=== PATIENT | female | born 1970 | race Hispanic/Latino ===

== ENCOUNTER 2020-01-08 11:31 | Emergency (ER) | payer BC ==
[2020-01-08 12:51] LABS: #Basophils 0.1 thou/uL (0.0-0.2); #Eosinphils 0.3 thou/uL (0.0-0.7); #Lymphocytes 1.5 thou/uL (1.20-3.40); #Monocytes 0.4 thou/uL (0.11-0.59); %Basophils 2.1 % (0.0-1.0); %Eosinophils 7.2 % (0.0-10.0); %Lymphocytes 35.2 % (21.0-51.0); %Monocytes 8.7 % (0.0-10.0); %Neutrophils 46.9 % (42.0-75.0); Hemoglobin 10.7 g/dL (12.0-16.0); White Blood Cell (WBC) Count 4.3 thou/uL (4.8-10.8)
--- NOTE | 2020-01-08 13:02 | CT ---
EXAM: Brain CTWithout contrast: HISTORY: Double vision COMPARISON: None FINDINGS: No focal mass or midline shift. No intra or extra-axial hemorrhage. Sinuses and mastoids are clear of acute process. IMPRESSION: No mass or bleed or other significant acute intracranial process.
[2020-01-08 13:06] LABS: Mean Corpuscular HGB CONC 31.4 g/dL (32.0-36.0); Mean Corpuscular Hemoglobin 22.9 pg (27.0-31.0); Mean Corpuscular Volume 72.9 fL (78.0-98.0); Platelet Count 318 thou/uL (130-400); RBC Distribution Width 15.4 % (11.5-14.5)
[2020-01-08 13:07] LABS: ALT (SGPT) 26 U/L (8-55); AST (SGOT) 30 U/L (5-34); Albumin 4.4 g/dL (3.5-5.0); Alkaline Phosphatase 52 U/L (40-110); Anion Gap 14 mmol/L (10-20); BUN (Urea Nitrogen) 12 mg/dL (7.0-18.7); Bilirubin, Total 0.4 mg/dL (0.2-1.2); Calc. Creatinine Clearance 0 mL/min (70-130); Calcium 9.4 mg/dL (7.8-10.44); Carbon Dioxide 21 mmol/L (22-29); Chloride 105 mmol/L (98-107); Estimated GFR-MDRD Greater than 90; Globulin 3.1 g/dL (2.4-3.5); Glucose 192 mg/dL (70-105); Potassium 3.9 mmol/L (3.5-5.1); Protein, Total 7.5 g/dL (6.0-8.3); Sodium 136 mmol/L (136-145)
[2020-01-08 13:15] LABS: MDiff Complete? YES; Microcytosis SLIGHT = 6-15 cells (100X) (0-5/hpf); Platelet Morphology Comment Appears Adequate; Polychromasia SLIGHT = 2-3 cells (100X) (0-2/hpf); Target Cells SLIGHT = 2-5 cells (100X) (0-1/hpf); Tear Drops SLIGHT = 2-5 cells (100X) (0-1/hpf)
== END 2020-01-08 14:25 | disposition home or self-care (01) ==
LOC: ERS 11:31
DX: G70.9 Myoneural disorder, unspecified (principal); E11.9 Type 2 diabetes mellitus without complications; I10 Essential (primary) hypertension; E03.9 Hypothyroidism, unspecified; Z79.84 Long term (current) use of oral hypoglycemic drugs; Z79.899 Other long term (current) drug therapy
CPT/HCPCS: 36415; 70450; 80053; 83519; 84439; 85025; 85652

== ENCOUNTER 2020-01-15 18:24 | Inpatient (IN) | payer BC ==
[~2020-01-15 18:24] MED LIST: Iopamidol-370 76% 500 ML 1 ML ONE
[2020-01-15] MEDS ORDERED: cefTRIAXone\\ROCEPHIN 2 GM VIAL ONE (19:08)
[2020-01-15] MEDS ORDERED: methylPREDNISolone Sod Succ/PF 125 MG/2 ML VIAL ONE (19:10)
[2020-01-15 19:18] LABS: Actual Bicarbonate (HCO3a) 19.4 mEq/L (22-28); Analyzer IN Cardio ER; Base Excess (BEa) -3.9 mEq/L (-2.0 to +3.0); Calcium, Ionized (arterial) 1.18 mmol/L (1.12-1.30); Carboxyhemoglobin (COHb) 0.5 gm% (0.0-3.0); Hemoglobin (Hb) 11.7 g/dL (12.0-16.0); O2 Tension (PaO2), arterial 77.9 mmHg (80.0-100.0); Potassium - ABG Lab 3.99 mmol/L (3.70-5.30); pH, Arterial 7.43 (7.35-7.45)
[2020-01-15 19:19] LABS: Puncture Site LRA
[2020-01-15 19:21] LABS: #Eosinphils 0.3 thou/uL (0.0-0.7); #Lymphocytes 2.1 thou/uL (1.20-3.40); #Monocytes 0.6 thou/uL (0.11-0.59); #Neutrophils 2.6 thou/uL (1.40-6.50); %Eosinophils 5.3 % (0.0-10.0); %Lymphocytes 37.5 % (21.0-51.0); %Monocytes 10.9 % (0.0-10.0); %Neutrophils 46.4 % (42.0-75.0); Hemoglobin 11.4 g/dL (12.0-16.0); Mean Corpuscular HGB CONC 31.4 g/dL (32.0-36.0); Mean Corpuscular Hemoglobin 23.1 pg (27.0-31.0); Mean Corpuscular Volume 73.7 fL (78.0-98.0); Mean Platelet Volume 7.7 fL (7.4-10.4); Platelet Count 366 thou/uL (130-400); RBC Distribution Width 15.7 % (11.5-14.5); Red Blood Cell (RBC) Count 4.91 mill/uL (4.20-5.40); White Blood Cell (WBC) Count 5.7 thou/uL (4.8-10.8)
[2020-01-15 19:42] LABS: ALT (SGPT) 24 U/L (8-55); AST (SGOT) 24 U/L (5-34); Albumin 4.6 g/dL (3.5-5.0); Alkaline Phosphatase 51 U/L (40-110); Anion Gap 16 mmol/L (10-20); BUN (Urea Nitrogen) 9 mg/dL (7.0-18.7); Bilirubin, Total 0.3 mg/dL (0.2-1.2); Calc. Creatinine Clearance 0 mL/min (70-130); Calcium 9.6 mg/dL (7.8-10.44); Carbon Dioxide 21 mmol/L (22-29); Chloride 102 mmol/L (98-107); Estimated GFR-MDRD Greater than 90; Glucose 133 mg/dL (70-105); Magnesium 1.9 mg/dL (1.6-2.6); Potassium 4.1 mmol/L (3.5-5.1); Protein, Total 7.6 g/dL (6.0-8.3); Sodium 135 mmol/L (136-145)
[2020-01-15] MEDS ORDERED: Calcium Carbonate 500 MG ChewTAB PO PRN (20:21)
[2020-01-15] MEDS ORDERED: Ondansetron ODT 4 MG TAB PO PRN (20:21)
[2020-01-15] MEDS ORDERED: Acetaminophen 650 MG Suppository PR PRN (20:21)
[2020-01-15] MEDS ORDERED: Ondansetron PF 4 MG/2 ML Vial IVP PRN (20:21)
[2020-01-15] MEDS ORDERED: HYDROcodone/Acetaminophen 5/325 mg Tablet PO PRN (20:21)
[2020-01-15 20:23] LABS: Bilirubin Negative (Negative); Blood, Urine Negative (Negative); Clarity Clear (Clear); Glucose, Urine (Dipstick) Greater than 1000 mg/dL (Negative); Ketone, Urine Negative (Negative); Leukocyte Negative Leu/uL (Negative); Nitrite Negative (Negative); Protein, Urine (Dipstick) Negative (Neg-Trace); Specific Gravity, Urine 1.041 (1.002-1.036); Urobilinogen Normal mg/dL (Less than 2); pH, Urine 5.5 (5.0-9.0)
--- NOTE | 2020-01-15 20:28 | PDOC.HHP ---
Hospitalist HPI - History of Present Illness weakness dizzyness sob History of Present Illness: case of an 49y/o female with pmhx HTN, DM hypothyroidism and ocular myasthenia dx 1 week ago who comes to hospital due to progressive weakness and dyspnea. patient states her initial symptoms started with several weeks of double vision, last week she came to the hospital for the same symptoms and was diagnosed with ocular myasthenia gravis by Dr. Winters. she was discharge with mestinon which she refers has been taking. She reports began feeling much weaker and began to have difficulty breathing since wens which was progressive and more pronounce today for which she came to hospital for evaluation. She denies any recent fevers chills nausea vomiting diarrhea dysuria or cough Hospitalist ROS - Review of Systems All other systems reviewed; all pertinent +/- noted in HPI/Subj Hospitalist History - Past Surgical History Past Surgical History: reports: - Family History Family History: reports: no pertinent history - Social History Smoking Status: Never smoker Alcohol: reports: Heavy Drugs: reports: none Living Situation: With Family - Exam General Appearance: NAD, awake alert Eye: PERRL, anicteric sclera Eye - other findings: L ptosis ENT: normocephalic atraumatic, no oropharyngeal lesions, moist mucosa ENT - other findings: neck weakness Neck: supple, symmetric, no JVD, no thyromegaly, no lymphadenopathy Heart: RRR, no murmur, no gallops, no rubs Respiratory: CTAB, no wheezes, no rales, no ronchi Gastrointestinal: soft, non-tender, non-distended, normal bowel sounds Extremities: no cyanosis, no clubbing, no edema Skin: normal turgor, no lesions, no rashes Neurological: normal sensation to touch Neurological - other findings: ptosis Musculoskeletal: normal tone, no muscle wasting Musculoskeletal - other findings: 4/5 in all extremities Psychiatric: normal affect, normal behavior, A&O x 3 Hospitalist Results - Labs Result Diagrams: 01/15/20 18:59 01/15/20 18:59 Lab results: WBC 5.7 thou/uL (4.8-10.8) 01/15/20 18:59 Hgb 11.4 g/dL (12.0-16.0) L 01/15/20 18:59 Hct 36.2 % (36.0-47.0) 01/15/20 18:59 MCV 73.7 fL (78.0-98.0) L 01/15/20 18:59 Plt Count 366 thou/uL (130-400) 01/15/20 18:59 Neutrophils % 46.4 % (42.0-75.0) 01/15/20 18:59 ABG pH 7.43 (7.35-7.45) 01/15/20 18:59 ABG pCO2 30.0 mmHg (35.0-45.0) L 01/15/20 18:59 ABG pO2 77.9 mmHg (80.0-100.0) L 01/15/20 18:59 Sodium 135 mmol/L (136-145) L 01/15/20 18:59 Potassium 4.1 mmol/L (3.5-5.1) 01/15/20 18:59 Chloride 102 mmol/L (98-107) 01/15/20 18:59 Carbon Dioxide 21 mmol/L (22-29) L 01/15/20 18:59 BUN 9 mg/dL (7.0-18.7) 01/15/20 18:59 Creatinine 0.62 mg/dL (0.6-1.1) 01/15/20 18:59 Glucose 133 mg/dL (70-105) H 01/15/20 18:59 Calcium 9.6 mg/dL (7.8-10.44) 01/15/20 18:59 Total Bilirubin 0.3 mg/dL (0.2-1.2) 01/15/20 18:59 AST 24 U/L (5-34) 01/15/20 18:59 ALT 24 U/L (8-55) 01/15/20 18:59 Alkaline Phosphatase 51 U/L (40-110) 01/15/20 18:59 Troponin I Less than 0.010 ng/mL (< 0.028) 01/15/20 18:59 Serum Total Protein 7.6 g/dL (6.0-8.3) 01/15/20 18:59 Albumin 4.6 g/dL (3.5-5.0) 01/15/20 18:59 Urine Ketones Negative mg/dL (Negative) 01/15/20 19:35 Urine Blood Negative (Negative) 01/15/20 19:35 Urine Nitrite Negative (Negative) 01/15/20 19:35 Ur Leukocyte Esterase Negative Eliazar/uL (Negative) 01/15/20 19:35 Hospitalist H&P A/P - Problem (1) Myasthenia exacerbation Code(s): G70.01 - MYASTHENIA GRAVIS WITH (ACUTE) EXACERBATION Status: Acute (2) Acute respiratory failure Code(s): J96.00 - ACUTE RESPIRATORY FAILURE, UNSP W HYPOXIA OR HYPERCAPNIA Status: Acute (3) Diabetes Code(s): E11.9 - TYPE 2 DIABETES MELLITUS WITHOUT COMPLICATIONS Status: Acute (4) HTN (hypertension) Code(s): I10 - ESSENTIAL (PRIMARY) HYPERTENSION Status: Acute (5) Hypothyroidism Code(s): E03.9 - HYPOTHYROIDISM, UNSPECIFIED Status: Acute - Plan Plan: Case of an 49y/o female recently diagnosed with ocular myasthenia based on presenting symptoms, who comes to myasthenia crisis myasthenia crisis - will start IVIG 1gxkg for 1-2 days - given 125 solumedrol at ED, will hold more steroids for now until ivig is given - neurology consult - chest ct for thymoma r/o - acethylcholine receptor antibodies respiratory failure - currently on bipap, tolerating well - pulmonology consult - low threshold for MV DM -acc+ss htn - prn hydralazine hypothyroidism - check tsh - resume home meds
[2020-01-15] MEDS ORDERED: Dextrose 5% in Water 1,000 ML IV PRN (20:49)
[2020-01-15] MEDS ORDERED: HumaLOG 300 UNITS/3 ML VIAL SC PRN (20:49)
[2020-01-15] MEDS ORDERED: Dextrose 50% Abboject 50 ML SYRINGE SLOW IVP PRN (20:49)
[2020-01-15] MEDS ORDERED: hydrALAZINE 20 MG/ML VIAL SLOW IVP PRN (20:50)
--- NOTE | 2020-01-15 22:20 | CT ---
CT CHEST WITH IV CONTRAST: Date: 01/15/2020 PROVIDED CLINICAL HISTORY: Myasthenia gravis, difficulty breathing. FINDINGS: Minimal coronary calcium is seen. The heart, pericardium, and great vessels demonstrate an unremarka ble CT appearance. There is no evidence for mediastinal mass. The lungs are free of significant opacity. The airway appears patent and of normal caliber. There is no pleural fluid or pneumothorax apparent. There is no evidence for thoracic lymph node enlargement. The visualized portions of the upper abdomen demonstrate an unremarkable CT appearance as visualized. The osseous structures demonstrate no concerning lytic or blastic lesions. IMPRESSION: No evidence for an acute process. POS: KAREEM
[2020-01-15 22:29] VITALS: BMI 32.6
[2020-01-15] MEDS: OCTAGAM 10% 60 GM in Admixture Fee 1 EACH IVPB SCH (23:24)
[2020-01-16] MEDS ORDERED: Pyridostigmine Bromide IR 60 MG TAB PO SCH (01:15)
[2020-01-16 04:20] LABS: Band 15 % (5-11); Hemoglobin 10.9 g/dL (12.0-16.0); Lymphocytes 5 % (21-51); MDiff Complete? YES; Mean Corpuscular HGB CONC 30.9 g/dL (32.0-36.0); Mean Corpuscular Hemoglobin 22.9 pg (27.0-31.0); Neutrophil 80 % (42-75); Platelet Count 360 thou/uL (130-400); Platelet Morphology Comment Appears Adequate; RBC Distribution Width 15.8 % (11.5-14.5); Red Blood Cell (RBC) Count 4.75 mill/uL (4.20-5.40); White Blood Cell (WBC) Count 7.1 thou/uL (4.8-10.8)
[2020-01-16 04:54] LABS: ALT (SGPT) 23 U/L (8-55); AST (SGOT) 20 U/L (5-34); Albumin 4.4 g/dL (3.5-5.0); Alkaline Phosphatase 49 U/L (40-110); Anion Gap 16 mmol/L (10-20); BUN (Urea Nitrogen) 8 mg/dL (7.0-18.7); Bilirubin, Total 0.6 mg/dL (0.2-1.2); Calc. Creatinine Clearance 128 mL/min (70-130); Calcium 9.6 mg/dL (7.8-10.44); Carbon Dioxide 19 mmol/L (22-29); Chloride 100 mmol/L (98-107); Estimated GFR-MDRD 89; Globulin 5.1 g/dL (2.4-3.5); Glucose 160 mg/dL (70-105); Potassium 4.3 mmol/L (3.5-5.1); Protein, Total 9.5 g/dL (6.0-8.3); Sodium 131 mmol/L (136-145)
[2020-01-16 08:53] LABS: SARS-CoV-2 MS2 Positive; SARS-CoV-2 N Gene Negative; SARS-CoV-2 S Gene Negative; SARS-CoV-2 by NAA Not Detected (NotDetected); SARS-CoV-2 orf1ab Negative
--- NOTE | 2020-01-16 08:59 | PDOC.HOSPP ---
- Subjective Encounter Date: 01/16/20 Encounter Time: 08:35 Subjective: is on bipap and comfortable breathing no weakness in any extremities, is able to take good deep breaths at present - Objective Vital Signs & Weight: Vital Signs (12 hours) Temp Pulse Ox 01/16/20 08:01 97.8 F 01/16/20 08:00 99 01/16/20 04:15 97.8 F 01/15/20 23:25 97.2 F L 01/15/20 22:45 95 01/15/20 22:14 98.4 F Weight Weight 184 lb 6.4 oz Most Recent Monitor Data Heart Rate from ECG 92 NIBP 108/63 NIBP BP-Mean 78 Respiration from ECG 14 SpO2 96 I&O: 01/15/20 01/16/20 01/17/20 06:59 06:59 06:59 Intake Total 650 Output Total 1850 Balance -1200 Result Diagrams: 01/16/20 03:29 01/16/20 03:29 Additional Labs: Accuchecks 01/16/20 01/15/20 05:54 23:34 POC Glucose 134 H 177 H Hospitalist ROS - Medication Medications: Active Medications Generic Name Dose Route Start Last Admin Trade Name Freq PRN Reason Stop Dose Admin Immune Globulin 60 gm/ 600 mls @ 0 mls/hr 01/15/20 23:59 01/15/20 23:24 Miscellaneous Medication IVPB 01/17/20 00:00 600 mls Q24HR LELO Administration As Directed - Exam General Appearance: awake alert Eye: PERRL, anicteric sclera ENT: no oropharyngeal lesions, moist mucosa Neck: supple, no JVD Heart: RRR, no murmur Respiratory: no wheezes, no rales Gastrointestinal: soft, non-tender, non-distended, normal bowel sounds Extremities: no cyanosis, no edema Neurological: cranial nerve grossly intact, no focal deficits Psychiatric: normal affect, A&O x 3 Hosp A/P (1) Myasthenia exacerbation Code(s): G70.01 - MYASTHENIA GRAVIS WITH (ACUTE) EXACERBATION Status: Suspected (2) Acute respiratory failure Code(s): J96.00 - ACUTE RESPIRATORY FAILURE, UNSP W HYPOXIA OR HYPERCAPNIA Status: Acute (3) Diabetes Code(s): E11.9 - TYPE 2 DIABETES MELLITUS WITHOUT COMPLICATIONS Status: Ch ronic Qualifiers: Diabetes mellitus type: type 2 Diabetes mellitus buttermaker helper insulin use: without mcfp use (4) HTN (hypertension) Code(s): I10 - ESSENTIAL (PRIMARY) HYPERTENSION Status: Chronic Qualifiers: Hypertension type: essential hypertension Qualified Code(s): I10 - Essential (primary) hypertension (5) Hypothyroidism Code(s): E03.9 - HYPOTHYROIDISM, UNSPECIFIED Status: Chronic Qualifiers: Hypothyroidism type: acquired Qualified Code(s): E03.9 - Hypothyroidism, unspecified - Plan is on mestinon and IV Ig, await neuro opinion was recently diagnosed with ocular left eye lid lag a week back june dc bipap if cleared by pulmonary and transfer to med floor continue home meds crestor, synthroid and ferrous sulfate will add dm meds from this evening PT areli
[2020-01-16] MEDS ORDERED: OCTAGAM 10% (10 GM/100 ML VIAL) IVPB SCH (09:00)
[2020-01-16] MEDS: Pyridostigmine Bromide IR 60 MG TAB PO SCH ×2 (09:54→21:18)
[2020-01-16] MEDS: Enoxaparin Sodium 40 MG/0.4 ML SYRINGE SC SCH (09:54)
[2020-01-16] MEDS: Acetaminophen 325 MG TAB PO PRN ×2 (09:57→21:23)
--- NOTE | 2020-01-16 11:21 | CON ---
DATE OF CONSULTATION: 01/16/2020 CONSULTING PHYSICIAN: Hospitalist Group. REASON FOR CONSULTATION: Myasthenic crisis. HISTORY OF PRESENT ILLNESS: The patient is a 49-year-old, who came to the hospital yesterday with a one-week history of ocular myasthenic symptoms. Over the course of a week, she developed progressive shortness of breath. An ABG did not show hypercapnia, but she was placed on BiPAP. She was given IVIG and she now feels better. She was off mechanical ventilation when I saw her this morning. She has no pre-existing pulmonary issues. PAST MEDICAL HISTORY: 1. Myasthenia gravis, recently diagnosed. 2. Diabetes mellitus type 2. 3. Hypothyroidism. 4. Hypertension. PAST SURGICAL HISTORY: . FAMILY MEDICAL HISTORY: Unremarkable. SOCIAL HISTORY: Never smoker. Does not consume much alcohol. Does not use illicit drugs. 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 MEDICATIONS: Prior to admission, 1. Mestinon 60 mg b.i.d. 2. Vitamin D2 of 50,000 units daily. 3. Lisinopril 20 mg daily. 4. Levothyroxine 125 mcg daily. 5. Ferrous sulfate 324 mg daily. 6. Trulicity 0.75 mg subcu every seven days. 7. Glucophage 1000 mg daily. 8. Crestor 10 mg daily. 9. Fluoxetine 20 mg daily. 10. Invokana 300 mg daily. REVIEW OF SYSTEMS: Twelve-point review of systems is otherwise negative. PHYSICAL EXAMINATION: VITAL SIGNS: Temperature 97.8, pulse 92, blood pressure 108/63, and O2 saturation 96%. O2 saturation 100% on room air at this time. HEENT: Unremarkable except for slightly dysconjugate gaze. Extraocular movements are intact. Tongue protrudes midline. NECK: No adenopathy, JVD, or bruits. LUNGS: Clear to auscultation. No wheezing or rhonchi. CARDIAC: S1, S2. Regular without murmur. ABDOMEN: Soft and nontender. EXTREMITIES: No clubbing, cyanosis, or edema. LABORATORY DATA: CT of the chest was negative. ABG; pH 7.43, pCO2 of 30, pO2 of 77 on room air. White blood cell count 7.1, hematocrit 35.1, and platelet count 360. Sodium 131, potassium 4.3, chloride 100, CO2 of 19, BUN 8, creatinine 0.7, and glucose 160. TSH 0.0145. ASSESSMENT: 1. Myasthenia gravis with exacerbation-improved after IVIG. 2. Transient respiratory failure, which has now resolved. RECOMMENDATIONS: I will continue to monitor in the intermediate care for 24 more hours with serial vital capacity checks. She needs urgent neurologic consultation in terms of how much IVIG to give and whether or not she needs to be on steroids in addition to the Mestinon. If she is doing well tomorrow, she can transfer to the floor. Job ID: [id number]
--- NOTE | 2020-01-16 12:31 | CON ---
NEUROLOGY CONSULTATION DATE OF CONSULTATION: 01/16/2020 REASON FOR CONSULTATION: Myasthenia gravis crisis. HISTORY OF PRESENT ILLNESS: Ms. Gamez is a 49-year-old female with history significant for hypertension, diabetes mellitus, hypothyroidism, and ocular myasthenia diagnosed 1 week ago, presented to the hospital with progressive weakness, dyspnea, and episodes of double vision. Per patient, her initial symptoms started several weeks ago with double vision, but last week she came to the hospital with the same symptoms and was diagnosed with ocular myasthenia gravis by Dr. Slade and was discharged with Mestinon. Per the patient, she has been taking Mestinon, but felt more weaker and difficulty breathing with blurred vision, so she decided to come to the hospital for further evaluation. The patient denies any focal numbness, focal paresthesias, nausea, vomiting, headache, diarrhea, chest pain, cough, fever, chills, recent illness, or recent sick contacts or exposure to COVID. REVIEW OF SYSTEMS: All systems reviewed and were negative except the pertinent positives and negatives mentioned in the HPI. PAST SURGICAL HISTORY: section. FAMILY HISTORY: No significant family history. SOCIAL HISTORY: The patient denies smoking. She does have history of alcohol abuse. Lives with the family. ALLERGIES: No known drug allergies Vital Signs & Weight: Vital Signs (12 hours) Temp Pulse Ox 01/16/20 08:01 97.8 F 01/16/20 08:00 99 01/16/20 04:15 97.8 F 01/15/20 23:25 97.2 F L 01/15/20 22:45 95 01/15/20 22:14 98.4 F Weight Weight 184 lb 6.4 oz Most Recent Monitor Data Heart Rate from ECG 92 NIBP 108/63 NIBP BP-Mean 78 Respiration from ECG 14 SpO2 96 I&O: 01/15/20 01/16/20 01/17/20 06:59 06:59 06:59 Intake Total 650 Output Total 1850 Balance -1200 Additional Labs: Accuchecks 01/16/20 01/15/20 05:54 23:34 POC Glucose 134 H 177 H Active Medications Generic Name Dose Route Start Last Admin Trade Name Freq PRN Reason Stop Dose Admin Immune Globulin 60 gm/ 600 mls @ 0 mls/hr 01/15/20 23:59 01/15/20 23:24 Miscellaneous Medication IVPB 01/17/20 00:00 600 mls Q24HR LELO Administration As Directed PHYSICAL EXAMINATION: General Appearance: awake alert Eye: PERRL, anicteric sclera ENT: no oropharyngeal lesions, moist mucosa Neck: supple, no JVD Heart: RRR, no murmur Respiratory: no wheezes, no rales Gastrointestinal: soft, non-tender, non-distended, normal bowel sounds Extremities: no cyanosis, no edema Neurological: Mental status, the patient is alert and oriented to person, place, and time. Speech is clear. Recent and remote memory intact. Cranial nerves 2 through 12 intact except ptosis and weakness of the orbicularis oculi left eye. Motor, muscle tone and bulk are normal. Generalized weakness 4/5 bilaterally. Cerebellar intact. Sensory intact. Gait deferred due to the patient's safety reasons. DIAGNOSTIC STUDIES: Data reviewed. I reviewed the labs which were significant for hyperglycemia 133 and hyponatremia 135. Lab results: WBC 5.7 thou/uL (4.8-10.8) 01/15/20 18:59 Hgb 11.4 g/dL (12.0-16.0) L 01/15/20 18:59 Hct 36.2 % (36.0-47.0) 01/15/20 18:59 MCV 73.7 fL (78.0-98.0) L 01/15/20 18:59 Plt Count 366 thou/uL (130-400) 01/15/20 18:59 Neutrophils % 46.4 % (42.0-75.0) 01/15/20 18:59 ABG pH 7.43 (7.35-7.45) 01/15/20 18:59 ABG pCO2 30.0 mmHg (35.0-45.0) L 01/15/20 18:59 ABG pO2 77.9 mmHg (80.0-100.0) L 01/15/20 18:59 Sodium 135 mmol/L (136-145) L 01/15/20 18:59 Potassium 4.1 mmol/L (3.5-5.1) 01/15/20 18:59 Chloride 102 mmol/L (98-107) 01/15/20 18:59 Carbon Dioxide 21 mmol/L (22-29) L 01/15/20 18:59 BUN 9 mg/dL (7.0-18.7) 01/15/20 18:59 Creatinine 0.62 mg/dL (0.6-1.1) 01/15/20 18:59 Glucose 133 mg/dL (70-105) H 01/15/20 18:59 Calcium 9.6 mg/dL (7.8-10.44) 01/15/20 18:59 Total Bilirubin 0.3 mg/dL (0.2-1.2) 01/15/20 18:59 AST 24 U/L (5-34) 01/15/20 18:59 ALT 24 U/L (8-55) 01/15/20 18:59 Alkaline Phosphatase 51 U/L (40-110) 01/15/20 18:59 Troponin I Less than 0.010 ng/mL (< 0.028) 01/15/20 18:59 Serum Total Protein 7.6 g/dL (6.0-8.3) 01/15/20 18:59 Albumin 4.6 g/dL (3.5-5.0) 01/15/20 18:59 Urine Ketones Negative mg/dL (Negative) 01/15/20 19:35 Urine Blood Negative (Negative) 01/15/20 19:35 Urine Nitrite Negative (Negative) 01/15/20 19:35 Ur Leukocyte Esterase Negative Eliazar/uL (Negative) 01/15/20 19:35 ASSESSMENT AND PLAN: (1) Myasthenia exacerbation Code(s): G70.01 - MYASTHENIA GRAVIS WITH (ACUTE) EXACERBATION Status: Suspected (2) Acute respiratory failure Code(s): J96.00 - ACUTE RESPIRATORY FAILURE, UNSP W HYPOXIA OR HYPERCAPNIA Status: Acute (3) Diabetes Code(s): E11.9 - TYPE 2 DIABETES MELLITUS WITHOUT COMPLICATIONS Status: Chronic Qualifiers: Diabetes mellitus type: type 2 Diabetes mellitus fpc insulin use: without firer marine use (4) HTN (hypertension) Code(s): I10 - ESSENTIAL (PRIMARY) HYPERTENSION Status: Chronic Qualifiers: Hypertension type: essential hypertension Qualified Code(s): I10 - Essential (primary) hypertension (5) Hypothyroidism Code(s): E03.9 - HYPOTHYROIDISM, UNSPECIFIED Status: Chronic Qualifiers: Hypothyroidism type: acquired Qualified Code(s): E03.9 - Hypothyroidism, unspecified Ms. Gamez is a 49-year-old female, presented with myasthenia gravis exacerbation. Continue IVIG 1 g/kg for 3 days. Close monitoring of the respiratory function. Continue home dose of Mestinon. Neuro checks every 2 hours. Continue home medications. Continue medical management per primary team. Chest CT to rule out thymoma. Strict control of blood glucose and blood pressure. PT/OT. DVT prophylaxis with SCD. We will continue to follow. Thank you for the consult. Job ID: [id number] MTDD
[2020-01-16] MEDS: Rosuvastatin 10 MG TAB PO SCH (21:18)
[2020-01-16] MEDS: OCTAGAM 10% 60 GM in Admixture Fee 1 EACH IVPB SCH (23:11)
[2020-01-17] MEDS: Levothyroxine Sodium 125 MCG TAB PO SCH (07:23)
[2020-01-17] MEDS: Ergocalciferol 1.25 MG(50,000 UNITS) CAP PO SCH (08:33)
[2020-01-17] MEDS: FLUoxetine HCl 20 MG CAP PO SCH (08:33)
[2020-01-17] MEDS: Pyridostigmine Bromide IR 60 MG TAB PO SCH ×2 (08:33→21:10)
[2020-01-17] MEDS: Ferrous Gluconate 324 MG TAB PO SCH (08:34)
[2020-01-17] MEDS: Enoxaparin Sodium 40 MG/0.4 ML SYRINGE SC SCH (08:41)
--- NOTE | 2020-01-17 08:51 | PDOC.HOSPP ---
- Subjective Encounter Date: 01/17/20 Encounter Time: 08:35 Subjective: no sob or weakness did not use bipap overnight, is sitting on bed and watching tv - Objective Vital Signs & Weight: Vital Signs (12 hours) Temp 01/17/20 08:00 97.2 F L 01/17/20 04:00 98.4 F 01/16/20 23:21 98.5 F Weight Weight 184 lb 6.4 oz Most Recent Monitor Data Heart Rate from ECG 78 NIBP 114/81 NIBP BP-Mean 92 Respiration from ECG 14 SpO2 97 I&O: 01/16/20 01/17/20 01/18/20 06:59 06:59 06:59 Intake Total 650 890 Output Total 1850 1100 Balance -1200 -210 Result Diagrams: 01/16/20 03:29 01/16/20 03:29 Additional Labs: Accuchecks 01/17/20 01/16/20 01/16/20 06:33 23:16 18:11 POC Glucose 101 H 125 H 146 H Hospitalist ROS - Medication Medications: Active Medications Generic Name Dose Route Start Last Admin Trade Name Freq PRN Reason Stop Dose Admin Acetaminophen 650 mg 01/15/20 20:21 01/16/20 21:23 Acetaminophen 325 Mg Tab PO 650 mg Q4H PRN Administration Headache/Fever/Mild Pain (1-3) Enoxaparin Sodium 40 mg 01/16/20 09:00 01/17/20 08:41 Enoxaparin Sodium 40 Mg/0.4 Ml Syringe SC Not Given 0900 LELO Ergocalciferol 1.25 mg 01/17/20 09:00 01/17/20 08:33 Ergocalciferol 1.25 Mg(50,000 Units) Cap PO 1.25 mg DAILY LELO Administration Ferrous Gluconate 324 mg 01/17/20 09:00 01/17/20 08:34 Ferrous Gluconate 324 Mg Tab PO 324 mg DAILY LELO Administration Fluoxetine HCl 20 mg 01/17/20 09:00 01/17/20 08:33 Fluoxetine Hcl 20 Mg Cap PO 20 mg DAILY LELO Administration Levothyroxine Sodium 125 mcg 01/17/20 06:00 01/17/20 07:23 Levothyroxine Sodium 125 Mcg Tab PO 125 mcg 0600 LELO Administration Pyridostigmine Marcus 60 mg 01/16/20 09:00 01/17/20 08:33 Pyridostigmine Marcus Ir 60 Mg Tab PO 60 mg BID LELO Administration Rosuvastatin Calcium 10 mg 01/16/20 21:00 01/16/20 21:18 Rosuvastatin 10 Mg Tab PO 10 mg 2100 LELO Administration - Exam General Appearance: awake alert Eye: PERRL, anicteric sclera ENT: no oropharyngeal lesions, moist mucosa Neck: supple, no JVD Heart: RRR, no murmur Respiratory: no wheezes, no rales Gastrointestinal: soft, non-tender, non-distended, normal bowel sounds Extremities: no cyanosis, no edema Neurological: cranial nerve grossly intact, no focal deficits Psychiatric: normal affect, A&O x 3 Hosp A/P (1) Myasthenia exacerbation Code(s): G70.01 - MYASTHENIA GRAVIS WITH (ACUTE) EXACERBATION Status: Acute (2) Acute respiratory failure Code(s): J96.00 - ACUTE RESPIRATORY FAILURE, UNSP W HYPOXIA OR HYPERCAPNIA Status: Resolved (3) Diabetes Code(s): E11.9 - TYPE 2 DIABETES MELLITUS WITHOUT COMPLICATIONS Status: Chronic Qualifiers: Diabetes mellitus type: type 2 Diabetes mellitus group home insulin use: without applications sales representative use (4) HTN (hypertension) Code(s): I10 - ESSENTIAL (PRIMARY) HYPERTENSION Status: Chronic Qualifiers: Hypertension type: essential hypertension Qualified Code(s): I10 - Essential (primary) hypertension (5) Hypothyroidism Code(s): E03.9 - HYPOTHYROIDISM, UNSPECIFIED Status: Chronic Qualifiers: Hypothyroidism type: acquired Qualified Code(s): E03.9 - Hypothyroidism, unspecified - Plan is on mestinon and IV Ig day 2 of 3 was recently diagnosed with ocular left eye lid lag a week back may transfer to med floor if cleared by Pulmonology continue home meds crestor, synthroid and ferrous sulfate encourage po intake and ambulation as tolerated PT eval
--- NOTE | 2020-01-17 10:41 | PRG ---
DATE OF SERVICE: 01/17/2020 SUBJECTIVE: She briefly is BiPAP'd yesterday, but overall feels like she does not need it anymore. OBJECTIVE: VITAL SIGNS: Her temperature is 97.2, pulse 92, blood pressure 114/81, and O2 saturation 99%. HEENT: Unremarkable. NECK: No adenopathy or JVD. CHEST: Clear. CARDIAC: S1 and S2. Regular. ABDOMEN: Soft. EXTREMITIES: No edema. LABORATORY DATA: No new labs were done today. ASSESSMENT: Myasthenia gravis. PLAN: The patient could be transferred out to the medical floor from my standpoint. She does not need the BiPAP anymore. Please feel free to call for further concerns. Job ID: [id number]
[2020-01-17] MEDS: Acetaminophen 325 MG TAB PO PRN ×2 (14:12→21:10)
--- NOTE | 2020-01-17 15:04 | PDOC.NEUPN ---
- Subjective Encounter Date: 01/17/20 Subjective: Patient denies SOB or chest tightness. Vision improved. - Objective Vital Signs & Weight: Vital Signs (12 hours) Temp 01/17/20 12:00 97.9 F 01/17/20 08:00 97.2 F L 01/17/20 04:00 98.4 F Weight Weight 184 lb 6.4 oz Most Recent Monitor Data Heart Rate from ECG 87 NIBP 122/82 NIBP BP-Mean 95 Respiration from ECG 20 SpO2 98 I&O: 01/16/20 01/17/20 01/18/20 06:59 06:59 06:59 Intake Total 650 890 Output Total 1850 1100 Balance -1200 -210 Result Diagrams: 01/16/20 03:29 01/16/20 03:29 Additional Labs: Accuchecks 01/17/20 01/17/20 01/16/20 12:42 06:33 23:16 POC Glucose 91 101 H 125 H 01/16/20 18:11 POC Glucose 146 H Radiology Reviewed by me: Yes EKG Reviewed by me: Yes ROS - Medication Medications: Active Medications Generic Name Dose Route Start Last Admin Trade Name Freq PRN Reason Stop Dose Admin Acetaminophen 650 mg 01/15/20 20:21 01/17/20 14:12 Acetaminophen 325 Mg Tab PO 650 mg Q4H PRN Administration Headache/Fever/Mild Pain (1-3) Enoxaparin Sodium 40 mg 01/16/20 09:00 01/17/20 08:41 Enoxaparin Sodium 40 Mg/0.4 Ml Syringe SC Not Given 0900 LELO Ergocalciferol 1.25 mg 01/17/20 09:00 01/17/20 08:33 Ergocalciferol 1.25 Mg(50,000 Units) Cap PO 1.25 mg DAILY LELO Administration Ferrous Gluconate 324 mg 01/17/20 09:00 01/17/20 08:34 Ferrous Gluconate 324 Mg Tab PO 324 mg DAILY LELO Administration Fluoxetine HCl 20 mg 01/17/20 09:00 01/17/20 08:33 Fluoxetine Hcl 20 Mg Cap PO 20 mg DAILY LELO Administration Levothyroxine Sodium 125 mcg 01/17/20 06:00 01/17/20 07:23 Levothyroxine Sodium 125 Mcg Tab PO 125 mcg 0600 LELO Administration Pyridostigmine Clever 60 mg 01/16/20 09:00 01/17/20 08:33 Pyridostigmine Clever Ir 60 Mg Tab PO 60 mg BID LELO Administration Rosuvastatin Calcium 10 mg 01/16/20 21:00 01/16/20 21:18 Rosuvastatin 10 Mg Tab PO 10 mg 2100 LELO Administration - Exam General Appearance: awake alert Eye: PERRL ENT: normocephalic atraumatic Neck: supple Respiratory: CTAB Cardiovascular: RRR Gastrointestinal: soft Extremities: no cyanosis Skin: normal turgor Neurological: no new deficit Musculoskeletal: normal tone, normal strength, no muscle wasting PSYCH: normal affect, normal behavior, A&O x 3, oriented to person, oriented to place, oriented to time Results - Labs Result Diagrams: 01/16/20 03:29 01/16/20 03:29 Lab results: WBC 7.1 thou/uL (4.8-10.8) 01/16/20 03:29 Hgb 10.9 g/dL (12.0-16.0) L 01/16/20 03:29 Hct 35.1 % (36.0-47.0) L 01/16/20 03:29 MCV 74.0 fL (78.0-98.0) L 01/16/20 03:29 Plt Count 360 thou/uL (130-400) 01/16/20 03:29 Neutrophils % 46.4 % (42.0-75.0) 01/15/20 18:59 Band Neuts % (Manual) 15 % (5-11) H 01/16/20 03:29 ABG pH 7.43 (7.35-7.45) 01/15/20 18:59 ABG pCO2 30.0 mmHg (35.0-45.0) L 01/15/20 18:59 ABG pO2 77.9 mmHg (80.0-100.0) L 01/15/20 18:59 Sodium 131 mmol/L (136-145) L 01/16/20 03:29 Potassium 4.3 mmol/L (3.5-5.1) 01/16/20 03:29 Chloride 100 mmol/L (98-107) 01/16/20 03:29 Carbon Dioxide 19 mmol/L (22-29) L 01/16/20 03:29 BUN 8 mg/dL (7.0-18.7) 01/16/20 03:29 Creatinine 0.70 mg/dL (0.6-1.1) 01/16/20 03:29 Glucose 160 mg/dL (70-105) H 01/16/20 03:29 Calcium 9.6 mg/dL (7.8-10.44) 01/16/20 03:29 Total Bilirubin 0.6 mg/dL (0.2-1.2) 01/16/20 03:29 AST 20 U/L (5-34) 01/16/20 03:29 ALT 23 U/L (8-55) 01/16/20 03:29 Alkaline Phosphatase 49 U/L (40-110) 01/16/20 03:29 Troponin I Less than 0.010 ng/mL (< 0.028) 01/15/20 18:59 Serum Total Protein 9.5 g/dL (6.0-8.3) H 01/16/20 03:29 Albumin 4.4 g/dL (3.5-5.0) 01/16/20 03:29 Urine Ketones Negative mg/dL (Negative) 01/15/20 19:35 Urine Blood Negative (Negative) 01/15/20 19:35 Urine Nitrite Negative (Negative) 01/15/20 19:35 Ur Leukocyte Esterase Negative Eliazar/uL (Negative) 01/15/20 19:35 - Radiology Interpretation CT scan - chest Additional Comment: Ms. Gamez is a 49 year old female presented with MG exacerbation. She was diagnosed with ocular MG couple of weeks ago and is being followed by Dr. Nance as outpatient. Vision improved since the administration of IVIG. Day 2 of 3. Neuochecks every 4 hours. SOB PN A/P (1) Myasthenia exacerbation Code(s): G70.01 - MYASTHENIA GRAVIS WITH (ACUTE) EXACERBATION Status: Acute (2) Diabetes Code(s): E11.9 - TYPE 2 DIABETES MELLITUS WITHOUT COMPLICATIONS Status: Chronic Qualifiers: Diabetes mellitus type: type 2 Diabetes mellitus usp insulin use: without usp use (3) HTN (hypertension) Code(s): I10 - ESSENTIAL (PRIMARY) HYPERTENSION Status: Chronic Qualifiers: Hypertension type: essential hypertension Qualified Code(s): I10 - Essential (primary) hypertension (4) Hypothyroidism Code(s): E03.9 - HYPOTHYROIDISM, UNSPECIFIED Status: Chronic Qualifiers: Hypothyroidism type: acquired Qualified Code(s): E03.9 - Hypothyroidism, unspecified - Plan Daily Plan: PT/OT, respiratory therapy, DVT proph w/SCDs 49 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 Nacne. Ocular myasthenia. Vision improved. She is is on mestinon and IV Ig day 2 of 3 [place] neurochecks every 4 hours. Monitor respiratory status. Continue home medications. Continue medical management per primary team. PT/OT Plan discussed with the nursing staff.
[2020-01-17] MEDS: Rosuvastatin 10 MG TAB PO SCH (21:10)
[2020-01-17] MEDS ORDERED: OCTAGAM 10% 60 GM in Admixture Fee 1 EACH IVPB SCH (23:59)
[2020-01-18] MEDS: Levothyroxine Sodium 125 MCG TAB PO SCH (06:49)
[2020-01-18] MEDS: Acetaminophen 325 MG TAB PO PRN (06:50)
[2020-01-18] MEDS: Enoxaparin Sodium 40 MG/0.4 ML SYRINGE SC SCH (08:58)
[2020-01-18] MEDS: FLUoxetine HCl 20 MG CAP PO SCH (09:00)
[2020-01-18] MEDS: Ferrous Gluconate 324 MG TAB PO SCH (09:00)
[2020-01-18] MEDS: Pyridostigmine Bromide IR 60 MG TAB PO SCH (09:01)
[2020-01-18] MEDS: Ergocalciferol 1.25 MG(50,000 UNITS) CAP PO SCH (09:02)
--- NOTE | 2020-01-18 10:53 | DIS ---
DATE OF ADMISSION: 01/15/2020 DATE OF DISCHARGE: 01/17/2020 DISCHARGE DISPOSITION: Home. PRIMARY DISCHARGE DIAGNOSES: 1. Myasthenia gravis exacerbation. 2. Acute respiratory failure with hypoxia on arrival due to myasthenia, resolved. SECONDARY DISCHARGE DIAGNOSES: 1. Diabetes mellitus type 2. 2. Hypertension. 3. Hypothyroidism. PROCEDURES DONE DURING HOSPITALIZATION: The patient has had CT chest done on 01/15/2020, which showed no evidence of mediastinal mass, there is no acute process seen. Blood cultures x2, no growth. Urine culture, no growth. H and H 11 and 35, platelet count 360, MCV 74 with 80% neutrophils. BUN 8, creatinine 0.7, and albumin 4.4. COVID-19 PCR was not detected on 01/16/2020. DISCHARGE MEDICATIONS: 1. Crestor 10 mg p.o. daily. 2. Ferrous sulfate 324 mg p.o. daily. 3. Metformin 1000 mg p.o. daily. 4. Levothyroxine 125 mcg p.o. daily. 5. Fluoxetine 20 mg p.o. daily. 6. Trulicity 0.75 mg subcu once weekly. 7. Vitamin D2 of 50,000 units p.o. daily. 8. Mestinon 90 mg p.o. 3 times daily. 9. Prednisone 20 mg p.o. daily. ALLERGIES: NO KNOWN DRUG ALLERGIES. INPATIENT CONSULT: Dr. Gomez for Neurology. DISCHARGE PLAN: The patient to follow up with Dr. Slade on the ; primary care physician, Dr. Osmel Robles, in 1 week. The patient is advised to check her fingerstick glucose twice daily and record to follow up with primary care physician. BRIEF COURSE DURING HOSPITALIZATION: The patient initially came in with complaints of weakness, dizziness, and shortness of breath. The patient had difficulty breathing. She was recently diagnosed with ocular myasthenia gravis and was on Mestinon 60 mg twice daily. The patient has had significantly positive anticholinesterase antibodies detected. Ms. Gamez was initially placed in [facility] on BiPAP. She received IVIG for a total of 3 doses and was evaluated by Dr. Gomez. The patient has come off BiPAP after 24 hours and has been breathing comfortably. The patient has ptosis on the left eye. She also has mild dizziness. Ms. Gamez did mention that she has not had any significant improvement on 60 mg of Mestinon twice daily. I did discuss her findings with Dr. Slade, who was not seen her so far and the first appointment is on the . He has recommended her Mestinon to be increased to 90 mg 3 times daily and add prednisone 20 mg daily until he sees her. The patient has history of diabetes and has been counseled that her fingerstick glucose will go up and her diabetes will be uncontrolled due to steroids. She is advised to check twice daily and call primary care physician if her fingerstick glucose goes beyond 400. She is also advised to drink adequate fluids with no soda. She is otherwise hemodynamically stable, ambulating and eating well prior to discharge. Please note, I have seen and examined the patient on the day of discharge. Job ID: [id number]
[2020-01-18 11:32] VITALS: BP 125/76; TEMP 97.9
--- NOTE | 2020-01-18 13:49 | PDOC.NEUPN ---
- Subjective Encounter Date: 01/18/20 Subjective: Ms. Melendez did complain of some headache but there is somewhat improvement in the blurred vision. She has received 3 doses of IVIG. - Objective Vital Signs & Weight: Vital Signs (12 hours) Temp Pulse Resp BP BP BP Pulse Ox 01/18/20 11:31 97.9 F 90 20 125/76 01/18/20 08:52 136/80 131/91 H 122/86 01/18/20 08:07 98.2 F 76 20 124/72 97 01/18/20 04:56 98.5 F 75 18 112/76 96 01/18/20 02:30 76 18 118/74 93 L 01/18/20 02:00 76 16 120/74 97 Weight Weight 184 lb 6.4 oz Most Recent Monitor Data Heart Rate from ECG 87 NIBP 122/82 NIBP BP-Mean 95 Respiration from ECG 20 SpO2 98 I&O: 01/17/20 01/18/20 01/19/20 06:59 06:59 06:59 Intake Total 890 1090 Output Total 1100 Balance -210 1090 Result Diagrams: 01/16/20 03:29 01/16/20 03:29 Additional Labs: Accuchecks 01/18/20 01/18/20 01/17/20 06:47 00:22 19:18 POC Glucose 98 93 151 H Radiology Reviewed by me: Yes EKG Reviewed by me: Yes ROS - Review of Systems Constitutional: denies: fever, chills, sweats, weakness, malaise, other Eyes: reports: vision change. denies: pain, conjunctivae inflammation, eyelid inflammation, redness, other ENT: denies: ear pain, ear discharge, nose pain, nose discharge, nose congestion, mouth pain, mouth swelling, throat pain, throat swelling, other Respiratory: denies: cough, dry, shortness of breath, hemoptysis, SOB with exc ertion, pleuritic pain, sputum, wheezing, other Cardiovascular: denies: no pertinent history, AFIB, CAD, CHF, HTN, CT, Syncope, Hyperlipidemia, Mitral valve stenosis, Aortic stenosis, Valve insufficiency, Pulmonary hypertension, Other Genitourinary: denies: dysuria, frequency, incontinence, hematuria, retention, other Skin: denies: rash, lesions, yahaira, bruising, other Neurological: denies: weakness, numbness, incoordination, change in speech, confusion, seizures, other All Systems: All other systems reviewed; all pertinent +/- noted in HPI/Subj - Exam General Appearance: awake alert Eye: PERRL ENT: normocephalic atraumatic Neck: supple Respiratory: CTAB Cardiovascular: RRR Gastrointestinal: soft Extremities: no cyanosis Skin: normal turgor Neurological: no new deficit Musculoskeletal: normal tone, normal strength, no muscle wasting PSYCH: normal affect, normal behavior, A&O x 3, oriented to person, oriented to place, oriented to time Results - Labs Result Diagrams: 01/16/20 03:29 01/16/20 03:29 Lab results: WBC 7.1 thou/uL (4.8-10.8) 01/16/20 03:29 Hgb 10.9 g/dL (12.0-16.0) L 01/16/20 03:29 Hct 35.1 % (36.0-47.0) L 01/16/20 03:29 MCV 74.0 fL (78.0-98.0) L 01/16/20 03:29 Plt Count 360 thou/uL (130-400) 01/16/20 03:29 Neutrophils % 46.4 % (42.0-75.0) 01/15/20 18:59 Band Neuts % (Manual) 15 % (5-11) H 01/16/20 03:29 ABG pH 7.43 (7.35-7.45) 01/15/20 18:59 ABG pCO2 30.0 mmHg (35.0-45.0) L 01/15/20 18:59 ABG pO2 77.9 mmHg (80.0-100.0) L 01/15/20 18:59 Sodium 131 mmol/L (136-145) L 01/16/20 03:29 Potassium 4.3 mmol/L (3.5-5.1) 01/16/20 03:29 Chloride 100 mmol/L (98-107) 01/16/20 03:29 Carbon Dioxide 19 mmol/L (22-29) L 01/16/20 03:29 BUN 8 mg/dL (7.0-18.7) 01/16/20 03:29 Creatinine 0.70 mg/dL (0.6-1.1) 01/16/20 03:29 Glucose 160 mg/dL (70-105) H 01/16/20 03:29 Calcium 9.6 mg/dL (7.8-10.44) 01/16/20 03:29 Total Bilirubin 0.6 mg/dL (0.2-1.2) 01/16/20 03:29 AST 20 U/L (5-34) 01/16/20 03:29 ALT 23 U/L (8-55) 01/16/20 03:29 Alkaline Phosphatase 49 U/L (40-110) 01/16/20 03:29 Troponin I Less than 0.010 ng/mL (< 0.028) 01/15/20 18:59 Serum Total Protein 9.5 g/dL (6.0-8.3) H 01/16/20 03:29 Albumin 4.4 g/dL (3.5-5.0) 01/16/20 03:29 Urine Ketones Negative mg/dL (Negative) 01/15/20 19:35 Urine Blood Negative (Negative) 01/15/20 19:35 Urine Nitrite Negative (Negative) 01/15/20 19:35 Ur Leukocyte Esterase Negative Eliazar/uL (Negative) 01/15/20 19:35 - EKG Interpretation EKG: Normal sinus rhythm - Radiology Interpretation CT scan - chest Additional Comment: No acute process PN A/P (1) Myasthenia exacerbation Code(s): G70.01 - MYASTHENIA GRAVIS WITH (ACUTE) EXACERBATION Status: Acute (2) Diabetes Code(s): E11.9 - TYPE 2 DIABETES MELLITUS WITHOUT COMPLICATIONS Status: Chronic Qualifiers: Diabetes mellitus type: type 2 Diabetes mellitus penitentiary insulin use: without long term acute care registered nurse use (3) HTN (hypertension) Code(s): I10 - ESSENTIAL (PRIMARY) HYPERTENSION Status: Chronic Qualifiers: Hypertension type: essential hypertension Qualified Code(s): I10 - Essential (primary) hypertension (4) Hypothyroidism Code(s): E03.9 - HYPOTHYROIDISM, UNSPECIFIED Status: Chronic Qualifiers: Hypothyroidism type: acquired Qualified Code(s): E03.9 - Hypothyroidism, unspecified - Plan Daily Plan: plan discussed w/ family 49 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 She is a patient of Dr. Nance. Ocular myasthenia. Vision improved. She is is on mestinon and completed 3-day course of IVIG Continue home medications. Neurochecks every 4 hours Continue medical management per primary team. PT/OT Stable for discharge from neurology perspective. Patient should follow-up with outpatient neurology for management of myasthenia gravis. She has an appointment scheduled with Dr. Nance on January 31, 2020. Plan discussed with the nursing staff.
== END 2020-01-18 13:00 | disposition home or self-care (01) | DRG 56 ==
LOC: ERS 18:24 → IMCU/EMU 20:19 → 3SE 01-17 14:33
PROVIDERS: ADMIT Internal Medicine; ATTEND Internal Medicine
PROC: 5A09357 Assistance with Respiratory Ventilation, Less than 24 Consecutive Hours, Continuous Positive Airway Pressure (ICD-10-PCS; principal; 2020-01-15)
PROC: 30233S1 Transfusion of Nonautologous Globulin into Peripheral Vein, Percutaneous Approach (ICD-10-PCS; 2020-01-15)
DX: G70.01 Myasthenia gravis with (acute) exacerbation (principal); J96.01 Acute respiratory failure with hypoxia; Z20.828 Contact with and (suspected) exposure to other viral communicable diseases; E11.9 Type 2 diabetes mellitus without complications; I10 Essential (primary) hypertension; E03.9 Hypothyroidism, unspecified; Z79.899 Other long term (current) drug therapy; Z79.890 Hormone replacement therapy; Z79.84 Long term (current) use of oral hypoglycemic drugs
CPT/HCPCS: 36415; 36416; 36600; 51701; 71260; 80053; 81003; 82805; 83519; 83735; 84443; 84484; 85007; 85025; 85027; 87040; 87086; 87635; 93005; 94150; 94660; 96365; 96375; J0696; J1568; J1650; J2930; Q9967; U0003

== ENCOUNTER 2020-02-07 09:59 | Observation (INO) | payer BC ==
[2020-02-07] MEDS ORDERED: methylPREDNISolone Sod Succ/PF 125 MG/2 ML VIAL ONE (10:30)
--- NOTE | 2020-02-07 10:43 | RAD ---
CHEST 1 VIEW: Date: 02/07/2020 HISTORY: Dyspnea. COMPARISON: Chest CT 01/15/2020. FINDINGS: Heart size is within normal limits. Mild increased linear and interstitial markings bilaterally, nons pecific, possibly mild subsegmental atelectasis. No confluent pneumonia or pleural effusion. No cardi omegaly. IMPRESSION: Very mild increased linear and interstitial markings in the mid and lower lung zones, nonspecific, po ssibly mild subsegmental atelectasis. No evidence for other acute process. POS: RRE
[2020-02-07 11:01] LABS: #Basophils 0.1 thou/uL (0.0-0.2); #Eosinphils 0.2 thou/uL (0.0-0.7); #Lymphocytes 2.1 thou/uL (1.20-3.40); #Monocytes 0.5 thou/uL (0.11-0.59); %Basophils 1.7 % (0.0-1.0); %Eosinophils 2.7 % (0.0-10.0); %Lymphocytes 36.2 % (21.0-51.0); %Neutrophils 51.4 % (42.0-75.0); Hemoglobin 10.8 g/dL (12.0-16.0); Mean Corpuscular HGB CONC 31.2 g/dL (32.0-36.0); Mean Corpuscular Hemoglobin 25.5 pg (27.0-31.0); Mean Corpuscular Volume 81.8 fL (78.0-98.0); Mean Platelet Volume 7.5 fL (7.4-10.4); Platelet Count 358 thou/uL (130-400); RBC Distribution Width 20.1 % (11.5-14.5); Red Blood Cell (RBC) Count 4.24 mill/uL (4.20-5.40); White Blood Cell (WBC) Count 5.8 thou/uL (4.8-10.8)
[2020-02-07 11:32] LABS: ALT (SGPT) 56 U/L (8-55); AST (SGOT) 52 U/L (5-34); Albumin 4.1 g/dL (3.5-5.0); Alkaline Phosphatase 37 U/L (40-110); Anion Gap 14 mmol/L (10-20); BUN (Urea Nitrogen) 11 mg/dL (7.0-18.7); Bilirubin, Total 0.5 mg/dL (0.2-1.2); Calc. Creatinine Clearance 0 mL/min (70-130); Calcium 9.1 mg/dL (7.8-10.44); Carbon Dioxide 24 mmol/L (22-29); Chloride 103 mmol/L (98-107); Globulin 3.2 g/dL (2.4-3.5); Glucose 139 mg/dL (70-105); Potassium 3.8 mmol/L (3.5-5.1); Protein, Total 7.3 g/dL (6.0-8.3); Sodium 137 mmol/L (136-145)
--- NOTE | 2020-02-07 14:50 | HP ---
PRIMARY CARE PHYSICIAN: Osmel Robles MD PRIMARY NEUROLOGIST: Cristopher Slade MD CHIEF COMPLAINT: Shortness of breath. HISTORY OF PRESENT ILLNESS: This is a 49-year-old female who a little over a month ago started developing some intermittent double vision. The patient was eventually seen in the emergency room, diagnosed with ocular myasthenia gravis, started on medication, and scheduled to follow up with Dr. Slade. She presented back to the emergency room about a week later with respiratory difficulty. She was determined to be in myasthenia gravis flare. She was given 3 doses of IVIG and put on steroids. Her medications were adjusted. She was feeling better and so she was discharged home. She did follow up with Dr. Slade in the clinic. Due to persistence of recurrent symptoms, Dr. Slade did add Imuran. The patient started having some weakness and trouble moving the fingers of her right hand. She did call into the clinic. Dr. Slade was going to increase her dose of pyridostigmine. However, this was not done due to his office is going to ask him about the symptoms first before increasing the dose. The patient started to have a little bit of shortness of breath over the weekend and then today felt like it was starting to get worse again like when she first came in the hospital, though not nearly as bad as that this time. The patient did present to the emergency room. She had normal vital signs and normal oxygen saturation. She was given a dose of Solu-Medrol 125 mg and started to feel better after that. The patient thinks that she may be having some anxiety symptoms on top of her myasthenia gravis symptoms. She is being put in observation in the hospital to watch her until tomorrow. REVIEW OF SYSTEMS: CONSTITUTIONAL: No fevers. No chills. EYES: Intermittent blurred and double vision. ENT: She does have some runny nose and congestion, sometimes it seems worse when she has her shortness of breath. No sore throat. CARDIOVASCULAR: She occasionally has some chest pressure along with shortness of breath, but no chest pain. No palpitations or racing heart. PULMONARY: See HPI. No coughing or wheezing. GASTROINTESTINAL: No abdominal pain. No nausea or vomiting. No diarrhea or constipation. GENITOURINARY: No dysuria or hematuria. MUSCULOSKELETAL: No muscle aches or joint pain. SKIN: No rashes or other lesions she has noted. NEUROLOGIC: No numbness or tingling. She did have some focal weakness in the ulnar distribution of her fingers of her hand. This has improved now. No other focal symptoms. PAST MEDICAL HISTORY: 1. Myasthenia gravis ocular and respiratory. 2. Hypertension. 3. Hypothyroidism. 4. Diabetes mellitus type 2. PAST SURGICAL HISTORY: . FAMILY MEDICAL HISTORY: No pertinent family medical history. SOCIAL HISTORY: No tobacco or illicit drug use. She does drink alcohol daily. The patient is and accompanied by her in the emergency room. She is a full code. Should she be incapacitated, her would be her medical decision maker. His name is Julio Gamez. ALLERGIES: NO KNOWN DRUG ALLERGIES. CURRENT MEDICATIONS: 1. Levothyroxine 125 mcg daily. 2. Lisinopril 20 mg daily. 3. Metformin 1000 mg daily. 4. Invokana unknown dose daily. 5. Ergocalciferol 1250 mcg daily. 6. Trulicity 0.75 mg subcutaneous weekly. 7. Ferrous sulfate 325 mg daily. 8. Fluoxetine 20 mg daily. 9. Prednisone 20 mg daily. 10. Pyridostigmine 90 mg 3 times a day. I did discuss with Dr. Slade and he wanted to increase it to 120 mg. 11. Azathioprine 50 mg twice a day. PHYSICAL EXAMINATION: VITAL SIGNS: Blood pressure 106/64, pulse 78, respirations 24, temperature 97.8, O2 saturation 98% on room air. GENERAL: This is a well-developed, well-nourished female, in no acute distress. HEENT: Pupils are equal, round, and reactive to light. She does have a little bit of nystagmus. Oropharynx clear without lesions, erythema, or exudate. NECK: Supple. No lymphadenopathy. No thyroid nodules or enlargement. No JVD. HEART: Regular rate and rhythm. No murmurs, rubs, or gallops. LUNGS: Clear to auscultation bilaterally. No wheezes, crackles, or rhonchi. ABDOMEN: Soft, nontender to palpation. Normoactive bowel sounds. No hepatosplenomegaly or other masses. EXTREMITIES: No clubbing, cyanosis, or edema. SKIN: No rashes or other lesions noted. NEUROLOGIC: The patient moves all extremities equally. No facial droop. Deep tendon reflexes are 2+ in all extremities. She does have some mild disconjugate gaze occasionally. PSYCHIATRIC: Alert and oriented x3. Mildly anxious affect. LABORATORY DATA: CBC with a hemoglobin of 10.8, hematocrit 34.7, normal MCV. The rest of the CBC was normal. Complete metabolic panel is notable for glucose of 139, AST of 52, ALT of 56, and alkaline phosphatase of 37. The rest is normal. Troponin is negative x1. Brain natriuretic peptide was negative x1. I did try and get an ABG in the emergency room, but we were unable to obtain. Given the patient's stable clinical status, we will hold off on checking further. Chest x-ray, I did review the chest x-ray done in the emergency room along with the radiologist's report. It does show some very mild increased linear interstitial markings in the mid and lower lung aguilar, possibly atelectasis. No other significant findings. EKG shows normal sinus rhythm at 77 beats per minute. There were some flattened T-waves, but no other significant abnormalities. ASSESSMENT: 1. Shortness of breath, likely secondary to myasthenia gravis with some anxiety symptoms on top of that. The patient felt better immediately after steroids in the emergency room, which makes me suspect that a lot of this was anxiety in origin. We will observe for overnight. 2. Myasthenia gravis with possible exacerbation. I did discuss the case with Dr. Slade who will consult. He stated the patient did not seem to benefit much from the IVIG at the last hospitalization, so he did not need it to do that now. He did recommend increasing the pyridostigmine to 120 mg and continuing the steroids and her other medications. He did say that she might eventually need a thymectomy in [place] if she continues to be resistant to medical treatment. 3. Diabetes mellitus type 2. We will continue the patient's medications and do fingerstick blood sugars q.a.c. and at bedtime with sliding scale. 4. Hypertension. Resume the patient's home medications. 5. Hypothyroidism. Resume the patient's levothyroxine. 6. Gastrointestinal prophylaxis. The patient is on Pepcid twice a day. 7. Deep venous thrombosis prophylaxis. We will have the patient ambulating per her and SCDs while in bed. 8. Code status: The patient is a full code. Should she be incapacitated, her would be her medical decision maker. Job ID: [id number]
[2020-02-07] MEDS ORDERED: Guaifenesin DM 100-10/5 ML UDCUP PO PRN (20:35)
[2020-02-07] MEDS ORDERED: DULAGLUTIDE 0.75 MG/0.5 ML SC SCH (20:35)
[2020-02-07] MEDS ORDERED: Senokot S 8.6-50 MG TAB PO PRN (20:35)
[2020-02-07] MEDS ORDERED: Acetaminophen 650 MG Suppository PR PRN (20:35)
[2020-02-07] MEDS ORDERED: HumaLOG 300 UNITS/3 ML VIAL SC PRN ×2 (20:35)
[2020-02-07] MEDS ORDERED: Ondansetron PF 4 MG/2 ML Vial IVP PRN (20:35)
[2020-02-07] MEDS ORDERED: Dextrose 50% Abboject 50 ML SYRINGE SLOW IVP PRN (20:35)
[2020-02-07] MEDS ORDERED: Dextrose 5% in Water 1,000 ML IV PRN (20:35)
[2020-02-07] MEDS ORDERED: Ondansetron ODT 4 MG TAB PO PRN (20:35)
[2020-02-07] MEDS: azaTHIOprine 50 MG TAB PO SCH (22:26)
[2020-02-07] MEDS: Pyridostigmine Bromide IR 60 MG TAB PO SCH (22:26)
[2020-02-07] MEDS: Famotidine 20 MG TAB PO SCH (22:26)
[2020-02-07] MEDS: Acetaminophen 325 MG TAB PO PRN (22:31)
[2020-02-08 01:02] VITALS: BMI 31.8
[2020-02-08] MEDS ORDERED: Ibuprofen 200 MG TAB PO SCH (04:00)
[2020-02-08] MEDS: Levothyroxine Sodium 125 MCG TAB PO SCH (05:37)
[2020-02-08 06:34] LABS: #Basophils 0.1 thou/uL (0.0-0.2); #Lymphocytes 1.5 thou/uL (1.20-3.40); #Monocytes 0.6 thou/uL (0.11-0.59); #Neutrophils 6.7 thou/uL (1.40-6.50); %Basophils 0.6 % (0.0-1.0); %Eosinophils 0.3 % (0.0-10.0); %Lymphocytes 16.9 % (21.0-51.0); %Monocytes 7.3 % (0.0-10.0); %Neutrophils 74.9 % (42.0-75.0); Hemoglobin 10.6 g/dL (12.0-16.0); Mean Corpuscular HGB CONC 31.2 g/dL (32.0-36.0); Mean Corpuscular Hemoglobin 25.2 pg (27.0-31.0); Mean Corpuscular Volume 80.7 fL (78.0-98.0); Mean Platelet Volume 7.3 fL (7.4-10.4); Platelet Count 408 thou/uL (130-400); RBC Distribution Width 19.9 % (11.5-14.5); Red Blood Cell (RBC) Count 4.22 mill/uL (4.20-5.40); White Blood Cell (WBC) Count 8.9 thou/uL (4.8-10.8)
--- NOTE | 2020-02-08 06:44 | PDOC.HOSPP ---
- Objective Vital Signs & Weight: Vital Signs (12 hours) Temp Pulse Resp BP Pulse Ox 02/08/20 05:07 98.0 F 76 16 118/76 98 02/08/20 00:35 97.9 F 86 16 107/66 97 02/07/20 21:00 20 L 02/07/20 20:24 97.9 F 113 H 20 114/77 97 Weight Weight 180 lb 1 oz Result Diagrams: 02/08/20 06:16 02/07/20 10:42 Additional Labs: Accuchecks 02/08/20 02/07/20 05:11 20:27 POC Glucose 92 100 Hospitalist ROS - Medication Medications: Active Medications Generic Name Dose Route Start Last Admin Trade Name Freq PRN Reason Stop Dose Admin Acetaminophen 650 mg 02/07/20 20:35 02/07/20 22:31 Acetaminophen 325 Mg Tab PO 650 mg Q4H PRN Administration Headache/Fever/Mild Pain (1-3) Azathioprine 50 mg 02/07/20 21:00 02/07/20 22:26 Azathioprine 50 Mg Tab PO 50 mg BID LELO Administration Famotidine 20 mg 02/07/20 21:00 02/07/20 22:26 Famotidine 20 Mg Tab PO 20 mg BID LELO Administration Levothyroxine Sodium 125 mcg 02/08/20 06:00 02/08/20 05:37 Levothyroxine Sodium 125 Mcg Tab PO 125 mcg 0600 LELO Administration Pyridostigmine [place] 120 mg 02/07/20 21:00 02/07/20 22:26 Pyridostigmine [place] Ir 60 Mg Tab PO 120 mg TID LELO Administration
[2020-02-08 07:03] LABS: Anion Gap 17 mmol/L (10-20); BUN (Urea Nitrogen) 14 mg/dL (7.0-18.7); Calc. Creatinine Clearance 135 mL/min (70-130); Calcium 9.7 mg/dL (7.8-10.44); Carbon Dioxide 21 mmol/L (22-29); Chloride 101 mmol/L (98-107); Glucose 87 mg/dL (70-105); Potassium 4.1 mmol/L (3.5-5.1); Sodium 135 mmol/L (136-145)
--- NOTE | 2020-02-08 08:18 | PDOC.HOSPP ---
- Subjective Encounter Date: 02/08/20 Encounter Time: 08:16 Subjective: still seeing double at times - Objective Vital Signs & Weight: Vital Signs (12 hours) Temp Pulse Resp BP BP Pulse Ox 02/08/20 07:46 97.9 F 82 16 101/67 98 02/08/20 05:07 98.0 F 76 16 118/76 98 02/08/20 00:35 97.9 F 86 16 107/66 97 02/07/20 21:00 20 L 02/07/20 20:24 97.9 F 113 H 20 114/77 97 Weight Weight 180 lb 1 oz Result Diagrams: 02/08/20 06:16 02/08/20 06:16 Additional Labs: Accuchecks 02/08/20 02/07/20 05:11 20:27 POC Glucose 92 100 Hospitalist ROS - Medication Medications: Active Medications Generic Name Dose Route Start Last Admin Trade Name Freq PRN Reason Stop Dose Admin Acetaminophen 650 mg 02/07/20 20:35 02/07/20 22:31 Acetaminophen 325 Mg Tab PO 650 mg Q4H PRN Administration Headache/Fever/Mild Pain (1-3) Azathioprine 50 mg 02/07/20 21:00 02/07/20 22:26 Azathioprine 50 Mg Tab PO 50 mg BID LELO Administration Famotidine 20 mg 02/07/20 21:00 02/07/20 22:26 Famotidine 20 Mg Tab PO 20 mg BID LELO Administration Levothyroxine Sodium 125 mcg 02/08/20 06:00 02/08/20 05:37 Levothyroxine Sodium 125 Mcg Tab PO 125 mcg 0600 LELO Administration Pyridostigmine [place] 120 mg 02/07/20 21:00 02/07/20 22:26 Pyridostigmine [place] Ir 60 Mg Tab PO 120 mg TID LELO Administration - Exam General Appearance: awake alert Neck: no JVD Heart: RRR, no murmur Respiratory: CTAB Gastrointestinal: soft, non-distended, normal bowel sounds Extremities: no edema Neurological: cranial nerve grossly intact, no focal deficits Neurological - other findings: no diplopia on CN testing Hosp A/P (1) Myasthenia exacerbation Code(s): G70.01 - MYASTHENIA GRAVIS WITH (ACUTE) EXACERBATION Status: Acute (2) Diabetes Code(s): E11.9 - TYPE 2 DIABETES MELLITUS WITHOUT COMPLICATIONS Status: Chronic Qualifiers: Diabetes mellitus type: type 2 Diabetes mellitus assistant terminal manager insulin use: without fdc use Diabetes mellitus complication status: without complication Qualified Code(s): E11.9 - Type 2 diabetes mellitus without complications (3) HTN (hypertension) Code(s): I10 - ESSENTIAL (PRIMARY) HYPERTENSION Status: Chronic Qualifiers: Hypertension type: essential hypertension Qualified Code(s): I10 - Essential (primary) hypertension (4) Hypothyroidism Code(s): E03.9 - HYPOTHYROIDISM, UNSPECIFIED Status: Chronic Qualifiers: Hypothyroidism type: acquired Qualified Code(s): E03.9 - Hypothyroidism, unspecified - Plan cont increased dose physostigmine, prednisone discuss with Neurolgy
[2020-02-08] MEDS ORDERED: Ergocalciferol 1.25 MG(50,000 UNITS) CAP PO SCH (09:00)
[2020-02-08] MEDS ORDERED: Lisinopril 20 MG TAB PO SCH (09:00)
[2020-02-08] MEDS: FLUoxetine HCl 20 MG CAP PO SCH (10:32)
[2020-02-08] MEDS: Ferrous Gluconate 324 MG TAB PO SCH (10:32)
[2020-02-08] MEDS: Famotidine 20 MG TAB PO SCH ×2 (10:32→20:24)
[2020-02-08] MEDS: azaTHIOprine 50 MG TAB PO SCH ×2 (10:32→20:24)
[2020-02-08] MEDS: predniSONE 20 MG TAB PO SCH (10:32)
[2020-02-08] MEDS: Rosuvastatin 10 MG TAB PO SCH (10:32)
[2020-02-08] MEDS: metFORMIN 500 MG TAB PO SCH (10:32)
[2020-02-08] MEDS: Pyridostigmine Bromide IR 60 MG TAB PO SCH ×3 (10:33→20:22)
[2020-02-08 12:51] LABS: SARS-CoV-2 MS2 Positive; SARS-CoV-2 N Gene Negative; SARS-CoV-2 S Gene Negative; SARS-CoV-2 by NAA Not Detected (NotDetected); SARS-CoV-2 orf1ab Negative
[2020-02-08 15:54] LABS: Actual Bicarbonate (HCO3a) 18.3 mEq/L (22-28); Base Excess (BEa) -3.9 mEq/L (-2.0 to +3.0); Calcium, Ionized (arterial) 1.19 mmol/L (1.12-1.30); Carboxyhemoglobin (COHb) 0.7 gm% (0.0-3.0); Hemoglobin (Hb) 11.1 g/dL (12.0-16.0); O2 Tension (PaO2), arterial 88.9 mmHg (80.0-100.0); Potassium - ABG Lab 4.33 mmol/L (3.70-5.30); pH, Arterial 7.48 (7.35-7.45)
[2020-02-08 16:04] LABS: CO2 Tension 25.2 mmHg (35.0-45.0); Puncture Site RRA
--- NOTE | 2020-02-08 16:33 | PDOC.BPN ---
- Brief Progress Note Encounter Date: 02/08/20 Encounter Time: 16:31 called for sob. sats 99 RA. ABG CO2 decreased, pH increased, suspuct hyperventilation from anxiety. neurology to see today
[2020-02-08] MEDS: Lorazepam 0.5 MG TAB PO PRN (17:56)
--- NOTE | 2020-02-08 18:14 | CON ---
DATE OF CONSULTATION: 02/08/2020 IMPRESSION: Myasthenia gravis. PLAN: 1. Continue current medicines. 2. Have pulmonary do negative inspiratory flow measurements at the bedside. HISTORY OF PRESENT ILLNESS: Ms. Gamez was admitted due to complaints of increasing shortness of breath. She was given some Solu-Medrol in the emergency room. Her Mestinon has been increased to 120 mg three times a day. She had an increase in her prednisone just prior to admission to 20 mg per day. She has been on Imuran only for a short while. She reports some intermittent double vision. She also reports intermittent feelings that her hands are weak. She has been able to get up and go to the bathroom independently. She is able to chew and swallow without difficulty. She feels like she has to take a double breath to get enough air. PHYSICAL EXAMINATION: She was alert and cooperative. Her speech is fluent and clear. Cranial nerves appear to be intact without any facial weakness. She had good neck flexion. Strength, proximal strength was 4/5 in her deltoids, biceps and triceps. Agriculture Inspector strength seemed to be normal as well as finger abduction. SUMMARY: Overall, she seems to be doing relatively well. I would get some measurements on her pulmonary function to determine whether she may be actually hyperventilating as opposed to having diaphragmatic weakness. Continue her current regimen for now. Follow up with her. Job ID: [id number]
[2020-02-08] MEDS: Acetaminophen 325 MG TAB PO PRN (20:26)
[2020-02-09] MEDS: Lorazepam 0.5 MG TAB PO PRN (04:47)
[2020-02-09] MEDS: Levothyroxine Sodium 125 MCG TAB PO SCH (04:47)
[2020-02-09] MEDS ORDERED: Empagliflozin 25 MG TAB PO SCH (09:00)
[2020-02-09] MEDS ORDERED: Lisinopril 20 MG TAB PO SCH (09:00)
[2020-02-09] MEDS: Pyridostigmine Bromide IR 60 MG TAB PO SCH ×2 (09:36→15:12)
[2020-02-09] MEDS: Rosuvastatin 10 MG TAB PO SCH (09:36)
[2020-02-09] MEDS: Famotidine 20 MG TAB PO SCH (09:37)
[2020-02-09] MEDS: metFORMIN 500 MG TAB PO SCH (09:37)
[2020-02-09] MEDS: azaTHIOprine 50 MG TAB PO SCH (09:37)
[2020-02-09] MEDS: FLUoxetine HCl 20 MG CAP PO SCH (09:37)
[2020-02-09] MEDS: predniSONE 20 MG TAB PO SCH (09:37)
[2020-02-09] MEDS: Ferrous Gluconate 324 MG TAB PO SCH (09:37)
[2020-02-09 16:05] VITALS: BP 105/69; TEMP 98.6
--- NOTE | 2020-02-10 08:04 | PDOC.DS.DS ---
Provider - Provider Date of Admission: 02/07/20 12:28 Date of Discharge: 02/09/20 Admitting Provider: Owen Blankenship MD Consultations: Neurology Primary Care Physician: KINGSLEY PAULSON MD Course - Hospital Course Hospital Course: patient has a history of myasthenia gravis. She had a history of having an episode in the past in which she had significant shortness of breath associated with an exacerbation. On this occasion the patient started to feel like she was short of breath again and therefore came to the hospital. She was given an increased dose of physostigmine and steroids. She was subsequently seen by neurology in consultation. I was concerned that this may not truly be diaphragmatic dysfunction but more anxiety related. She had an ABG which revealed evidence of hyperventilation with normal oxygenation and low CO2. Res piratory therapy measured her NIF at 55-60. With that it was felt the patient likely was having some hyperventilation from anxiety rather than significant hypoxia related to exacerbation of myasthenia. Patient felt comfortable after this. She felt comfortable going home. her vital signs were stable and her exam was unremarkable. Resuscitation Status: 02/07/20 13:06 Resuscitation Status Routine Resuscitation Status: FULL: Full Resuscitation Discussed with: Patient - Labs Lab Results: 02/08/20 06:16 02/08/20 06:16 Abnormal Lab Results - Last 48 hrs 02/08/20 15:36: Bicarbonate Actual 18.3 L, ABG pH 7.48 H, ABG pCO2 25.2 L*, ABG O2 Content 15.2 L, ABG Base Excess -3.9 L, ABG Hematocrit 33.0 L, ABG Hemoglobin 11.1 L, A-a O2 Gradient 29.330 H - Physical Exam Vitals: Weight Weight 180 lb 1 oz Physical Exam: The patient was seen and examined on the day of discharge. Plan - Discharge Medications Home Medications: Medication Instructions Recorded Confirmed Type Dulaglutide [Trulicity] 0.75 mg SC Q7D 01/15/20 02/07/20 History Ergocalciferol (Vitamin D2) 50,000 unit PO DAILY 01/15/20 02/07/20 History [Vitamin D2] FLUoxetine HCl [Prozac] 20 mg PO DAILY 01/15/20 02/07/20 History Ferrous Gluconate [Fergon] 324 mg PO DAILY 01/15/20 02/07/20 History Levothyroxine Sodium 125 mcg PO DAILY 01/15/20 02/07/20 History Rosuvastatin [Crestor] 10 mg PO DAILY 01/15/20 02/07/20 History metFORMIN [Glucophage] 1,000 mg PO DAILY 01/15/20 02/07/20 History Pyridostigmine [place] [Mestinon] 90 mg PO TID #90 tab 01/18/20 02/07/20 Rx predniSONE 20 mg PO QAM-WM #15 tab 01/18/20 02/07/20 Rx Canagliflozin [Invokana] 300 mg PO DAILY 02/07/20 02/07/20 History Lisinopril 20 mg PO DAILY 02/07/20 02/07/20 History azaTHIOprine [Azathioprine] 50 mg PO BID 02/07/20 02/07/20 History Allergies: No Known Drug Allergies Allergy (Verified 02/07/20 20:55) per patient report - Discharge Instructions Activity:: Activity as Tolerated Nourishment:: No Restrictions - Follow up Plan Referrals: KINGSLEY PAULSON MD [Primary Care Provider] - Cristopher Slade MD [Active] - Disposition: HOME Quality - Care Measures CORE MEASURES:: N/A
--- NOTE | 2020-02-10 15:42 | PDOC.EVN ---
Event Note - Event Note Event Note: Patient had requested ativan rx until she could get to her PCP. BRIDGE OPENER Aware revealed no history on this patient and score was 0. Ativan 0.5 mg po tid prn anxiety, number 10 prescribed.
== END 2020-02-09 17:10 | disposition home or self-care (01) ==
LOC: ERS 09:59 → T4-A 12:28
PROVIDERS: ADMIT Emergency Medicine; ATTEND Internal Medicine
DX: R06.02 Shortness of breath (principal); F41.9 Anxiety disorder, unspecified; G70.01 Myasthenia gravis with (acute) exacerbation; I10 Essential (primary) hypertension; E03.9 Hypothyroidism, unspecified; E11.9 Type 2 diabetes mellitus without complications; Z79.52 Long term (current) use of systemic steroids; Z79.84 Long term (current) use of oral hypoglycemic drugs; Z79.899 Other long term (current) drug therapy; Z20.828 Contact with and (suspected) exposure to other viral communicable diseases
CPT/HCPCS: 36415; 36416; 36600; 71045; 80048; 80053; 82805; 83880; 84484; 85025; 87635; 93005; 96374; G0378; J2930; J7500; J7512; U0003

== ENCOUNTER 2020-02-18 12:17 | Inpatient (IN) | payer BC ==
[2020-02-18] MEDS ORDERED: methylPREDNISolone Sod Succ/PF 125 MG/2 ML VIAL ONE (12:44)
--- NOTE | 2020-02-18 13:36 | RAD ---
Chest one view HISTORY: Weakness. COMPARISON: 02/07/2020. FINDINGS: Cardiac silhouette is magnified by projection. Pulmonary vasculature is unremarkable. Mediastinum is midline. No confluent airspace consolidation or evidence of pneumothorax. IMPRESSION : No abnormalities are demonstrated.
[2020-02-18 13:57] LABS: #Basophils 0.1 thou/uL (0.0-0.2); #Eosinphils 0.1 thou/uL (0.0-0.7); #Lymphocytes 2.2 thou/uL (1.20-3.40); #Monocytes 0.5 thou/uL (0.11-0.59); #Neutrophils 3.2 thou/uL (1.40-6.50); %Basophils 1.5 % (0.0-1.0); %Eosinophils 1.7 % (0.0-10.0); %Lymphocytes 36.2 % (21.0-51.0); %Monocytes 8.1 % (0.0-10.0); %Neutrophils 52.5 % (42.0-75.0); Mean Corpuscular HGB CONC 30.9 g/dL (32.0-36.0); Mean Corpuscular Hemoglobin 25.8 pg (27.0-31.0); Mean Corpuscular Volume 83.6 fL (78.0-98.0); Mean Platelet Volume 7.1 fL (7.4-10.4); Platelet Count 354 thou/uL (130-400); RBC Distribution Width 19.5 % (11.5-14.5); Red Blood Cell (RBC) Count 4.27 mill/uL (4.20-5.40)
[2020-02-18 14:19] LABS: ALT (SGPT) 111 U/L (8-55); AST (SGOT) 64 U/L (5-34); Albumin 4.3 g/dL (3.5-5.0); Alkaline Phosphatase 34 U/L (40-110); Anion Gap 14 mmol/L (10-20); BUN (Urea Nitrogen) 8 mg/dL (7.0-18.7); Bilirubin, Total 0.5 mg/dL (0.2-1.2); CK (CPK) 33 U/L (29-168); Calc. Creatinine Clearance 0 mL/min (70-130); Carbon Dioxide 23 mmol/L (22-29); Chloride 104 mmol/L (98-107); Globulin 2.6 g/dL (2.4-3.5); Glucose 89 mg/dL (70-105); Potassium 4.2 mmol/L (3.5-5.1); Protein, Total 6.9 g/dL (6.0-8.3); Sodium 137 mmol/L (136-145)
[2020-02-18 14:29] LABS: Anisocytosis SLIGHT = 6-15 cells (100X) (0-5/hpf); Hypochromia SLIGHT = 6-15 cells (100X) (0-5/hpf); MDiff Complete? YES; Platelet Morphology Comment Appears Adequate; Polychromasia SLIGHT = 2-3 cells (100X) (0-2/hpf); Target Cells SLIGHT = 2-5 cells (100X) (0-1/hpf)
--- NOTE | 2020-02-18 15:48 | PDOC.HHP ---
Hospitalist HPI - History of Present Illness Generalized weakness History of Present Illness: Patient has history of myasthenia gravis diagnosed in December 2019, since then patient has so far two admission for generalized weakness, patient is experiencing shortness of breath and fatigue and weakness, in the emergency room patient was requiring a lot of assistance, she was however having diffuse motor weakness, chest x-ray was unremarkable, patient was also given Ativan half milligram and Solu-Medrol 125 mg, considering myasthenia gravis flareup patient is being admitted to hospital, patient does not have any fever or chills, no nausea vomiting diarrhea, no abdominal pain or constipation, no UTI symptoms, no headache or body ache, no focal deficit, patient denies any double vision, denies any salivation, she denies any cough, patient and her frustrated as patient is not able to do any activity at home, she is requiring a lot of assistance at home as well, patient was evaluated by neurologist on January 30 in their clinic and dose of pyridostigmine was increased to 60 mg 2 tablet 3 times daily, patient is taking all her medication as prescribed but she does not feel any significant improvement, ED Course: VITAL SIGNS Sat Feb 18, 2020 12:21 FELIBERTO Aldana Katelyn BP: 142/87, Pulse: 85, Resp: 16, Temp: 98.3 (Oral), O2 sat: 95, Time: 02/18/2020 12:21 Hospitalist ROS - Review of Systems Constitutional: reports: weakness. denies: fever, chills, sweats, malaise, other Eyes: denies: pain, vision change, conjunctivae inflammation, eyelid inflammation, redness, other ENT: denies: ear pain, ear discharge, nose pain, nose discharge, nose co ngestion, mouth pain, mouth swelling, throat pain, throat swelling, other Respiratory: denies: cough, dry, shortness of breath, hemoptysis, SOB with excertion, pleuritic pain, sputum, wheezing, other Cardiovascular: denies: chest pain, palpitations, orthopnea, paroxysmal noc. dyspnea, edema, light headedness, other Gastrointestinal: denies: nausea, vomiting, abdominal pain, diarrhea, constipation, melena, hematochezia, other Genitourinary: denies: dysuria, frequency, incontinence, hematuria, retention, other Musculoskeletal: denies: neck pain, shoulder pain, arm pain, back pain, hand pain, leg pain, foot pain, other Skin: denies: rash, lesions, yahaira, bruising, other Neurological: reports: weakness. denies: numbness, incoordination, change in speech, confusion, seizures, other - Medication Medications: Allergies No Known Drug Allergies Allergy (Verified 02/07/20 20:55) per patient report CODE STATUS full code Home medication Medication Instructions Recorded Confirmed Type Dulaglutide [Trulicity] 0.75 mg SC Q7D 01/15/20 02/07/20 History Ergocalciferol (Vitamin D2) 50,000 unit PO DAILY 01/15/20 02/07/20 History [Vitamin D2] FLUoxetine HCl [Prozac] 20 mg PO DAILY 01/15/20 02/07/20 History Ferrous Gluconate [Fergon] 324 mg PO DAILY 01/15/20 02/07/20 History Levothyroxine Sodium 125 mcg PO DAILY 01/15/20 02/07/20 History Rosuvastatin [Crestor] 10 mg PO DAILY 01/15/20 02/07/20 History metFORMIN [Glucophage] 1,000 mg PO DAILY 01/15/20 02/07/20 History Pyridostigmine [place] [Mestinon] 90 mg PO TID #90 tab 01/18/20 02/07/20 Rx predniSONE 20 mg PO QAM-WM #15 tab 01/18/20 02/07/20 Rx Canagliflozin [Invokana] 300 mg PO DAILY 02/07/20 02/07/20 History Lisinopril 20 mg PO DAILY 02/07/20 02/07/20 History azaTHIOprine [Azathioprine] 50 mg PO BID 02/07/20 02/07/20 History Lorazepam [Ativan] 0.5 mg PO TID PRN #10 tab 02/10/20 Rx Hospitalist History - Past Medical History Other Medical History: Myasthenia gravis Hypertension Hypothyroidism Diabetes type 2 - Past Surgical History Past Surgical History: reports: Other Surgical History: - Family History Other Family History: No strong family history of premature coronary artery disease stroke or cancer - Social History Alcohol: reports: Heavy Drugs: reports: none Other Social History: Patient is , no history of tobacco or other illicit drug abuse, she drinks alcohol daily - Exam General Appearance: NAD, awake alert Eye: PERRL, anicteric sclera ENT: normocephalic atraumatic, no oropharyngeal lesions Neck: supple, symmetric, no JVD, no thyromegaly Heart: RRR, no murmur, no gallops, no rubs, normal peripheral pulses Respiratory: CTAB, no wheezes, no rales, no ronchi, tachypneic Gastrointestinal: soft, non-tender, non-distended, normal bowel sounds Gastrointestinal - other findings: Obesity noted Extremities: no cyanosis, no clubbing, no edema Skin: normal turgor, no lesions Neurological: no focal deficits Musculoskeletal: normal tone, normal strength Psychiatric: normal affect, normal behavior Hospitalist Results - Labs Result Diagrams: 02/18/20 13:19 02/18/20 13:19 Lab results: WBC 6.0 thou/uL (4.8-10.8) 02/18/20 13:19 Hgb 11.0 g/dL (12.0-16.0) L 02/18/20 13:19 Hct 35.7 % (36.0-47.0) L 02/18/20 13:19 MCV 83.6 fL (78.0-98.0) 02/18/20 13:19 Plt Count 354 thou/uL (130-400) 02/18/20 13:19 Neutrophils % 52.5 % (42.0-75.0) 02/18/20 13:19 Sodium 137 mmol/L (136-145) 02/18/20 13:19 Potassium 4.2 mmol/L (3.5-5.1) 02/18/20 13:19 Chloride 104 mmol/L (98-107) 02/18/20 13:19 Carbon Dioxide 23 mmol/L (22-29) 02/18/20 13:19 BUN 8 mg/dL (7.0-18.7) 02/18/20 13:19 Creatinine 0.54 mg/dL (0.6-1.1) L 02/18/20 13:19 Glucose 89 mg/dL (70-105) 02/18/20 13:19 Calcium 9.0 mg/dL (7.8-10.44) 02/18/20 13:19 Total Bilirubin 0.5 mg/dL (0.2-1.2) 02/18/20 13:19 AST 64 U/L (5-34) H 02/18/20 13:19 ALT 111 U/L (8-55) H 02/18/20 13:19 Alkaline Phosphatase 34 U/L (40-110) L 02/18/20 13:19 Creatine Kinase 33 U/L (29-168) 02/18/20 13:19 Troponin I Less than 0.010 ng/mL (< 0.028) 02/18/20 13:19 Serum Total Protein 6.9 g/dL (6.0-8.3) 02/18/20 13:19 Albumin 4.3 g/dL (3.5-5.0) 02/18/20 13:19 - EKG Interpretation EKG: Normal sinus rhythm, rate 74. Normal axis and intervals. No ST or T wave changes. Normal tracing. - Radiology Interpretation Chest x-ray Status: image reviewed by me Additional Comment: FINDINGS: Cardiac silhouette is magnified by projection. Pulmonary vasculature is unremarkable. Mediastinum is midline. No confluent airspace consolidation or evidence of pneumothorax. Hospitalist H&P A/P - Problem (1) Myasthenia exacerbation Code(s): G70.01 - MYASTHENIA GRAVIS WITH (ACUTE) EXACERBATION Status: Acute (2) Diabetes Code(s): E11.9 - TYPE 2 DIABETES MELLITUS WITHOUT COMPLICATIONS Status: Chronic Qualifiers: Diabetes mellitus type: type 2 Diabetes mellitus shelter insulin use: without terminal operations supervisor use Diabetes mellitus complication status: without complication Qualified Code(s): E11.9 - Type 2 diabetes mellitus without complications (3) HTN (hypertension) Code(s): I10 - ESSENTIAL (PRIMARY) HYPERTENSION Status: Chronic Qualifiers: Hypertension type: essential hypertension Qualified Code(s): I10 - Essential (primary) hypertension (4) Hypothyroidism Code(s): E03.9 - HYPOTHYROIDISM, UNSPECIFIED Status: Chronic Qualifiers: Hypothyroidism type: acquired Qualified Code(s): E03.9 - Hypothyroidism, unspecified - Plan Plan: Admission to medical We will ask respiratory to monitor vital capacity and negative inspiratory pressure Solu-Medrol 40 mg IV every 6 hourly Neurology consultation Will continue pyridostigmine 120 mg mg 3 times daily and azathioprine 50 mg twice daily IVIG will defer to neurology, other immunosuppressive therapy will defer to ne urology Her home medication will be reconciled Diabetic diet and insulin as per sliding scale PT OT evaluation Myasthenia gravis myasthenia gravis DVT prophylaxis Lovenox 40 mg subcu daily GI prophylaxis Protonix 40 mg p.o. daily CODE STATUS patient is full code
[2020-02-18] MEDS ORDERED: Lorazepam 2 MG/ML VIAL ONE (16:01)
[2020-02-18] MEDS ORDERED: Dextrose 5% in Water 1,000 ML IV PRN (16:30)
[2020-02-18] MEDS ORDERED: Cepastat Lozenges 1 LOZ PO PRN (16:30)
[2020-02-18] MEDS ORDERED: Benzonatate 100 MG CAP PO PRN (16:30)
[2020-02-18] MEDS ORDERED: hydrALAZINE 20 MG/ML VIAL SLOW IVP PRN (16:30)
[2020-02-18] MEDS ORDERED: Loratadine 10 MG TAB PO PRN (16:30)
[2020-02-18] MEDS ORDERED: Ondansetron ODT 4 MG TAB PO PRN (16:30)
[2020-02-18] MEDS ORDERED: Diabetic Tussin 200 MG/10 ML UDCUP PO PRN (16:30)
[2020-02-18] MEDS ORDERED: Loperamide HCl 2 MG CAP PO PRN (16:30)
[2020-02-18] MEDS ORDERED: Sodium Chloride 0.65% Nasal 44 ML BOT EA NARE PRN (16:30)
[2020-02-18] MEDS ORDERED: Guaifenesin DM 100-10/5 ML UDCUP PO PRN (16:30)
[2020-02-18] MEDS ORDERED: Bisacodyl 10 MG SUPP PR PRN (16:30)
[2020-02-18] MEDS ORDERED: Zolpidem Tartrate 5 MG TAB PO PRN (16:30)
[2020-02-18] MEDS ORDERED: Dextrose 50% Abboject 50 ML SYRINGE SLOW IVP PRN (16:30)
[2020-02-18] MEDS ORDERED: HYDROcodone/Acetaminophen 5/325 mg Tablet PO PRN (16:30)
[2020-02-18] MEDS ORDERED: Calcium Carbonate 500 MG ChewTAB PO PRN (16:30)
[2020-02-18] MEDS ORDERED: Ondansetron PF 4 MG/2 ML Vial IVP PRN (16:30)
[2020-02-18] MEDS ORDERED: Senokot S 8.6-50 MG TAB PO PRN (16:30)
[2020-02-18] MEDS ORDERED: HumaLOG 300 UNITS/3 ML VIAL SC PRN ×2 (16:30)
[2020-02-18] MEDS: azaTHIOprine 50 MG TAB PO SCH (23:17)
[2020-02-18] MEDS: Rosuvastatin 10 MG TAB PO SCH (23:17)
[2020-02-18] MEDS: Pyridostigmine Bromide IR 60 MG TAB PO SCH (23:17)
[2020-02-19 02:00] LABS: SARS-CoV-2 MS2 Positive; SARS-CoV-2 N Gene Negative; SARS-CoV-2 S Gene Negative; SARS-CoV-2 by NAA Not Detected (NotDetected); SARS-CoV-2 orf1ab Negative
[2020-02-19] MEDS: Levothyroxine Sodium 125 MCG TAB PO SCH (06:20)
[2020-02-19 07:20] LABS: ALT (SGPT) 126 U/L (8-55); AST (SGOT) 64 U/L (5-34); Albumin 4.6 g/dL (3.5-5.0); Alkaline Phosphatase 38 U/L (40-110); Anion Gap 17 mmol/L (10-20); BUN (Urea Nitrogen) 13 mg/dL (7.0-18.7); Bilirubin, Total 0.6 mg/dL (0.2-1.2); CK (CPK) 31 U/L (29-168); CRP (Inflammatory) 0.75 mg/dL (= or < 0.5); Calc. Creatinine Clearance 0 mL/min (70-130); Carbon Dioxide 20 mmol/L (22-29); Chloride 101 mmol/L (98-107); Globulin 3.3 g/dL (2.4-3.5); Glucose 85 mg/dL (70-105); Magnesium 2.2 mg/dL (1.6-2.6); Phosphorus 4.8 mg/dL (2.3-4.7); Potassium 4.2 mmol/L (3.5-5.1); Protein, Total 7.9 g/dL (6.0-8.3); Sodium 134 mmol/L (136-145)
[2020-02-19 09:18] LABS: #Basophils 0.1 thou/uL (0.0-0.2); #Lymphocytes 1.7 thou/uL (1.20-3.40); #Monocytes 0.6 thou/uL (0.11-0.59); #Neutrophils 6.6 thou/uL (1.40-6.50); %Basophils 1.1 % (0.0-1.0); %Eosinophils 0.2 % (0.0-10.0); %Lymphocytes 18.3 % (21.0-51.0); %Monocytes 6.9 % (0.0-10.0); %Neutrophils 73.6 % (42.0-75.0); Anisocytosis SLIGHT = 6-15 cells (100X) (0-5/hpf); Hemoglobin 11.5 g/dL (12.0-16.0); Hypochromia SLIGHT = 6-15 cells (100X) (0-5/hpf); MDiff Complete? YES; Mean Corpuscular HGB CONC 30.3 g/dL (32.0-36.0); Mean Corpuscular Hemoglobin 24.9 pg (27.0-31.0); Mean Corpuscular Volume 82.1 fL (78.0-98.0); Mean Platelet Volume 7.3 fL (7.4-10.4); Platelet Count 420 thou/uL (130-400); Platelet Morphology Comment Appears Increased; Polychromasia SLIGHT = 2-3 cells (100X) (0-2/hpf); RBC Distribution Width 19.5 % (11.5-14.5); Red Blood Cell (RBC) Count 4.63 mill/uL (4.20-5.40)
[2020-02-19 09:22] VITALS: BMI 31.5
--- NOTE | 2020-02-19 10:58 | PDOC.HOSPP ---
- Subjective Encounter Date: 02/19/20 Encounter Time: 10:15 Subjective: Patient seen and examined bedside today, patient is feeling relatively better than yesterday, patient gets drooping of eyelid with prolonged staring, she also gets muscle weakness on exertion - Objective Vital Signs & Weight: Vital Signs (12 hours) Temp Pulse Resp BP BP Pulse Ox 02/19/20 10:05 98.5 F 100 16 110/69 96 02/19/20 09:30 98.4 F 99 18 103/73 96 Weight Weight 178 lb Result Diagrams: 02/19/20 06:38 02/19/20 06:38 Additional Labs: Accuchecks 02/18/20 22:20 POC Glucose 177 H EKG Reviewed by me: Yes (Sinus rhythm) Hospitalist ROS - Review of Systems Constitutional: reports: weakness. denies: fever, chills, sweats, malaise, other ENT: denies: ear pain, ear discharge, nose pain, nose discharge, nose congestion, mouth pain, mouth swelling, throat pain, throat swelling, other Respiratory: reports: SOB with excertion. denies: cough, dry, shortness of breath, hemoptysis, pleuritic pain, sputum, wheezing, other Cardiovascular: denies: chest pain, palpitations, orthopnea, paroxysmal noc. dyspnea, edema, light headedness, other Gastrointestinal: denies: nausea, vomiting, abdominal pain, diarrhea, constipation, melena, hematochezia, other Genitourinary: denies: dysuria, frequency, incontinence, hematuria, retention, other Musculoskeletal: denies: neck pain, shoulder pain, arm pain, back pain, hand pain, leg pain, foot pain, other Skin: denies: rash, lesions, yahaira, bruising, other Neurological: denies: weakness, numbness, incoordination, change in speech, confusion, seizures, other - Medication Medications: Active Medications Generic Name Dose Route Start Last Admin Trade Name Freq PRN Reason Stop Dose Admin Azathioprine 50 mg 02/18/20 21:00 02/18/20 23:17 Azathioprine 50 Mg Tab PO 50 mg BID LELO Administration Levothyroxine Sodium 125 mcg 02/19/20 06:00 02/19/20 06:20 Levothyroxine Sodium 125 Mcg Tab PO 125 mcg 0600 LELO Administration Pyridostigmine [place] 120 mg 02/18/20 21:00 02/18/20 23:17 Pyridostigmine [place] Ir 60 Mg Tab PO 120 mg TID LELO Administration Rosuvastatin Calcium 10 mg 02/18/20 21:00 02/18/20 23:17 Rosuvastatin 10 Mg Tab PO Not Given HS LELO - Exam General Appearance: NAD, awake alert Eye: PERRL, anicteric sclera ENT: normocephalic atraumatic, no oropharyngeal lesions Neck: supple, symmetric, no JVD, no thyromegaly Heart: RRR, no murmur, no gallops, no rubs Respiratory: no wheezes, no rales, no ronchi Gastrointestinal: soft, non-tender, non-distended, normal bowel sounds Extremities: no cyanosis, no clubbing, no edema Skin: normal turgor, no lesions Neurological: no focal deficits Musculoskeletal: normal tone, normal strength, no muscle wasting Psychiatric: normal affect, normal behavior, A&O x 3 Hosp A/P (1) Myasthenia exacerbation Code(s): G70.01 - MYASTHENIA GRAVIS WITH (ACUTE) EXACERBATION Status: Acute (2) Diabetes Code(s): E11.9 - TYPE 2 DIABETES MELLITUS WITHOUT COMPLICATIONS Status: Chronic Qualifiers: Diabetes mellitus type: type 2 Diabetes mellitus terminal manager insulin use: without shelter use Diabetes mellitus complication status: without complication Qualified Code(s): E11.9 - Type 2 diabetes mellitus without complications (3) HTN (hypertension) Code(s): I10 - ESSENTIAL (PRIMARY) HYPERTENSION Status: Chronic Qualifiers: Hypertension type: essential hypertension Qualified Code(s): I10 - Essential (primary) hypertension (4) Hypothyroidism Code(s): E03.9 - HYPOTHYROIDISM, UNSPECIFIED Status: Chronic Qualifiers: Hypothyroidism type: acquired Qualified Code(s): E03.9 - Hypothyroidism, unspecified - Plan old records reviewed/req, DVT proph w/lovenox Since her diagnosis of myasthenia gravis in December patient's has a third recurrent admission for a flareup, as per patient Immohit is not working, is off of Mestinon therapy at this point, we have started Solu-Medrol 40 mg IV every 6 hourly, neurology has been consulted, neurology to decide to change to alternative therapy for better control of myasthenia gravis, will continue to monitor while in hospital, Her home medication will be reconciled.
[2020-02-19] MEDS: metFORMIN 500 MG TAB PO SCH (11:13)
[2020-02-19] MEDS: Lisinopril 20 MG TAB PO SCH (11:14)
[2020-02-19] MEDS: Ferrous Gluconate 324 MG TAB PO SCH (11:14)
[2020-02-19] MEDS: FLUoxetine HCl 20 MG CAP PO SCH (11:15)
[2020-02-19] MEDS: Enoxaparin Sodium 40 MG/0.4 ML SYRINGE SC SCH (11:15)
[2020-02-19] MEDS: azaTHIOprine 50 MG TAB PO SCH ×2 (11:15→19:56)
--- NOTE | 2020-02-19 13:35 | CON ---
NEUROLOGY CONSULTATION DATE OF CONSULTATION: 02/19/2020 REASON FOR CONSULTATION: Generalized weakness. HISTORY OF PRESENT ILLNESS: Ms. Gamez is a 49-year-old female with a history significant for myasthenia gravis diagnosed in December 2019, presented with generalized weakness. Per the patient, she has been experienced shortness of breath, fatigue, and weakness, requiring a lot of assistance. She was admitted for further management. Chest x-ray was unremarkable. She was given Ativan for anxiety and Solu-Medrol, and admitted for further evaluation. The patient denies any focal deficits, double vision, loss of vision, problems with salivation, cough. This is her 3rd admission since she has been diagnosed with a neurologist and is currently taking Mestinon 60 mg 2 tablets 3 times a day and does not feel there is any significant improvement. In the emergency room, blood pressure was 142/87, pulse 85, respiratory rate 16. REVIEW OF SYSTEMS: All systems reviewed and were negative except the pertinent positives and negatives mentioned in the HPI. ALLERGIES: NO KNOWN DRUG ALLERGIES. HOME MEDICATIONS: 1. Trulicity. 2. Vitamin D2. 3. Prozac. 4. Fergon. 5. Crestor. 6. Glucophage. 7. Prednisone. 8. Invokana. 9. Azathioprine. 10. Ativan. PAST MEDICAL HISTORY: Myasthenia gravis, hypertension, hypothyroidism, diabetes mellitus type 2. PAST SURGICAL HISTORY: section. FAMILY HISTORY: No strong family history of cancer or myasthenia gravis. SOCIAL HISTORY: The patient is a heavy smoker and drinker. She is . Denies illegal drug abuse. She drinks alcohol daily. Vital Signs & Weight: Vital Signs (12 hours) Temp Pulse Resp BP BP Pulse Ox 02/19/20 10:05 98.5 F 100 16 110/69 96 02/19/20 09:30 98.4 F 99 18 103/73 96 Weight Weight 178 lb Additional Labs: Accuchecks 02/18/20 22:20 POC Glucose 177 H EKG Reviewed by me: Yes (Sinus rhythm) Active Medications Generic Name Dose Route Start Last Admin Trade Name Freq PRN Reason Stop Dose Admin Azathioprine 50 mg 02/18/20 21:00 02/18/20 23:17 Azathioprine 50 Mg Tab PO 50 mg BID LELO Administration Levothyroxine Sodium 125 mcg 02/19/20 06:00 02/19/20 06:20 Levothyroxine Sodium 125 Mcg Tab PO 125 mcg 0600 [facility] Administration Pyridostigmine [place] 120 mg 02/18/20 21:00 02/18/20 23:17 Pyridostigmine [place] Ir 60 Mg Tab PO 120 mg TID LELO Administration Rosuvastatin Calcium 10 mg 02/18/20 21:00 02/18/20 23:17 Rosuvastatin 10 Mg Tab PO Not Given HS [facility] PHYSICAL EXAMINATION: General Appearance: NAD, awake alert Eye: PERRL, anicteric sclera ENT: normocephalic atraumatic, no oropharyngeal lesions Neck: supple, symmetric, no JVD, no thyromegaly Heart: RRR, no murmur, no gallops, no rubs, normal peripheral pulses Respiratory: CTAB, no wheezes, no rales, no ronchi, tachypneic Gastrointestinal: soft, non-tender, non-distended, normal bowel sounds Gastrointestinal - other findings: Obesity noted Extremities: no cyanosis, no clubbing, no edema Skin: normal turgor, no lesions Neurological:Mental status; the patient is alert and oriented to person, place, and time. Recent and remote memory, intact. Speech is clear. Motor; muscle tone and bulk are normal. Moving all 4 extremities equally and symmetrically. Strength 4/5bilaterally. Cerebellar, finger-nose testing intact. Gait deferred due to the patient's safety reason. Cranial nerves 2 through 12 intact. DIAGNOSTIC STUDIES: Data reviewed. I reviewed the labs, which were significant for anemia with hemoglobin of 11 and hematocrit of 35.7. EKG showed normal sinus rhythm. Chest x-ray did not reveal any cardiopulmonary process. Lab results: WBC 6.0 thou/uL (4.8-10.8) 02/18/20 13:19 Hgb 11.0 g/dL (12.0-16.0) L 02/18/20 13:19 Hct 35.7 % (36.0-47.0) L 02/18/20 13:19 MCV 83.6 fL (78.0-98.0) 02/18/20 13:19 Plt Count 354 thou/uL (130-400) 02/18/20 13:19 Neutrophils % 52.5 % (42.0-75.0) 02/18/20 13:19 Sodium 137 mmol/L (136-145) 02/18/20 13:19 Potassium 4.2 mmol/L (3.5-5.1) 02/18/20 13:19 Chloride 104 mmol/L (98-107) 02/18/20 13:19 Carbon Dioxide 23 mmol/L (22-29) 02/18/20 13:19 BUN 8 mg/dL (7.0-18.7) 02/18/20 13:19 Creatinine 0.54 mg/dL (0.6-1.1) L 02/18/20 13:19 Glucose 89 mg/dL (70-105) 02/18/20 13:19 Calcium 9.0 mg/dL (7.8-10.44) 02/18/20 13:19 Total Bilirubin 0.5 mg/dL (0.2-1.2) 02/18/20 13:19 AST 64 U/L (5-34) H 02/18/20 13:19 ALT 111 U/L (8-55) H 02/18/20 13:19 Alkaline Phosphatase 34 U/L (40-110) L 02/18/20 13:19 Creatine Kinase 33 U/L (29-168) 02/18/20 13:19 Troponin I Less than 0.010 ng/mL (< 0.028) 02/18/20 13:19 Serum Total Protein 6.9 g/dL (6.0-8.3) 02/18/20 13:19 Albumin 4.3 g/dL (3.5-5.0) 02/18/20 13:19 EKG: Normal sinus rhythm, rate 74. Normal axis and intervals. No ST or T wave changes. Normal tracing. - Radiology Interpretation Chest x-ray Status: image reviewed by me Additional Comment: FINDINGS: Cardiac silhouette is magnified by projection. Pulmonary vasculature is unremarkable. Mediastinum is midline. No confluent airspace consolidation or evidence of pneumothorax. ASSESSMENT AND PLAN: (1) Myasthenia exacerbation Code(s): G70.01 - MYASTHENIA GRAVIS WITH (ACUTE) EXACERBATION Status: Acute (2) Diabetes Code(s): E11.9 - TYPE 2 DIABETES MELLITUS WITHOUT COMPLICATIONS Status: Chronic Qualifiers: Diabetes mellitus type: type 2 Diabetes mellitus exterminator termite insulin use: without exterminator termite use Diabetes mellitus complication status: without complication Qualified Code(s): E11.9 - Type 2 diabetes mellitus without complications (3) HTN (hypertension) Code(s): I10 - ESSENTIAL (PRIMARY) HYPERTENSION Status: Chronic Qualifiers: Hypertension type: essential hypertension Qualified Code(s): I10 - Essential (primary) hypertension (4) Hypothyroidism Code(s): E03.9 - HYPOTHYROIDISM, UNSPECIFIED Status: Chronic Qualifiers: Hypothyroidism type: acquired Qualified Code(s): E03.9 - Hypothyroidism, unspecified Ms. Arlene Gamez is a 49-year-old female with a newly-diagnosed myasthenia gravis, presented with myasthenia gravis exacerbation. Consider IVIG 0.4 g/kg x3 doses. Continue Solu-Medrol IV and also continue home dose of pyridostigmine and azathioprine at this time. The decision to change to a different immunosuppressive agent should be done by the primary neurologist once the patient is stable. Neuro checks every 4 hours. Close monitoring of respiratory function including vital capacity and negative inspiratory pressure. PT/OT/speech. Continue medical management per Primary Team. DVT prophylaxis . Plan discussed in detail with the patient, at bedside and also communicated with the primary attending Dr. Kaufman. We will continue to follow. Thank you for the consult. Job ID: [id number] [facility]
[2020-02-19] MEDS: Pyridostigmine Bromide IR 60 MG TAB PO SCH ×3 (14:31→19:56)
[2020-02-19] MEDS: Empagliflozin 25 MG TAB PO SCH (14:31)
[2020-02-19] MEDS: OCTAGAM 10% 60 GM, OCTAGAM 10% 5 GM in Admixture Fee 1 EACH IVPB SCH (16:11)
[2020-02-19] MEDS: Acetaminophen 325 MG TAB PO PRN (17:10)
[2020-02-19] MEDS: Lorazepam 0.5 MG TAB PO PRN (19:56)
[2020-02-19] MEDS: Rosuvastatin 10 MG TAB PO SCH (19:56)
[2020-02-20] MEDS: Levothyroxine Sodium 125 MCG TAB PO SCH (05:35)
[2020-02-20] MEDS: Enoxaparin Sodium 40 MG/0.4 ML SYRINGE SC SCH (09:48)
[2020-02-20] MEDS: metFORMIN 500 MG TAB PO SCH (09:49)
[2020-02-20] MEDS: Lisinopril 20 MG TAB PO SCH (09:49)
[2020-02-20] MEDS: FLUoxetine HCl 20 MG CAP PO SCH (09:49)
[2020-02-20] MEDS: Ferrous Gluconate 324 MG TAB PO SCH (09:49)
[2020-02-20] MEDS: azaTHIOprine 50 MG TAB PO SCH ×2 (09:49→20:03)
[2020-02-20] MEDS: Empagliflozin 25 MG TAB PO SCH (09:50)
[2020-02-20] MEDS: Pyridostigmine Bromide IR 60 MG TAB PO SCH ×3 (09:50→20:02)
[2020-02-20] MEDS: Acetaminophen 325 MG TAB PO PRN ×2 (09:52→19:20)
--- NOTE | 2020-02-20 12:21 | PDOC.HOSPP ---
- Subjective Encounter Date: 02/20/20 Subjective: she reports dizziness and headache, she is having difficulty with ambulation but improved since admission. had a lot of questions. - Objective Vital Signs & Weight: Vital Signs (12 hours) Temp Pulse Pulse Pulse Pulse Resp BP 02/20/20 11:12 97.7 F 114 H 18 02/20/20 09:16 94 159 H 106 H 110/74 02/20/20 07:35 98.1 F 80 16 02/20/20 03:38 98.2 F 81 18 BP BP Pulse Ox 02/20/20 11:12 105/70 96 02/20/20 09:16 119/73 02/20/20 07:35 103/70 96 02/20/20 03:38 117/57 L 97 Weight Weight 174 lb 6.4 oz I&O: 02/19/20 02/20/20 02/21/20 06:59 06:59 06:59 Intake Total 720 Balance 720 Result Diagrams: 02/19/20 06:38 02/19/20 06:38 Additional Labs: Accuchecks 02/20/20 02/20/20 02/20/20 10:26 05:18 04:36 POC Glucose 131 H 96 87 02/19/20 02/19/20 20:28 16:41 POC Glucose 163 H 137 H Hospitalist ROS - Medication Medications: Active Medications Generic Name Dose Route Start Last Admin Trade Name Freq PRN Reason Stop Dose Admin Acetaminophen 650 mg 02/18/20 16:30 02/20/20 09:52 Acetaminophen 325 Mg Tab PO 650 mg Q4H PRN Administration Headache/Fever/Mild Pain (1-3) Azathioprine 50 mg 02/18/20 21:00 02/20/20 09:49 Azathioprine 50 Mg Tab PO 50 mg BID LELO Administration Enoxaparin Sodium 40 mg 02/19/20 09:00 02/20/20 09:48 Enoxaparin Sodium 40 Mg/0.4 Ml Syringe SC 40 mg 0900 LELO Administration Ferrous Gluconate 324 mg 02/19/20 09:00 02/20/20 09:49 Ferrous Gluconate 324 Mg Tab PO 324 mg DAILY LELO Administration Fluoxetine HCl 20 mg 02/19/20 09:00 02/20/20 09:49 Fluoxetine Hcl 20 Mg Cap PO 20 mg DAILY LELO Administration Immune Globulin 60 gm/ Immune 650 mls @ 0 mls/hr 02/19/20 15:00 02/19/20 16 :11 Globulin 5 gm/ Miscellaneous IVPB 02/21/20 15:01 650 mls Medication 1500 LELO Administration As Directed Levothyroxine Sodium 125 mcg 02/19/20 06:00 02/20/20 05:35 Levothyroxine Sodium 125 Mcg Tab PO 125 mcg 0600 [facility] Administration Lisinopril 20 mg 02/19/20 09:00 02/20/20 09:49 Lisinopril 20 Mg Tab PO 20 mg DAILY LELO Administration Lorazepam 0.5 mg 02/18/20 16:30 02/19/20 19:56 Lorazepam 0.5 Mg Tab PO 0.5 mg TIDPRN PRN Administration Anxiety Metformin HCl 1,000 mg 02/19/20 09:00 02/20/20 09:49 Metformin 500 Mg Tab PO 1,000 mg DAILY LELO Administration Miscellaneous Medication 25 mg 02/19/20 09:00 02/20/20 09:50 Empagliflozin 25 Mg Tab PO 25 mg DAILY LELO Administration Pantoprazole Sodium 40 mg 02/19/20 09:00 02/20/20 09:50 Pantoprazole 40 Mg Tab PO 40 mg DAILY LELO Administration Pyridostigmine [place] 120 mg 02/18/20 21:00 02/20/20 09:50 Pyridostigmine [place] Ir 60 Mg Tab PO 120 mg TID LELO Administration Rosuvastatin Calcium 10 mg 02/18/20 21:00 02/19/20 19:56 Rosuvastatin 10 Mg Tab PO 10 mg HS LELO Administration - Exam General Appearance: awake alert Eye: PERRL ENT: normocephalic atraumatic Neck: supple, symmetric Heart: RRR, no murmur Respiratory: CTAB, no wheezes Gastrointestinal: soft, non-tender Extremities: no cyanosis, no clubbing Hosp A/P (1) Myasthenia exacerbation Code(s): G70.01 - MYASTHENIA GRAVIS WITH (ACUTE) EXACERBATION Status: Acute (2) Diabetes Code(s): E11.9 - TYPE 2 DIABETES MELLITUS WITHOUT COMPLICATIONS Status: Chronic Qualifiers: Diabetes mellitus type: type 2 Diabetes mellitus termite helper insulin use: without termite helper use Diabetes mellitus complication status: without complication Qualified Code(s): E11.9 - Type 2 diabetes mellitus without complications (3) HTN (hypertension) Code(s): I10 - ESSENTIAL (PRIMARY) HYPERTENSION Status: Chronic Qualifiers: Hypertension type: essential hypertension Qualified Code(s): I10 - Essential (primary) hypertension (4) Hypothyroidism Code(s): E03.9 - HYPOTHYROIDISM, UNSPECIFIED Status: Chronic Qualifiers: Hypothyroidism type: acquired Qualified Code(s): E03.9 - Hypothyroidism, unspecified (5) Tachycardia Code(s): R00.0 - TACHYCARDIA, UNSPECIFIED Status: Acute - Plan Patient improved since admission, but still is frustrated that her improvement is only short term and she is relapsing frequently. I spoke with Neuro, seems that they voiced dissatisfaction with the care that she is getting, from our stand point, She is on IVIG and the effect will show in a week or so , will continue with current management. I texted her outpatient Neuro Dr Slade awaiting his call back, the goal is to coordinate further for a correction paln. she is having episodes of tachycardia with activity, will consult Cardiology for further input.
--- NOTE | 2020-02-20 13:55 | PDOC.NEUPN ---
- Subjective Encounter Date: 02/20/20 Subjective: Patient denies any improvement in her symptoms. She complains of generalized weakness, dizziness and headache. She denies SOB , double vision, drooping of the eyelids or difficulty in swallowing. - Objective Vital Signs & Weight: Vital Signs (12 hours) Temp Pulse Pulse Pulse Pulse Resp BP 02/20/20 11:12 97.7 F 114 H 18 02/20/20 09:16 94 159 H 106 H 110/74 02/20/20 07:35 98.1 F 80 16 02/20/20 03:38 98.2 F 81 18 BP BP Pulse Ox 02/20/20 11:12 105/70 96 02/20/20 09:16 119/73 02/20/20 07:35 103/70 96 02/20/20 03:38 117/57 L 97 Weight Weight 174 lb 6.4 oz I&O: 02/19/20 02/20/20 02/21/20 06:59 06:59 06:59 Intake Total 720 Balance 720 Result Diagrams: 02/19/20 06:38 02/19/20 06:38 Additional Labs: Accuchecks 02/20/20 02/20/20 02/20/20 10:26 05:18 04:36 POC Glucose 131 H 96 87 02/19/20 02/19/20 20:28 16:41 POC Glucose 163 H 137 H Radiology Reviewed by me: Yes EKG Reviewed by me: Yes ROS - Review of Systems Constitutional: denies: fever, chills, sweats, weakness, malaise, other ENT: denies: ear pain, ear discharge, nose pain, nose discharge, nose congestion, mouth pain, mouth swelling, throat pain, throat swelling, other Respiratory: denies: cough, dry, shortness of breath, hemoptysis, SOB with excertion, pleuritic pain, sputum, wheezing, other Neurological: reports: weakness, incoordination. denies: numbness, change in speech, confusion, seizures, other Other: Difficulty ambulating. - Medication Medications: Active Medications Generic Name Dose Route Start Last Admin Trade Name Freq PRN Reason Stop Dose Admin Acetaminophen 650 mg 02/18/20 16:30 02/20/20 09:52 Acetaminophen 325 Mg Tab PO 650 mg Q4H PRN Administration Headache/Fever/Mild Pain (1-3) Azathioprine 50 mg 02/18/20 21:00 02/20/20 09:49 Azathioprine 50 Mg Tab PO 50 mg BID LELO Administration Enoxaparin Sodium 40 mg 02/19/20 09:00 02/20/20 09:48 Enoxaparin Sodium 40 Mg/0.4 Ml Syringe SC 40 mg 0900 [facility] Administration Ferrous Gluconate 324 mg 02/19/20 09:00 02/20/20 09:49 Ferrous Gluconate 324 Mg Tab PO 324 mg DAILY [facility]O Administration Fluoxetine HCl 20 mg 02/19/20 09:00 02/20/20 09:49 Fluoxetine Hcl 20 Mg Cap PO 20 mg DAILY LELO Administration Immune Globulin 60 gm/ Immune 650 mls @ 0 mls/hr 02/19/20 15:00 02/19/20 16:11 Globulin 5 gm/ Miscellaneous IVPB 02/21/20 15:01 650 mls Medication 1500 LELO Administration As Directed Levothyroxine Sodium 125 mcg 02/19/20 06:00 02/20/20 05:35 Levothyroxine Sodium 125 Mcg Tab PO 125 mcg 0600 [facility] Administration Lisinopril 20 mg 02/19/20 09:00 02/20/20 09:49 Lisinopril 20 Mg Tab PO 20 mg DAILY L[facility]O Administration Lorazepam 0.5 mg 02/18/20 16:30 02/19/20 19:56 Lorazepam 0.5 Mg Tab PO 0.5 mg TIDPRN PRN Administration Anxiety Metformin HCl 1,000 mg 02/19/20 09:00 02/20/20 09:49 Metformin 500 Mg Tab PO 1,000 mg DAILY LELO Administration Miscellaneous Medication 25 mg 02/19/20 09:00 02/20/20 09:50 Empagliflozin 25 Mg Tab PO 25 mg DAILY [facility]O Administration Pantoprazole Sodium 40 mg 02/19/20 09:00 02/20/20 09:50 Pantoprazole 40 Mg Tab PO 40 mg DAILY [facility] Administration Pyridostigmine [place] 120 mg 02/18/20 21:00 02/20/20 09:50 Pyridostigmine [place] Ir 60 Mg Tab PO 120 mg TID LELO Administration Rosuvastatin Calcium 10 mg 02/18/20 21:00 02/19/20 19:56 Rosuvastatin 10 Mg Tab PO 10 mg HS LELO Administration Results - Labs Result Diagrams: 02/19/20 06:38 02/19/20 06:38 Lab results: WBC 9.0 thou/uL (4.8-10.8) 02/19/20 06:38 Hgb 11.5 g/dL (12.0-16.0) L 02/19/20 06:38 Hct 38.0 % (36.0-47.0) 02/19/20 06:38 MCV 82.1 fL (78.0-98.0) 02/19/20 06:38 Plt Count 420 thou/uL (130-400) H 02/19/20 06:38 Neutrophils % 73.6 % (42.0-75.0) 02/19/20 06:38 Sodium 134 mmol/L (136-145) L 02/19/20 06:38 Potassium 4.2 mmol/L (3.5-5.1) 02/19/20 06:38 Chloride 101 mmol/L (98-107) 02/19/20 06:38 Carbon Dioxide 20 mmol/L (22-29) L 02/19/20 06:38 BUN 13 mg/dL (7.0-18.7) 02/19/20 06:38 Creatinine 0.59 mg/dL (0.6-1.1) L 02/19/20 06:38 Glucose 85 mg/dL (70-105) 02/19/20 06:38 Calcium 10.0 mg/dL (7.8-10.44) 02/19/20 06:38 Total Bilirubin 0.6 mg/dL (0.2-1.2) 02/19/20 06:38 AST 64 U/L (5-34) H 02/19/20 06:38 ALT 126 U/L (8-55) H 02/19/20 06:38 Alkaline Phosphatase 38 U/L (40-110) L 02/19/20 06:38 Creatine Kinase 31 U/L (29-168) 02/19/20 06:38 Troponin I Less than 0.010 ng/mL (< 0.028) 02/18/20 13:19 C-Reactive Protein 0.75 mg/dL (= or < 0.5) H 02/19/20 06:38 Serum Total Protein 7.9 g/dL (6.0-8.3) 02/19/20 06:38 Albumin 4.6 g/dL (3.5-5.0) 02/19/20 06:38 - Radiology Interpretation Chest x-ray Additional Comment: normal PN A/P (1) Myasthenia exacerbation Code(s): G70.01 - MYASTHENIA GRAVIS WITH (ACUTE) EXACERBATION Status: Acute (2) Tachycardia Code(s): R00.0 - TACHYCARDIA, UNSPECIFIED Status: Acute (3) Diabetes Code(s): E11.9 - TYPE 2 DIABETES MELLITUS WITHOUT COMPLICATIONS Status: Chronic Qualifiers: Diabetes mellitus type: type 2 Diabetes mellitus termite exterminator helper insulin use: without penitentiary use Diabetes mellitus complication status: without c omplication Qualified Code(s): E11.9 - Type 2 diabetes mellitus without c omplications (4) HTN (hypertension) Code(s): I10 - ESSENTIAL (PRIMARY) HYPERTENSION Status: Chronic Qualifiers: Hypertension type: essential hypertension Qualified Code(s): I10 - Essential (primary) hypertension (5) Hypothyroidism Code(s): E03.9 - HYPOTHYROIDISM, UNSPECIFIED Status: Chronic Qualifiers: Hypothyroidism type: acquired Qualified Code(s): E03.9 - Hypothyroidism, unspecified - Plan Daily Plan: plan discussed w/ family ( at bedside.) 49 year old female who was recently diagnosed with myasthenia gravis in december 2019 presented with generalized weakness and difficulty ambulating. Patient and upset since this is her third hospital admission and she feels that medications are not working. Patient's primary neurologist is Dr. Nance who has been actively managing her medications and adjusting her doses. I had a long discussion with the patient and the that she is on the right combination of medications and the mestinon dose is recently increased and aziothioprine is also recently started so it will be too soon to change to a new agent which made them upset. She has received IVIG for MG exacerbation and today is Day 2. They want to touch base with Dr. Nance regarding new termite exterminator helper options including thymectomy option.. Continue IVIG X 3 days. Today is Day 2. Neurochecks every 4 hours. Monitor closely Negative inspiratory pressure and vital capacity. Continue current doses of mestinon and aziothioprine. Will touch base with Dr. Nance regarding any changes in the regimen as inpatient . Strict control of BP and BG. Continue telemetry. Episodes of tachycardia during ambulation. Consider cardiology input. Continue home emdications. Continue medical management per primary team. PT/OT/Speech DVT prophylaxis. Plan discussed in detail with the patient, and the primary attending Dr. Mariano. Dr. Nance has been made aware of the patient inpatient status and he will follow up tomorrow with more recommendations.
[2020-02-20] MEDS: OCTAGAM 10% 60 GM, OCTAGAM 10% 5 GM in Admixture Fee 1 EACH IVPB SCH (15:56)
--- NOTE | 2020-02-20 18:00 | CON ---
DATE OF CONSULTATION: REASON FOR CONSULTATION: Tachycardia. HISTORY OF PRESENT ILLNESS: Ms. Gamez is a 49-year-old woman, who has not been seen or evaluated by Cardiology in the past. She recently presented with weakness. She was diagnosed with myasthenia gravis one month ago. She states her symptoms have been similar. No chest pain or pressure. She is asymptomatic during these episodes of increased heart rate. Heart rate increases into the 150s. This occurred with little exercise. The patient has had a low TSH in the past. She has not had a recent echo. PAST MEDICAL HISTORY: 1. Recent diagnosis of myasthenia gravis. 2. Hypertension. 3. Hypothyroidism. 4. Diabetes mellitus. MEDICATIONS: Include; 1. Trulicity. 2. Vitamin D. 3. Prozac. 4. Fergon. 5. Crestor. 6. Glucophage. 7. Prednisone. 8. Invokana. 9. Ativan. PAST SURGICAL HISTORY: . FAMILY HISTORY: Negative for CAD. SOCIAL HISTORY: Positive for tobacco. Positive for alcohol use. Currently . REVIEW OF SYSTEMS: A 10-point review of systems is reviewed and is as above, otherwise negative. PHYSICAL EXAMINATION: VITAL SIGNS: Blood pressure 104/78, pulse 111, temperature 97.8. GENERAL: Patient is a pleasant woman, who is in no acute distress. The patient appears their stated age. NEUROLOGIC: The patient is alert and oriented x3 with no focal neurologic deficits. HEENT: Sclerae without icterus. Mouth has moist mucous membranes with normal pallor. NECK: No JVD. Carotid upstroke brisk. No bruits bilaterally. LUNGS: Clear to auscultation with unlabored respirations. BACK: No scoliosis or kyphosis. CARDIAC: Regular rate and rhythm with normal S1 and S2. No S3 or S4 noted. No significant rubs, murmurs, thrills, or gallops noted throughout the precordium. PMI is not displaced. There is no parasternal heave. ABDOMEN: Soft, nontender, nondistended. No peritoneal signs present. No hepatosplenomegaly. No abnormal striae. EXTREMITIES: 2+ femoral and 2+ dorsalis pedis pulses. No cyanosis, clubbing, or edema. SKIN: No gross abnormalities. PERTINENT LABORATORY DATA: Hemoglobin 11.5, hematocrit 38, platelet count 420. EKG shows normal sinus rhythm, normal EKG. Telemetry monitoring shows intermittent episodes of sinus tachycardia. IMPRESSION: 1. Weakness, fatigue. 2. Myasthenia gravis. 3. Tachycardia. RECOMMENDATIONS: There is caution with use of beta dottie therapy. We will need to discuss with Neurology on use of a low-dose beta dottie therapy. If blood pressure has been marginal, then may also consider calcium channel dottie instead of a beta dottie. We will repeat her TSH in addition to checking an echo. Job ID: [id number] [id number]
[2020-02-20] MEDS: Rosuvastatin 10 MG TAB PO SCH (20:02)
[2020-02-20] MEDS: Lorazepam 0.5 MG TAB PO PRN (20:03)
[2020-02-20] MEDS ORDERED: Pyridostigmine Bromide IR 60 MG TAB PO SCH (21:00)
[2020-02-20] MEDS ORDERED: TRULICITY 0.75 MG SC SCH (23:00)
[2020-02-21 04:01] LABS: #Basophils 0.1 thou/uL (0.0-0.2); #Eosinphils 0.1 thou/uL (0.0-0.7); #Lymphocytes 1.4 thou/uL (1.20-3.40); #Monocytes 0.5 thou/uL (0.11-0.59); #Neutrophils 1.2 thou/uL (1.40-6.50); %Eosinophils 4.1 % (0.0-10.0); %Lymphocytes 41.8 % (21.0-51.0); %Monocytes 14.3 % (0.0-10.0); %Neutrophils 37.8 % (42.0-75.0); Hemoglobin 10.6 g/dL (12.0-16.0); Mean Corpuscular HGB CONC 30.6 g/dL (32.0-36.0); Mean Corpuscular Hemoglobin 25.2 pg (27.0-31.0); Mean Corpuscular Volume 82.4 fL (78.0-98.0); Mean Platelet Volume 7.1 fL (7.4-10.4); Platelet Count 313 thou/uL (130-400); RBC Distribution Width 19.7 % (11.5-14.5); Red Blood Cell (RBC) Count 4.21 mill/uL (4.20-5.40); White Blood Cell (WBC) Count 3.2 thou/uL (4.8-10.8)
[2020-02-21 04:16] LABS: Anion Gap 12 mmol/L (10-20); BUN (Urea Nitrogen) 13 mg/dL (7.0-18.7); Calc. Creatinine Clearance 123 mL/min (70-130); Calcium 8.6 mg/dL (7.8-10.44); Carbon Dioxide 23 mmol/L (22-29); Chloride 101 mmol/L (98-107); Glucose 106 mg/dL (70-105); Potassium 3.9 mmol/L (3.5-5.1); Sodium 132 mmol/L (136-145)
[2020-02-21] MEDS: Levothyroxine Sodium 125 MCG TAB PO SCH (05:41)
[2020-02-21] MEDS: Empagliflozin 25 MG TAB PO SCH (08:36)
[2020-02-21] MEDS: metFORMIN 500 MG TAB PO SCH (08:36)
[2020-02-21] MEDS: Pyridostigmine Bromide IR 60 MG TAB PO SCH ×2 (08:36→16:21)
[2020-02-21] MEDS: Lisinopril 20 MG TAB PO SCH (08:36)
[2020-02-21] MEDS: Ferrous Gluconate 324 MG TAB PO SCH (08:36)
[2020-02-21] MEDS: Enoxaparin Sodium 40 MG/0.4 ML SYRINGE SC SCH (08:36)
[2020-02-21] MEDS: predniSONE 20 MG TAB PO SCH (08:37)
[2020-02-21] MEDS: FLUoxetine HCl 20 MG CAP PO SCH (08:37)
[2020-02-21] MEDS: azaTHIOprine 50 MG TAB PO SCH ×2 (08:37→21:00)
[2020-02-21] MEDS ORDERED: TRULICITY 0.75 MG SC SCH (09:00)
--- NOTE | 2020-02-21 12:42 | PDOC.HOSPP ---
- Subjective Encounter Date: 02/21/20 Subjective: feels much better today. - Objective Vital Signs & Weight: Vital Signs (12 hours) Temp Pulse Resp BP BP Pulse Ox 02/21/20 11:58 98.4 F 83 16 103/59 L 98 02/21/20 08:32 97.7 F 81 16 128/84 97 02/21/20 05:38 81 112/73 02/21/20 03:46 98.5 F 92 18 94/57 L 92 L Weight Weight 175 lb 1.6 oz I&O: 02/20/20 02/21/20 02/22/20 06:59 06:59 06:59 Intake Total 720 720 Balance 720 720 Result Diagrams: 02/21/20 03:22 02/21/20 03:22 Additional Labs: Accuchecks 02/21/20 02/21/20 02/20/20 11:11 06:00 20:31 POC Glucose 164 H 118 H 175 H 02/20/20 02/19/20 16:58 06:11 POC Glucose 115 H 93 Hospitalist ROS - Medication Medications: Active Medications Generic Name Dose Route Start Last Admin Trade Name Freq PRN Reason Stop Dose Admin Acetaminophen 650 mg 02/18/20 16:30 02/20/20 19:20 Acetaminophen 325 Mg Tab PO 650 mg Q4H PRN Administration Headache/Fever/Mild Pain (1-3) Azathioprine 50 mg 02/18/20 21:00 02/21/20 08:37 Azathioprine 50 Mg Tab PO 50 mg BID LELO Administration Enoxaparin Sodium 40 mg 02/19/20 09:00 02/21/20 08:36 Enoxaparin Sodium 40 Mg/0.4 Ml Syringe SC 40 mg 0900 LELO Administration Ferrous Gluconate 324 mg 02/19/20 09:00 02/21/20 08:36 Ferrous Gluconate 324 Mg Tab PO 324 mg DAILY LELO Administration Fluoxetine HCl 20 mg 02/19/20 09:00 02/21/20 08:37 Fluoxetine Hcl 20 Mg Cap PO 20 mg DAILY LELO Administration Immune Globulin 60 gm/ Immune 650 mls @ 0 mls/hr 02/19/20 15:00 02/20/20 15:56 Globulin 5 gm/ Miscellaneous IVPB 02/21/20 15:01 650 mls Medication 1500 LEOL Administration As Directed Lisinopril 20 mg 02/19/20 09:00 02/21/20 08:36 Lisinopril 20 Mg Tab PO 20 mg DAILY LELO Administration Lorazepam 0.5 mg 02/18/20 16:30 02/20/20 20:03 Lorazepam 0.5 Mg Tab PO 0.5 mg TIDPRN PRN Administration Anxiety Metformin HCl 1,000 mg 02/19/20 09:00 02/21/20 08:36 Metformin 500 Mg Tab PO 1,000 mg DAILY LELO Administration Miscellaneous Medication 25 mg 02/19/20 09:00 02/21/20 08:36 Empagliflozin 25 Mg Tab PO 25 mg DAILY LELO Administration Pantoprazole Sodium 40 mg 02/19/20 09:00 02/21/20 08:36 Pantoprazole 40 Mg Tab PO 40 mg DAILY LELO Administration Trulicity ( 0.75 each 02/20/20 23:00 02/20/20 22:40 Dulaglutide) 0.75 Mg SC 0.75 each Pen Q7D LELO Administration Prednisone 20 mg 02/21/20 08:00 02/21/20 08:37 Prednisone 20 Mg Tab PO 20 mg QAM-WM LELO Administration Pyridostigmine [place] 120 mg 02/18/20 21:00 02/21/20 08:36 Pyridostigmine [place] Ir 60 Mg Tab PO 120 mg TID LELO Administration Rosuvastatin Calcium 10 mg 02/18/20 21:00 02/20/20 20:02 Rosuvastatin 10 Mg Tab PO 10 mg HS LELO Administration - Exam General Appearance: awake alert Eye: PERRL, anicteric sclera ENT: normocephalic atraumatic, no oropharyngeal lesions Neck: supple Heart: RRR, no murmur Respiratory: CTAB, no wheezes Gastrointestinal: soft, non-tender, non-distended, normal bowel sounds Extremities: no cyanosis, no clubbing Skin: normal turgor Neurological: cranial nerve grossly intact Hosp A/P (1) Myasthenia exacerbation Code(s): G70.01 - MYASTHENIA GRAVIS WITH (ACUTE) EXACERBATION Status: Acute (2) Diabetes Code(s): E11.9 - TYPE 2 DIABETES MELLITUS WITHOUT COMPLICATIONS Status: Chronic Qualifiers: Diabetes mellitus type: type 2 Diabetes mellitus fci insulin use: without 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 Diabetes mellitus complication status: without complication Qualified Code(s): E11.9 - Type 2 diabetes mellitus without complications (3) HTN (hypertension) Code(s): I10 - ESSENTIAL (PRIMARY) HYPERTENSION Status: Chronic Qualifiers: Hypertension type: essential hypertension Qualified Code(s): I10 - Essential (primary) hypertension (4) Hypothyroidism Code(s): E03.9 - HYPOTHYROIDISM, UNSPECIFIED Status: Chronic Qualifiers: Hypothyroidism type: acquired Qualified Code(s): E03.9 - Hypothyroidism, unspecified (5) Tachycardia Code(s): R00.0 - TACHYCARDIA, UNSPECIFIED Status: Acute - Plan Patient improved since admission, but still is frustrated that her improvement is only short term and she is relapsing frequently. I spoke with Neuro, seems that they voiced dissatisfaction with the care that she is getting, from our stand point, She is on IVIG and the effect will show in a week or so , will continue with current management. 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 she is having episodes of tachycardia with activity, will consult Cardiology for further input. plan for today 02/20 She appears to be better today. her TSH was noted to be low, I will decrease her dose of synthroid and TSH should be repeated in a month or so. appreciate Cardiology input, awaiting echocardiogram results. I spoke with Dr Slade and hopefully he will see her today. will recheck labs in am.
[2020-02-21] MEDS ORDERED: Levothyroxine Sodium 100 MCG TAB PO SCH (12:45)
[2020-02-21 13:29] LABS: Free T4 (Free Thyroxine) 1.59 ng/dL (0.70-1.48)
[2020-02-21] MEDS ORDERED: OCTAGAM 10% 60 GM in Admixture Fee 1 EACH IVPB SCH (15:00)
[2020-02-21] MEDS: Acetaminophen 325 MG TAB PO PRN (16:21)
--- NOTE | 2020-02-21 17:40 | PRG ---
DATE OF SERVICE: 02/21/2020 SUBJECTIVE: Ms. Gamez continues to complain that she is weaker than she feels like she should be. She has some intermittent subjective double vision. She walked independently, holding onto the side rail for more than 200 feet with the physical therapist. There are no pulmonary measures on the chart. Her Imuran has been restarted at 50 mg twice a day. She is currently on Mestinon 120 q.8., is receiving her 3rd dose of IVIG along with prednisone 20 mg per day. Blood sugars have been running in the mid 100s. OBJECTIVE: On exam, her speech is fluent and clear. She has no ptosis. She has good eye closure strength. There is possibly some mild neck extension weakness. She had 4/5 deltoid strength, but 5/5 biceps and 4/5 triceps. She had some symmetric hip flexion weakness. She was able to rise from a chair without using her hands. She could stand on tiptoes without any difficulty. ASSESSMENT AND PLAN: Overall, her strength seems reasonably good at this point. She remains concerned that she seems to wax and wane unexpectedly. I agree with her current regimen and have only made some minor adjustments in her Mestinon. I have arranged followup with Dr. Key in [facility] to get his input on her case. Hopefully, she can be discharged after the IVIG and I will see her in the office next week. Job ID: [id number]
--- NOTE | 2020-02-21 18:30 | PDOC.CPN ---
- Subjective Date: 02/21/20 Time: 12:45 Interval history: Patient remains in SR. Intermittent bursts up to 150bpm that are short. Asymptomatic. - Review of Systems General: denies: fever/chills, weight/appetite/sleep changes, night sweats, fatigue Respiratory: denies: cough, congestion, shortness of breath, exercise intolerance Cardiovascular: denies: chest pain, palpitation, edema, paroxysmal nocturnal dyspnea, orthopnea Gastrointestinal: denies: nausea, vomiting, diarrhea, constipation, abd pain, GI bleeding Musculoskeletal: denies: pain, tenderness, stiffness, swelling, arthritis/arthralgias Neurological: reports: weakness - Objective Allergies/Adverse Reactions: Allergies Allergy/AdvReac Type Severity Reaction Status Date / Time No Known Drug Allergies Allergy Verified 02/19/20 09:32 Visit Medications: Current Medications Acetaminophen (Acetaminophen 325 Mg Tab) 650 mg PO Q4H PRN PRN Reason: Headache/Fever/Mild Pain (1-3) Last Admin: 02/21/20 16:21 Dose: 650 mg Documented by: Hydrocodone Bitart/Acetaminophen (Hydrocodone/Acetaminophen 5/325 Mg Tablet) 1 tab PO Q4H PRN PRN Reason: Moderate Pain (4-6) Azathioprine (Azathioprine 50 Mg Tab) 50 mg PO BID [facility] Last Admin: 02/21/20 08:37 Dose: 50 mg Documented by: Benzonatate (Benzonatate 100 Mg Cap) 100 mg PO Q6H PRN PRN Reason: Cough Bisacodyl (Bisacodyl 10 Mg Supp) 10 mg [place] DAILYPRN PRN PRN Reason: Constipation Calcium Carbonate (Calcium Carbonate 500 Mg Chewtab) 1,000 mg PO Q4H PRN PRN Reason: Heartburn or Indigestion Dextrose/Water (Dextrose 50% Abboject 50 Ml Syringe) 25 gm SLOW IVP PRN PRN PRN Reason: Hypoglycemia Enoxaparin Sodium (Enoxaparin Sodium 40 Mg/0.4 Ml Syringe) 40 mg SC 0900 [facility] Last Admin: 02/21/20 08:36 Dose: 40 mg Documented by: Ferrous Gluconate (Ferrous Gluconate 324 Mg Tab) 324 mg PO DAILY [facility] Last Admin: 02/21/20 08:36 Dose: 324 mg Documented by: Fluoxetine HCl (Fluoxetine Hcl 20 Mg Cap) 20 mg PO DAILY [facility] Last Admin: 02/21/20 08:37 Dose: 20 mg Documented by: Glucagon (Glucagon 1 Mg/Ml Vial) 1 mg IM PRN PRN PRN Reason: Hypoglycemia Guaifenesin (Diabetic Tussin 200 Mg/10 Ml Udcup) 200 mg PO Q4H PRN PRN Reason: Cough Guaifenesin/Dextromethorphan (Guaifenesin Dm 100-10/5 Ml Udcup) 15 ml PO Q4H PRN PRN Reason: Cough Hydralazine HCl (Hydralazine 20 Mg/Ml Vial) 10 mg SLOW IVP Q4H PRN PRN Reason: SBP > 180 and HR < 70 Dextrose/Water (D5w) 1,000 mls @ 0 mls/hr IV .Q0M PRN PRN Reason: Hypoglycemia Immune Globulin 60 gm/ (Miscellaneous Medication) 600 mls @ 0 mls/hr IVPB 1500 [facility] Stop: 02/21/20 23:00 Last Admin: 02/21/20 16:59 Dose: 600 mls Documented by: Insulin Human Lispro (Humalog 300 Units/3 Ml Vial) 0 units SC .MODERATE SLIDING SC PRN PRN Reason: Moderate Correctional Scale Insulin Human Lispro (Humalog 300 Units/3 Ml Vial) 0 units SC .BEDTIME SLIDING SC PRN PRN Reason: Bedtime Correctional Scale Levothyroxine Sodium (Levothyroxine Sodium 100 Mcg Tab) 100 mcg PO 0600 [facility] Lisinopril (Lisinopril 20 Mg Tab) 20 mg PO DAILY [facility] Last Admin: 02/21/20 08:36 Dose: 20 mg Documented by: Loperamide HCl (Loperamide Hcl 2 Mg Cap) 2 mg PO PRN PRN PRN Reason: Diarrhea/Loose Stools Loratadine (Loratadine 10 Mg Tab) 10 mg PO DAILYPRN PRN PRN Reason: Sinus Symptoms Lorazepam (Lorazepam 0.5 Mg Tab) 0.5 mg PO TIDPRN PRN PRN Reason: Anxiety Last Admin: 02/20/20 20:03 Dose: 0.5 mg Documented by: Metformin HCl (Metformin 500 Mg Tab) 1,000 mg PO DAILY [facility] Last Admin: 02/21/20 08:36 Dose: 1,000 mg Documented by: Metoprolol Succinate (Metoprolol Succinate Xl 25 Mg Tab) 12.5 mg PO DAILY [facility] Miscellaneous Medication (Empagliflozin 25 Mg Tab) 25 mg PO DAILY [facility] Last Admin: 02/21/20 08:36 Dose: 25 mg Documented by: Ondansetron HCl (Ondansetron Pf 4 Mg/2 Ml Vial) 4 mg IVP Q6H PRN PRN Reason: Nausea/Vomiting Ondansetron HCl (Ondansetron Odt 4 Mg Tab) 4 mg PO Q6H PRN PRN Reason: Nausea/Vomiting Pantoprazole Sodium (Pantoprazole 40 Mg Tab) 40 mg PO DAILY [facility] Last Admin: 02/21/20 08:36 Dose: 40 mg Documented by: Last ( Dulaglutide) 0.75 Mg Pen 0.75 each SC Q7D [facility] Last Admin: 02/20/20 22:40 Dose: 0.75 each Documented by: Prednisone (Prednisone 20 Mg Tab) 20 mg PO QAM-WM [facility] Last Admin: 02/21/20 08:37 Dose: 20 mg Documented by: Pyridostigmine [place] (Pyridostigmine [place] Ir 60 Mg Tab) 120 mg PO TID [facility] Last Admin: 02/21/20 16:21 Dose: 120 mg Documented by: Rosuvastatin Calcium (Rosuvastatin 10 Mg Tab) 10 mg PO HS [facility] Last Admin: 02/20/20 20:02 Dose: 10 mg Documented by: Senna/Docusate Sodium (Senokot S 8.6-50 Mg Tab) 2 tab PO BID PRN PRN Reason: Constipation Sodium Chloride (Sodium Chloride 0.65% Nasal 44 Ml Bot) 0 ml EA NARE QIDPRN PRN PRN Reason: Nasal Congestion Throat Lozenges (Cepastat Lozenges 1 Taqueria) 1 taqueria PO Q2H PRN PRN Reason: Sore Throat Zolpidem Tartrate (Zolpidem Tartrate 5 Mg Tab) 5 mg PO HSPRN PRN PRN Reason: Insomnia Vital Signs & Weight: Vital Signs Temp Pulse Resp BP BP Pulse Ox 02/21/20 16:17 98.4 F 18 103/66 96 02/21/20 11:58 98.4 F 83 16 103/59 L 98 02/21/20 08:32 97.7 F 81 16 128/84 97 Weight 175 lb 1.6 oz - Physical Exam HEENT: mucus membranes moist Neck: supple neck Cardiac: regular rate and rhythm Lungs: clear to auscultation Neuro: grossly intact Abdomen: soft, non-tender Extremities: no cyanosis Skin: clear Musculoskeletal: normal range of motion - Labs Result Diagrams: 02/22/20 04:32 02/22/20 04:32 Troponin/CKMB Troponin I Less than 0.010 ng/mL (< 0.028) 02/18/20 13:19 - Assessment/Plan Assessment/Plan: 1. MG 2. Sinus Tach 3. Elevated TSH Will check FT3 and FT4. If abnormal, will decrease synthroid. Could consider adding bblocker, but patient asymptomatic. If contraindicated with MG, could add corlanor. RG 02/20 Pt seen and evaluated. SW Dr. Slade. OK to start low dose BB given sharp rise in HR with little exertion. Pt though without symptoms. monitor for 24 hours on BB. If stable, ok for home from CV standpoint on .
[2020-02-21] MEDS: Lorazepam 0.5 MG TAB PO PRN (21:00)
[2020-02-21] MEDS: Rosuvastatin 10 MG TAB PO SCH (21:00)
[2020-02-22] MEDS: Pyridostigmine Bromide IR 60 MG TAB PO SCH ×2 (00:10→05:21)
[2020-02-22 05:09] LABS: Anion Gap 12 mmol/L (10-20); BUN (Urea Nitrogen) 11 mg/dL (7.0-18.7); Calc. Creatinine Clearance 129 mL/min (70-130); Calcium 8.7 mg/dL (7.8-10.44); Carbon Dioxide 24 mmol/L (22-29); Chloride 100 mmol/L (98-107); Glucose 96 mg/dL (70-105); Potassium 3.8 mmol/L (3.5-5.1); Sodium 132 mmol/L (136-145)
[2020-02-22] MEDS ORDERED: Levothyroxine Sodium 100 MCG TAB PO SCH ×2 (06:00)
[2020-02-22 06:29] LABS: #Basophils 0.1 thou/uL (0.0-0.2); #Eosinphils 0.1 thou/uL (0.0-0.7); #Lymphocytes 1.6 thou/uL (1.20-3.40); #Monocytes 0.6 thou/uL (0.11-0.59); #Neutrophils 1.8 thou/uL (1.40-6.50); %Basophils 1.5 % (0.0-1.0); %Eosinophils 2.5 % (0.0-10.0); %Lymphocytes 39.1 % (21.0-51.0); %Monocytes 13.7 % (0.0-10.0); %Neutrophils 43.2 % (42.0-75.0); Anisocytosis MODERATE=16-30 cells (100X) (0-5/hpf); Hemoglobin 10.3 g/dL (12.0-16.0); MDiff Complete? YES; Mean Corpuscular HGB CONC 31.4 g/dL (32.0-36.0); Mean Corpuscular Hemoglobin 25.5 pg (27.0-31.0); Mean Corpuscular Volume 81.3 fL (78.0-98.0); Mean Platelet Volume 7.2 fL (7.4-10.4); Platelet Count 294 thou/uL (130-400); RBC Distribution Width 19.2 % (11.5-14.5); Red Blood Cell (RBC) Count 4.04 mill/uL (4.20-5.40); White Blood Cell (WBC) Count 4.2 thou/uL (4.8-10.8)
--- NOTE | 2020-02-22 08:43 | PDOC.DS.DS ---
Provider - Provider Date of Admission: 02/18/20 18:12 Date of Discharge: 02/22/20 Admitting Provider: Sergio Kaufman MD Consultations: Cardiology, Nephrology Primary Care Physician: KINGSLEY PAULSON MD Course - Hospital Course Hospital Course: She was admitted on 02/17 for recurrent exacerbation of her newly diagnosed MG. Her complaint was generalized weakness. she was given a dose of IV Solumedrol and maintained on Prednisone, she never had respiratory issues, she had episodes of sinus tachycardia with movement, she was seen by Cradiology and there was a discussion that she might need to be on a Beta dottie, her TSH was low and it was thought that decreasing her synthroid should suffice for now.Her echo showed EF of 50-55 %, possible d iastolic dysfunction. I decreased Synthroid to 100 mcg and advised her to f/u with PCP in an month to recheck level and adjust. She finished her IVIG she feels much better today and ready to go back home. She was seen by Dr Sldae who changed the frequency of Mestinon. I will send her a prescription of the new dose of synthroid. Resuscitation Status: 02/18/20 16:21 Resuscitation Status Routine Resuscitation Status: FULL: Full Resuscitation - Labs Lab Results: 02/22/20 04:32 02/22/20 04:32 Abnormal Lab Results - Last 48 hrs 02/20/20 17:50: TSH 3rd Generation 0.1071 L 02/21/20 03:22: Sodium 132 L 02/21/20 03:22: WBC 3.2 L, Hgb 10.6 L, Hct 34.7 L, MCH 25.2 L, MCHC 30.6 L, RDW 19.7 H, MPV 7.1 L, Neutrophils % 37.8 L, Monocytes % 14.3 H, Basophils % 2.0 H, Neutrophils # 1.2 L 02/21/20 12:43: Free T4 1.59 H 02/22/20 04:32: Sodium 132 L 02/22/20 04:32: WBC 4.2 L, RBC 4.04 L, Hgb 10.3 L, Hct 32.8 L, MCH 25.5 L, MCHC 31.4 L, RDW 19.2 H, MPV 7.2 L, Monocytes % 13.7 H, Basophils % 1.5 H, Monocytes # 0.6 H, Anisocytosis MODERATE=16-30 cells H - Physical Exam Vitals: Vital Signs (12 hours) Temp Pulse Resp BP Pulse Ox 02/22/20 03:48 98.2 F 82 20 103/64 97 02/22/20 00:10 107 H Weight Weight 175 lb Physical Exam: The patient was seen and examined on the day of discharge. Problem - Problem (1) Myasthenia exacerbation Code(s): G70.01 - MYASTHENIA GRAVIS WITH (ACUTE) EXACERBATION Status: Acute (2) Diabetes Code(s): E11.9 - TYPE 2 DIABETES MELLITUS WITHOUT COMPLICATIONS Status: Chronic Qualifiers: Diabetes mellitus type: type 2 Diabetes mellitus senior living insulin use: without senior living use Diabetes mellitus complication status: without complication Qualified Code(s): E11.9 - Type 2 diabetes mellitus without complications (3) HTN (hypertension) Code(s): I10 - ESSENTIAL (PRIMARY) HYPERTENSION Status: Chronic Qualifiers: Hypertension type: essential hypertension Qualified Code(s): I10 - Essential (primary) hypertension (4) Hypothyroidism Code(s): E03.9 - HYPOTHYROIDISM, UNSPECIFIED Status: Chronic Qualifiers: Hypothyroidism type: acquired Qualified Code(s): E03.9 - Hypothyroidism, unspecified (5) Tachycardia Code(s): R00.0 - TACHYCARDIA, UNSPECIFIED Status: Acute - Time spent with Patient (mins): 35 Plan - Discharge Medications Prescriptions: Levothyroxine Sodium [Synthroid] 100 mcg PO 0600 #30 tab Home Medications: Medication Instructions Recorded Confirmed Type Dulaglutide [Trulicity] 0.75 mg SC Q7D 01/15/20 02/19/20 History Ergocalciferol (Vitamin D2) 50,000 unit PO DAILY 01/15/20 02/19/20 History [Vitamin D2] FLUoxetine HCl [Prozac] 20 mg PO DAILY 01/15/20 02/19/20 History Ferrous Gluconate [Fergon] 324 mg PO DAILY 01/15/20 02/19/20 History Rosuvastatin [Crestor] 10 mg PO DAILY 01/15/20 02/19/20 History metFORMIN [Glucophage] 500 mg PO DAILY 01/15/20 02/19/20 History predniSONE 20 mg PO [facility]- #15 tab 01/18/20 02/19/20 Rx Canagliflozin [Invokana] 300 mg PO DAILY 02/07/20 02/19/20 History Lisinopril 20 mg PO DAILY 02/07/20 02/19/20 History Levothyroxine Sodium [Synthroid] 100 mcg PO 0600 #30 tab 02/22/20 Rx Lorazepam [Ativan] 0.5 mg PO BID PRN #0 02/22/20 02/19/20 Rx Pyridostigmine [place] [Mestinon] 90 mg PO Q6HR tab 02/22/20 Rx azaTHIOprine [Imuran] 50 mg PO BID tab 02/22/20 Rx Allergies: No Known Drug Allergies Allergy (Verified 02/19/20 09:32) per patient report - Follow up Plan Referrals: KINGSLEY PAULSON MD [Primary Care Provider] - Disposition: HOME
[2020-02-22] MEDS: azaTHIOprine 50 MG TAB PO SCH (08:45)
[2020-02-22] MEDS: Lisinopril 20 MG TAB PO SCH (08:46)
[2020-02-22] MEDS: predniSONE 20 MG TAB PO SCH (08:46)
[2020-02-22] MEDS: Ferrous Gluconate 324 MG TAB PO SCH (08:46)
[2020-02-22] MEDS: metFORMIN 500 MG TAB PO SCH (08:46)
[2020-02-22] MEDS: Empagliflozin 25 MG TAB PO SCH (08:46)
[2020-02-22] MEDS: FLUoxetine HCl 20 MG CAP PO SCH (08:46)
[2020-02-22] MEDS: Enoxaparin Sodium 40 MG/0.4 ML SYRINGE SC SCH (08:47)
--- NOTE | 2020-02-22 09:37 | PDOC.CPN ---
- Subjective Date: 02/22/20 Time: 09:00 Interval history: Feels ok other than weakness. No CP, SOB or palpitations. HR 70-110bpm over last 24 hours. - Review of Systems General: denies: fever/chills, weight/appetite/sleep changes, night sweats, fatigue Respiratory: denies: cough, congestion, shortness of breath, exercise intoleran ce Cardiovascular: denies: chest pain, palpitation, edema, paroxysmal nocturnal dyspnea, orthopnea Gastrointestinal: denies: nausea, vomiting, diarrhea, constipation, abd pain, GI bleeding Musculoskeletal: denies: pain, tenderness, stiffness, swelling, arthritis/arthralgias Neurological: reports: numbness, weakness - Objective Allergies/Adverse Reactions: Allergies Allergy/AdvReac Type Severity Reaction Status Date / Time No Known Drug Allergies Allergy Verified 02/19/20 09:32 Visit Medications: Current Medications Acetaminophen (Acetaminophen 325 Mg Tab) 650 mg PO Q4H PRN PRN Reason: Headache/Fever/Mild Pain (1-3) Last Admin: 02/21/20 16:21 Dose: 650 mg Documented by: Hydrocodone Bitart/Acetaminophen (Hydrocodone/Acetaminophen 5/325 Mg Tablet) 1 tab PO Q4H PRN PRN Reason: Moderate Pain (4-6) Azathioprine (Azathioprine 50 Mg Tab) 50 mg PO BID [facility] Last Admin: 02/22/20 08:45 Dose: 50 mg Documented by: Benzonatate (Benzonatate 100 Mg Cap) 100 mg PO Q6H PRN PRN Reason: Cough Bisacodyl (Bisacodyl 10 Mg Supp) 10 mg [place] DAILYPRN PRN PRN Reason: Constipation Calcium Carbonate (Calcium Carbonate 500 Mg Chewtab) 1,000 mg PO Q4H PRN PRN Reason: Heartburn or Indigestion Dextrose/Water (Dextrose 50% Abboject 50 Ml Syringe) 25 gm SLOW IVP PRN PRN PRN Reason: Hypoglycemia Enoxaparin Sodium (Enoxaparin Sodium 40 Mg/0.4 Ml Syringe) 40 mg SC 0900 [facility] Last Admin: 02/22/20 08:47 Dose: 40 mg Documented by: Ferrous Gluconate (Ferrous Gluconate 324 Mg Tab) 324 mg PO DAILY [facility] Last Admin: 02/22/20 08:46 Dose: 324 mg Documented by: Fluoxetine HCl (Fluoxetine Hcl 20 Mg Cap) 20 mg PO DAILY [facility] Last Admin: 02/22/20 08:46 Dose: 20 mg Documented by: Glucagon (Glucagon 1 Mg/Ml Vial) 1 mg IM PRN PRN PRN Reason: Hypoglycemia Guaifenesin (Diabetic Tussin 200 Mg/10 Ml Udcup) 200 mg PO Q4H PRN PRN Reason: Cough Guaifenesin/Dextromethorphan (Guaifenesin Dm 100-10/5 Ml Udcup) 15 ml PO Q4H PRN PRN Reason: Cough Hydralazine HCl (Hydralazine 20 Mg/Ml Vial) 10 mg SLOW IVP Q4H PRN PRN Reason: SBP > 180 and HR < 70 Dextrose/Water (D5w) 1,000 mls @ 0 mls/hr IV .Q0M PRN PRN Reason: Hypoglycemia Insulin Human Lispro (Humalog 300 Units/3 Ml Vial) 0 units SC .MODERATE SLIDING SC PRN PRN Reason: Moderate Correctional Scale Insulin Human Lispro (Humalog 300 Units/3 Ml Vial) 0 units SC .BEDTIME SLIDING SC PRN PRN Reason: Bedtime Correctional Scale Levothyroxine Sodium (Levothyroxine Sodium 100 Mcg Tab) 100 mcg PO 0600 [facility] Last Admin: 02/22/20 05:21 Dose: 100 mcg Documented by: Lisinopril (Lisinopril 20 Mg Tab) 20 mg PO DAILY [facility] Last Admin: 02/22/20 08:46 Dose: 20 mg Documented by: Loperamide HCl (Loperamide Hcl 2 Mg Cap) 2 mg PO PRN PRN PRN Reason: Diarrhea/Loose Stools Loratadine (Loratadine 10 Mg Tab) 10 mg PO DAILYPRN PRN PRN Reason: Sinus Symptoms Lorazepam (Lorazepam 0.5 Mg Tab) 0.5 mg PO TIDPRN PRN PRN Reason: Anxiety Last Admin: 02/21/20 21:00 Dose: 0.5 mg Documented by: Metformin HCl (Metformin 500 Mg Tab) 1,000 mg PO DAILY [facility] Last Admin: 02/22/20 08:46 Dose: 1,000 mg Documented by: Miscellaneous Medication (Empagliflozin 25 Mg Tab) 25 mg PO DAILY [facility] Last Admin: 02/22/20 08:46 Dose: 25 mg Documented by: Ondansetron HCl (Ondansetron Pf 4 Mg/2 Ml Vial) 4 mg IVP Q6H PRN PRN Reason: Nausea/Vomiting Ondansetron HCl (Ondansetron Odt 4 Mg Tab) 4 mg PO Q6H PRN PRN Reason: Nausea/Vomiting Pantoprazole Sodium (Pantoprazole 40 Mg Tab) 40 mg PO DAILY [facility] Last Admin: 02/22/20 08:46 Dose: 40 mg Documented by: Trulicity ( Dulaglutide) 0.75 Mg Pen 0.75 each SC Q7D [facility] Last Admin: 02/20/20 22:40 Dose: 0.75 each Documented by: Prednisone (Prednisone 20 Mg Tab) 20 mg PO QAM-WM [facility] Last Admin: 02/22/20 08:46 Dose: 20 mg Documented by: Pyridostigmine [place] (Pyridostigmine [place] Ir 60 Mg Tab) 90 mg PO Q6HR [facility] Last Admin: 02/22/20 05:21 Dose: 90 mg Documented by: Rosuvastatin Calcium (Rosuvastatin 10 Mg Tab) 10 mg PO HS [facility] Last Admin: 02/21/20 21:00 Dose: 10 mg Documented by: Senna/Docusate Sodium (Senokot S 8.6-50 Mg Tab) 2 tab PO BID PRN PRN Reason: Constipation Sodium Chloride (Sodium Chloride 0.65% Nasal 44 Ml Bot) 0 ml EA NARE QIDPRN PRN PRN Reason: Nasal Congestion Throat Lozenges (Cepastat Lozenges 1 Taqueria) 1 taqueria PO Q2H PRN PRN Reason: Sore Throat Zolpidem Tartrate (Zolpidem Tartrate 5 Mg Tab) 5 mg PO HSPRN PRN PRN Reason: Insomnia Vital Signs & Weight: Vital Signs Temp Pulse Resp BP Pulse Ox 02/22/20 03:48 98.2 F 82 20 103/64 97 02/22/20 00:10 107 H Weight 175 lb - Physical Exam General: alert & oriented x3, appears well, no apparent distress HEENT: mucus membranes moist Neck: supple neck Cardiac: regular rate and rhythm Lungs: clear to auscultation Neuro: grossly intact Abdomen: soft Extremities: no edema Musculoskeletal: no pain - Labs Result Diagrams: 02/22/20 04:32 02/22/20 04:32 Troponin/CKMB Troponin I Less than 0.010 ng/mL (< 0.028) 02/18/20 13:19 - Assessment/Plan Assessment/Plan: 1. MG 2. Sinus Tach 3. Elevated TSH HR improved. At this time agree with decreased Synthroid dosage. Will place EVR and ok for discharge from my standpoint. No bblocker at this time.
[2020-02-22 09:50] VITALS: BP 106/73; TEMP 98.5
== END 2020-02-22 11:58 | disposition home or self-care (01) | DRG 57 ==
LOC: ERS 12:17 → ERHOLD 18:12 → 2NO 02-19 09:55
PROVIDERS: ADMIT Internal Medicine; ATTEND Internal Medicine
DX: G70.01 Myasthenia gravis with (acute) exacerbation (principal); Z20.822 Contact with and (suspected) exposure to COVID-19; E11.9 Type 2 diabetes mellitus without complications; I10 Essential (primary) hypertension; E03.9 Hypothyroidism, unspecified; F17.210 Nicotine dependence, cigarettes, uncomplicated; R00.0 Tachycardia, unspecified; Z79.890 Hormone replacement therapy; Z79.52 Long term (current) use of systemic steroids; Z79.899 Other long term (current) drug therapy; Z79.84 Long term (current) use of oral hypoglycemic drugs
CPT/HCPCS: 36415; 36416; 71045; 80048; 80053; 82550; 83735; 84100; 84439; 84443; 84481; 84484; 85025; 86140; 87635; 93005; 93306; 94760; 96374; 96375; J1568; J1650; J2060; J2930; J7500; J7512; U0003

== ENCOUNTER 2020-04-11 21:20 | Inpatient (IN) | payer BC ==
[2020-04-11 22:02] LABS: #Lymphocytes 0.3 thou/uL (1.20-3.40); #Monocytes 0.2 thou/uL (0.11-0.59); #Neutrophils 7.4 thou/uL (1.40-6.50); %Monocytes 2.2 % (0.0-10.0); %Neutrophils 93.8 % (42.0-75.0); Hemoglobin 11.3 g/dL (12.0-16.0); Mean Corpuscular Volume 93.7 fL (78.0-98.0); Mean Platelet Volume 6.6 fL (7.4-10.4); Platelet Count 450 thou/uL (130-400); RBC Distribution Width 16.6 % (11.5-14.5); Red Blood Cell (RBC) Count 3.77 mill/uL (4.20-5.40); White Blood Cell (WBC) Count 7.9 thou/uL (4.8-10.8)
--- NOTE | 2020-04-11 22:03 | RAD ---
Chest AP view INDICATION: History of fall; myasthenia gravis; numbness in the legs COMPARISON: Prior exam dated February 18, 2020 FINDINGS: Lungs: The lungs are clear Cardiac silhouette: The cardiomediastinal silhouette appears within normal limits. Pulmonary vasculature: Normal Pleural spaces: No pleural effusion or pneumothorax is demonstrated. Upper abdomen: No abnormality seen. Osseous structures: No acute osseous abnormality. Additional findings: None. IMPRESSION: No acute cardiopulmonary abnormality.
[2020-04-11 22:22] LABS: ALT (SGPT) 15 U/L (8-55); AST (SGOT) 17 U/L (5-34); Alkaline Phosphatase 47 U/L (40-110); Anion Gap 16 mmol/L (10-20); BUN (Urea Nitrogen) 17 mg/dL (7.0-18.7); Bilirubin, Total 0.3 mg/dL (0.2-1.2); Calc. Creatinine Clearance 0 mL/min (70-130); Calcium 9.1 mg/dL (7.8-10.44); Carbon Dioxide 21 mmol/L (22-29); Chloride 106 mmol/L (98-107); Globulin 2.9 g/dL (2.4-3.5); Glucose 310 mg/dL (70-105); Potassium 4.3 mmol/L (3.5-5.1); Protein, Total 6.9 g/dL (6.0-8.3); Sodium 139 mmol/L (136-145)
[2020-04-11 23:02] LABS: Bilirubin Negative (Negative); Blood, Urine Negative (Negative); Clarity Clear (Clear); Glucose, Urine (Dipstick) Greater than 1000 mg/dL (Negative); Ketone, Urine 10 mg/dL (Negative); Leukocyte 25 Leu/uL (Negative); Nitrite Negative (Negative); Protein, Urine (Dipstick) Negative (Neg-Trace); RBC/HPF 0-3 HPF (0-3); Specific Gravity, Urine 1.038 (1.002-1.036); Squamous Epithelial 0-3 HPF (0-3); Urobilinogen Normal mg/dL (Less than 2); WBC/HPF 21-50 HPF (0-3); pH, Urine 5.5 (5.0-9.0)
[2020-04-11 23:10] LABS: Bacteria/HPF 3+ HPF (None Seen)
[2020-04-11 23:16] LABS: Yeast-Budding 2+ HPF (None Seen)
[2020-04-12] MEDS ORDERED: OCTAGAM 10% 60 GM in Admixture Fee 1 EACH IVPB SCH (01:00)
[2020-04-12] MEDS ORDERED: cefTRIAXone\\ROCEPHIN 1 GM VIAL ONE (01:08)
[2020-04-12] MEDS ORDERED: Dextrose 5% in Water 1,000 ML IV PRN (01:27)
[2020-04-12] MEDS ORDERED: HumaLOG 300 UNITS/3 ML VIAL SC PRN (01:27)
[2020-04-12] MEDS ORDERED: Dextrose 50% Abboject 50 ML SYRINGE SLOW IVP PRN (01:27)
[2020-04-12 01:33] VITALS: BMI 30.5
[2020-04-12] MEDS ORDERED: Ondansetron PF 4 MG/2 ML Vial IVP PRN (02:14)
[2020-04-12] MEDS ORDERED: Promethazine HCl 12.5 MG in Sodium Chloride 0.9% 50 ML IVPB PRN (02:14)
[2020-04-12] MEDS ORDERED: Guaifenesin DM 100-10/5 ML UDCUP PO PRN (02:14)
[2020-04-12] MEDS ORDERED: cloNIDine 0.1 MG TAB PO PRN (02:14)
[2020-04-12] MEDS ORDERED: hydrALAZINE 20 MG/ML VIAL SLOW IVP PRN (02:14)
[2020-04-12] MEDS ORDERED: HYDROcodone/Acetaminophen 5/325 mg Tablet PO PRN (02:14)
[2020-04-12] MEDS ORDERED: Labetalol HCl 100 MG/20 ML VIAL SLOW IVP PRN (02:14)
[2020-04-12] MEDS ORDERED: Lorazepam 0.5 MG TAB PO PRN (02:15)
[2020-04-12] MEDS ORDERED: Electrolyte Replacement Protocol 1 EACH FS SCH (02:15)
--- NOTE | 2020-04-12 02:23 | PDOC.HHP ---
Hospitalist HPI Weakness History of Present Illness: Patient is a 49 year old female with PMH myasthenia gravis, DM who presents to ED for weakness. Patient has been ill last few weeks, with UTI 2 weeks ago and a self=limited gastroenteritis last week. For the last 24 hours, however, patient has developed extreme global weakness similar to prior myasthenia gravis flares, she has been unable to ascend stairs in her home. She has fallen 4 times in last 24 hours. Patient has a neurologist she sees in [place], she actually saw him in last 24 hours, with no changes in management made. Patient is a on chronic steroids w/ PO prednisone daily as well as imuran and pyridostygmine. ED physician called patient's neurologist who recommended IVIG and in person neurology consultation in AM, IV IG ordered in ED. Patient admitted for further workup and care. Allergies/Adverse Reactions: Allergy/AdvReac Type Severity Reaction Status Date / Time No Known Drug Allergies Allergy Verified 02/19/20 09:32 Home Medications: Medication Instructions Recorded Confirmed Type Dulaglutide [Trulicity] 0.75 mg SC Q7D 01/15/20 02/19/20 History Ergocalciferol (Vitamin D2) 50,000 unit PO DAILY 01/15/20 02/19/20 History [Vitamin D2] FLUoxetine HCl [Prozac] 20 mg PO DAILY 01/15/20 02/19/20 History Ferrous Gluconate [Fergon] 324 mg PO DAILY 01/15/20 02/19/20 History Rosuvastatin [Crestor] 10 mg PO DAILY 01/15/20 02/19/20 History metFORMIN [Glucophage] 500 mg PO DAILY 01/15/20 02/19/20 History predniSONE 20 mg PO QAM-WM #15 tab 01/18/20 02/19/20 Rx Canagliflozin [Invokana] 300 mg PO DAILY 02/07/20 02/19/20 History Lisinopril 20 mg PO DAILY 02/07/20 02/19/20 History Levothyroxine Sodium [Synthroid] 100 mcg PO 0600 #30 tab 02/22/20 Rx Lorazepam [Ativan] 0.5 mg PO BID PRN #0 02/22/20 02/19/20 Rx Pyridostigmine [place] [Mestinon] 90 mg PO Q6HR tab 02/22/20 Rx azaTHIOprine [Imuran] 50 mg PO BID tab 02/22/20 Rx Past History: PMH: HTN, DM 2,hypothyroidism, ocular myasthenia. PSH: C section x 2 Psychiatric history: depression Social history: denies drugs, tobacco. Drinks less than 5 drinks daily but does drink everyday Hospitalist HPI ROS Constitutional: reports: weakness, malaise. denies: fever, chills, sweats, other Eyes: denies: pain, vision change, conjunctivae inflammation, eyelid inflammation, redness, other ENT: denies: ear pain, ear discharge, nose pain, nose discharge, nose congestion, mouth pain, mouth swelling, throat pain, throat swelling, other Respiratory: denies: cough, dry, shortness of breath, hemoptysis, SOB with excertion, pleuritic pain, sputum, wheezing, other Cardiovascular: denies: chest pain, palpitations, orthopnea, paroxysmal noc. dyspnea, edema, light headedness, other Gastrointestinal: denies: nausea, vomiting, abdominal pain, diarrhea, constipation, melena, hematochezia, other Genitourinary: denies: dysuria, frequency, incontinence, hematuria, retention, other Musculoskeletal: denies: neck pain, shoulder pain, arm pain, back pain, hand pain, leg pain, foot pain, other Skin: denies: rash, lesions, yahaira, bruising, other Neurological: denies: weakness, numbness, incoordination, change in speech, confusion, seizures, other All other systems reviewed; all pertinent +/- noted in HPI/Subj Hospitalist Exam Vitals: Vital Signs (12 hours) Temp Pulse Resp BP Pulse Ox 04/12/20 00:21 98.1 F 69 19 135/91 H 96 Weight Weight 177 lb 15.314 oz General Appearance: NAD, awake alert General - other findings: global weakness Eye: PERRL, anicteric sclera ENT: normocephalic atraumatic, no oropharyngeal lesions, moist mucosa Neck: supple, symmetric, no JVD, no thyromegaly, no lymphadenopathy, no carotid bruit Heart: RRR, no murmur, no gallops, no rubs, normal peripheral pulses Respiratory: CTAB, no wheezes, no rales, no ronchi, normal chest expansion, no tachypnea, normal percussion Gastrointestinal: soft, non-tender, non-distended, normal bowel sounds, no palpable masses, no hepatomegaly, no splenomegaly, no bruit Extremities: no cyanosis, no clubbing, no edema Skin: normal turgor, no lesions, no rashes Neurological: cranial nerve grossly intact, normal sensation to touch, no weakness, no focal deficits, no new deficit Musculoskeletal: normal tone, no muscle wasting, generalized weakness Psychiatric: normal affect, normal behavior, A&O x 3 Hospitalist Results Result Diagrams: 04/11/20 21:52 04/11/20 21:52 Lab results: Laboratory Last Values WBC 7.9 thou/uL (4.8-10.8) 04/11/20 21:52 RBC 3.77 mill/uL (4.20-5.40) L 04/11/20 21:52 Hgb 11.3 g/dL (12.0-16.0) L 04/11/20 21:52 Hct 35.4 % (36.0-47.0) L 04/11/20 21:52 MCV 93.7 fL (78.0-98.0) 04/11/20 21:52 MCH 30.0 pg (27.0-31.0) 04/11/20 21:52 MCHC 32.0 g/dL (32.0-36.0) 04/11/20 21:52 RDW 16.6 % (11.5-14.5) H 04/11/20 21:52 Plt Count 450 thou/uL (130-400) H 04/11/20 21:52 MPV 6.6 fL (7.4-10.4) L 04/11/20 21:52 Neutrophils % 93.8 % (42.0-75.0) H 04/11/20 21:52 Lymphocytes % 4.0 % (21.0-51.0) L 04/11/20 21:52 Monocytes % 2.2 % (0.0-10.0) 04/11/20 21:52 Eosinophils % 0.0 % (0.0-10.0) 04/11/20 21:52 Basophils % 0.0 % (0.0-1.0) 04/11/20 21:52 Neutrophils # 7.4 thou/uL (1.40-6.50) H 02/24/21 21:52 Lymphocytes # 0.3 thou/uL (1.20-3.40) L 04/11/20 21:52 Monocytes # 0.2 thou/uL (0.11-0.59) 04/11/20 21:52 Eosinophils # 0.0 thou/uL (0.0-0.7) 04/11/20 21:52 Basophils # 0.0 thou/uL (0.0-0.2) 04/11/20 21:52 Sodium 139 mmol/L (136-145) 04/11/20 21:52 Potassium 4.3 mmol/L (3.5-5.1) 04/11/20 21:52 Chloride 106 mmol/L (98-107) 04/11/20 21:52 Carbon Dioxide 21 mmol/L (22-29) L 04/11/20 21:52 Anion Gap 16 mmol/L (10-20) 04/11/20 21:52 BUN 17 mg/dL (7.0-18.7) 04/11/20 21:52 Creatinine 0.73 mg/dL (0.6-1.1) 04/11/20 21:52 Estimated GFR (MDRD) 85 04/11/20 21:52 Glucose 310 mg/dL (70-105) H 04/11/20 21:52 Calcium 9.1 mg/dL (7.8-10.44) 04/11/20 21:52 Total Bilirubin 0.3 mg/dL (0.2-1.2) 04/11/20 21:52 AST 17 U/L (5-34) 04/11/20 21:52 ALT 15 U/L (8-55) 04/11/20 21:52 Alkaline Phosphatase 47 U/L (40-110) 04/11/20 21:52 Troponin I Less than 0.010 ng/mL (< 0.028) 04/11/20 21:52 Serum Total Protein 6.9 g/dL (6.0-8.3) 04/11/20 21:52 Albumin 4.0 g/dL (3.5-5.0) 04/11/20 21:52 Globulin 2.9 g/dL (2.4-3.5) 04/11/20 21:52 Albumin/Globulin Ratio 1.4 g/dL (1.2-2.2) 04/11/20 21:52 Urine Color Light-Yellow (Yellow) 04/11/20 22:20 Urine Clarity Clear (Clear) 04/11/20 22:20 Urine pH 5.5 (5.0-9.0) 04/11/20 22:20 Ur Specific [place] 1.038 (1.002-1.036) H 04/11/20 22:20 Urine Protein Negative mg/dL (Neg-Trace) 04/11/20 22:20 Urine Glucose (UA) Greater than 1000 mg/dL (Negative) A 04/11/20 22:20 Urine Ketones 10 mg/dL (Negative) A 04/11/20 22:20 Urine Blood Negative (Negative) 04/11/20 22:20 Urine Nitrite Negative (Negative) 04/11/20 22:20 Urine Bilirubin Negative (Negative) 04/11/20 22:20 Urine Urobilinogen Normal mg/dL (Less than 2) 04/11/20 22:20 Ur Leukocyte Esterase 25 Eliazar/uL (Negative) A 04/11/20 22:20 Urine RBC 0-3 HPF (0-3) 04/11/20 22:20 Urine WBC 21-50 HPF (0-3) A 04/11/20 22:20 Ur Squamous Epith Cells 0-3 HPF (0-3) 04/11/20 22:20 Urine Bacteria 3+ HPF (None Seen) A 04/11/20 22:20 Urine Yeast (Budding) 2+ HPF (None Seen) A 04/11/20 22:20 Additional comment: ED documents, imaging reports, labs reviewed. Hospitalist H&P A/P Plan: Patient is a 49 year old female with PMH myasthenia gravis, DM who presents to ED for weakness. # myasthenia crisis # global weakness In setting of recent illnesses (gastroenteritis and UTI). In last 24 hours, patient has developed extreme global weakness similar to prior myasthenia gravis flares, she has been unable to ascend stairs in her home. Patient has a neurologist she sees in [place], she actually saw him in last 24 hours, with no changes in management made. Patient is a on chronic steroids w/ prednisone daily. ED physician called patient's neurologist in [place] who recommended IVIG and in person neurology consultation in AM, IV IG ordered in ED. Patient admitted for further workup and care. - admit to neurology floor - IVIG ordered by ED physician - consult neurology - PT/OT - unfortunately, equipment to collect NIF/respiratory data is out of commission. will order neurochecks and patient to be watched closely in [facility] - continue imuran, pyridostigmine, octagam - stress dose steroids # chronic use of steroids - switch to stress dose steroids for now # DM - SSI Patient's neurologist in [place] Dr. Raza cell phone [phone]
[2020-04-12] MEDS ORDERED: cefTRIAXone\\ROCEPHIN 1 GM in Sodium Chloride 0.9% 100 ML IVPB SCH (03:30)
[2020-04-12] MEDS ORDERED: Hydrocortisone Sod Succ/PF 100 mg/2 ml Vial ONE (03:31)
[2020-04-12 04:15] LABS: #Lymphocytes 0.5 thou/uL (1.20-3.40); #Monocytes 0.3 thou/uL (0.11-0.59); #Neutrophils 4.3 thou/uL (1.40-6.50); %Basophils 0.2 % (0.0-1.0); %Eosinophils 0.8 % (0.0-10.0); %Lymphocytes 8.7 % (21.0-51.0); %Monocytes 6.5 % (0.0-10.0); %Neutrophils 83.7 % (42.0-75.0); Hemoglobin 9.8 g/dL (12.0-16.0); Mean Corpuscular HGB CONC 32.2 g/dL (32.0-36.0); Mean Corpuscular Hemoglobin 30.3 pg (27.0-31.0); Mean Corpuscular Volume 93.9 fL (78.0-98.0); Mean Platelet Volume 6.5 fL (7.4-10.4); Platelet Count 393 thou/uL (130-400); RBC Distribution Width 16.5 % (11.5-14.5); Red Blood Cell (RBC) Count 3.24 mill/uL (4.20-5.40); White Blood Cell (WBC) Count 5.1 thou/uL (4.8-10.8)
[2020-04-12] MEDS: Hydrocortisone Sod Succ/PF 100 mg/2 ml Vial IVP SCH ×2 (04:15→12:32)
[2020-04-12] MEDS: Sodium Chloride 0.9% 1,000 ML IV SCH ×2 (04:16→22:34)
[2020-04-12 04:41] LABS: Anion Gap 11 mmol/L (10-20); BUN (Urea Nitrogen) 13 mg/dL (7.0-18.7); Calc. Creatinine Clearance 126 mL/min (70-130); Calcium 8.6 mg/dL (7.8-10.44); Carbon Dioxide 23 mmol/L (22-29); Chloride 105 mmol/L (98-107); Glucose 114 mg/dL (70-105); Magnesium 2.1 mg/dL (1.6-2.6); Potassium 3.5 mmol/L (3.5-5.1); Sodium 135 mmol/L (136-145)
[2020-04-12 05:53] LABS: SARS-CoV-2 PCR by NAA Not Detected (NotDetected)
[2020-04-12] MEDS ORDERED: Pyridostigmine Bromide IR 60 MG TAB PO SCH ×2 (06:00→07:00)
[2020-04-12] MEDS: Acetaminophen 325 MG TAB PO PRN ×2 (06:06→21:20)
--- NOTE | 2020-04-12 08:52 | CON ---
DATE OF CONSULTATION: 04/12/2020 REASON FOR CONSULTATION: Myasthenic crisis. HISTORY OF PRESENT ILLNESS: Ms. Gamez is a pleasant 49-year-old female, whom I have had the opportunity to see in the past. She has myasthenia gravis. She saw her neurologist yesterday and was doing well, but shortly after when she got home, she noticed she was having trouble climbing stairs. She called her neurologist, who stated she was probably having a flare of her myasthenia gravis and ask her to come to the emergency room so that she can be admitted and started on IVIG. PAST MEDICAL HISTORY: 1. Hypertension. 2. Myasthenia gravis. 3. Diabetes mellitus, type 2. 4. Hypothyroidism. PAST SURGICAL HISTORY: . FAMILY MEDICAL HISTORY: Unremarkable. SOCIAL HISTORY: She works as an never smoker. Does not consume much alcohol. Does not use illicit drugs. MEDICATIONS: 1. For myasthenia, she takes Mestinon 120 mg 4 times daily. 2. Prednisone 20 mg daily. 3. Imuran 50 mg twice daily. Additionally, she takes; 1. Rosuvastatin 10 mg daily. 2. Ativan 0.5 mg b.i.d. as needed. 3. Lisinopril 20 mg daily. 4. Levothyroxine 100 mcg daily. 5. Prozac 20 mg daily. 6. Metformin 500 mg daily. 7. Iron sulfate 324 mg daily. 8. Vitamin B2 of 50,000 units daily. 9. Trulicity 0.75 mg subcu every 7 days. 10. Invokana 300 mg daily. ALLERGIES: NONE. REVIEW OF SYSTEMS: The weakness is now resolved after one bag of IVIG. She has no fever, chills, nausea, vomiting, hematemesis, melena, hematochezia, hematuria, or dysuria. PHYSICAL EXAMINATION: VITAL SIGNS: Temperature 98.1, pulse 62, blood pressure 118/76, and O2 saturation 95%. GENERAL: She is awake and alert, in no acute distress. HEENT: Pupils are reactive. Extraocular movements are intact. Tongue protrudes midline. NECK: No adenopathy or JVD. LUNGS: Clear to auscultation. CARDIAC: S1 and S2. Regular without murmur. ABDOMEN: Soft and nontender to palpation. EXTREMITIES: No clubbing or cyanosis. NEUROLOGICAL: She has no focal weakness at this time except for slight weakness in the right arm on exam. LABORATORY DATA: White blood cell count 5.1, hematocrit 30, and platelet count 393. Sodium 135, potassium 3.5, chloride 105, CO2 of 23, BUN 13, creatinine 0.6, and glucose 114. Urinalysis showed glycosuria. COVID test was negative. IMAGING DATA: Chest x-ray shows no mass, effusion, or infiltrate. ASSESSMENT: 1. Myasthenia with crisis. 2. Other medical problems listed above. PLAN: 1. She has improved so far with the IVIG. 2. Agree with the steroids. 3. Continue the Imuran. 4. Neurology consult to see how much longer she needs the IVIG. From my standpoint, she can be transferred out to the stroke floor or the telemetry floor as she does not need Critical Care Services at this time. Job ID: [id number]
[2020-04-12] MEDS: Levothyroxine Sodium 100 MCG TAB PO SCH (08:59)
[2020-04-12] MEDS ORDERED: Insulin Glargine 5 UNITS in Pre-Filled Syringe 1 EACH SC SCH ×2 (09:00→09:30)
[2020-04-12] MEDS ORDERED: Fluconazole 100 MG TAB PO SCH (09:00)
[2020-04-12] MEDS: azaTHIOprine 50 MG TAB PO SCH ×2 (09:07→21:17)
[2020-04-12] MEDS: Lisinopril 20 MG TAB PO SCH (09:07)
[2020-04-12] MEDS: Rosuvastatin 10 MG TAB PO SCH (09:07)
[2020-04-12] MEDS: FLUoxetine HCl 20 MG CAP PO SCH (09:07)
[2020-04-12] MEDS ORDERED: Potassium Chloride 20 MEQ TAB PO SCH (09:15)
[2020-04-12 10:15] LABS: Free T4 (Free Thyroxine) 1.06 ng/dL (0.70-1.48); Thyroid Stimulating Hormone 0.3986 uIU/mL (0.35-4.94)
[2020-04-12] MEDS: Pyridostigmine Bromide IR 60 MG TAB PO SCH ×2 (12:32→18:19)
--- NOTE | 2020-04-12 13:34 | CON ---
NEUROLOGY CONSULTATION DATE OF CONSULTATION: 04/12/2020 REASON FOR CONSULTATION: Generalized weakness/myasthenia gravis exacerbation. HISTORY OF PRESENT ILLNESS: Ms. Arlene Gamez is a 49-year-old female with medical history significant for myasthenia gravis, diabetes mellitus, presented to the emergency room after a fall and generalized weakness. The patient has been ill for the last few weeks with a urinary tract infection and self-limited gastroenteritis, but during the last 24 hours, she developed extreme generalized weakness, which was similar to a prior myasthenia gravis flares and sustained a fall. She saw her neurologist yesterday in [place], who advised her to come to the emergency room for further management and possible treatment with IVIG. The patient is on chronic steroids with p.o. prednisone as well Mestinon and Imuran. According to the patient, the ED physician did call the patient's neurologist in [place] who recommended IVIG and an admission to the hospital for further monitoring. Allergies/Adverse Reactions: Allergy/AdvReac Type Severity Reaction Status Date / Time No Known Drug Allergies Allergy Verified 02/19/20 09:32 Home Medications: Medication Instructions Recorded Confirmed Type Dulaglutide [Trulicity] 0.75 mg SC Q7D 01/15/20 02/19/20 History Ergocalciferol (Vitamin D2) 50,000 unit PO DAILY 01/15/20 02/19/20 History [Vitamin D2] FLUoxetine HCl [Prozac] 20 mg PO DAILY 01/15/20 02/19/20 History Ferrous Gluconate [Fergon] 324 mg PO DAILY 01/15/20 02/19/20 History Rosuvastatin [Crestor] 10 mg PO DAILY 01/15/20 02/19/20 History metFORMIN [Glucophage] 500 mg PO DAILY 01/15/20 02/19/20 History predniSONE 20 mg PO QAM-WM #15 tab 01/18/20 02/19/20 Rx Canagliflozin [Invokana] 300 mg PO DAILY 02/07/20 02/19/20 History Lisinopril 20 mg PO DAILY 02/07/20 02/19/20 History Levothyroxine Sodium [Synthroid] 100 mcg PO 0600 #30 tab 02/22/20 Rx Lorazepam [Ativan] 0.5 mg PO BID PRN #0 02/22/20 02/19/20 Rx Pyridostigmine [place] [Mestinon] 90 mg PO Q6HR tab 02/22/20 Rx azaTHIOprine [Imuran] 50 mg PO BID tab 02/22/20 Rx REVIEW OF SYSTEMS Constitutional: reports: weakness, malaise. denies: fever, chills, sweats, other Eyes: denies: pain, vision change, conjunctivae inflammation, eyelid inflammation, redness, other ENT: denies: ear pain, ear discharge, nose pain, nose discharge, nose congestion, mouth pain, mouth swelling, throat pain, throat swelling, other Respiratory: denies: cough, dry, shortness of breath, hemoptysis, SOB with excertion, pleuritic pain, sputum, wheezing, other Cardiovascular: denies: chest pain, palpitations, orthopnea, paroxysmal noc. dyspnea, edema, light headedness, other Gastrointestinal: denies: nausea, vomiting, abdominal pain, diarrhea, constipation, melena, hematochezia, other Genitourinary: denies: dysuria, frequency, incontinence, hematuria, retention, other Musculoskeletal: denies: neck pain, shoulder pain, arm pain, back pain, hand pain, leg pain, foot pain, other Skin: denies: rash, lesions, yahaira, bruising, other Neurological: denies: weakness, numbness, incoordination, change in speech, confusion, seizures, other All other systems reviewed; all pertinent +/- noted in HPI/Subj Vital Signs (12 hours) Temp Pulse Resp BP Pulse Ox 04/12/20 00:21 98.1 F 69 19 135/91 H 96 Weight Weight 177 lb 15.314 oz PHYSICAL EXAMINATION: General Appearance: NAD, awake alert Eye: PERRL, anicteric sclera ENT: normocephalic atraumatic, no oropharyngeal lesions, moist mucosa Neck: supple, symmetric, no JVD, no thyromegaly, no lymphadenopathy, no carotid bruit Heart: RRR, no murmur, no gallops, no rubs, normal peripheral pulses Respiratory: CTAB, no wheezes, no rales, no ronchi, normal chest expansion, no tachypnea, normal percussion Gastrointestinal: soft, non-tender, non-distended, normal bowel sounds, no palpable masses, no hepatomegaly, no splenomegaly, no bruit Extremities: no cyanosis, no clubbing, no edema Skin: normal turgor, no lesions, no rashes Neurological: Mental status, the patient is alert and oriented to person, place, and time. Speech is clear. Cranial nerves 2 through 12 intact. Motor, muscle tone and bulk are normal. Strength, 4/5 bilaterally. Sensory intact. Cerebellar, finger-nose testing intact. Gait deferred due to patient's safety reason. PAST MEDICAL HISTORY: Hypertension, diabetes mellitus, hypothyroidism, myasthenia. PAST SURGICAL HISTORY: sections x2. PSYCHIATRIC HISTORY: Depression. SOCIAL HISTORY: The patient denies drugs, smoking, but drinks five drinks daily. DATA REVIEWED: I reviewed the labs which was significant for UTI and hyperglycemia. WBC 7.9 thou/uL (4.8-10.8) 04/11/20 21:52 RBC 3.77 mill/uL (4.20-5.40) L 04/11/20 21:52 Hgb 11.3 g/dL (12.0-16.0) L 04/11/20 21:52 Hct 35.4 % (36.0-47.0) L 04/11/20 21:52 MCV 93.7 fL (78.0-98.0) 04/11/20 21:52 MCH 30.0 pg (27.0-31.0) 04/11/20 21:52 MCHC 32.0 g/dL (32.0-36.0) 04/11/20 21:52 RDW 16.6 % (11.5-14.5) H 04/11/20 21:52 Plt Count 450 thou/uL (130-400) H 04/11/20 21:52 MPV 6.6 fL (7.4-10.4) L 04/11/20 21:52 Neutrophils % 93.8 % (42.0-75.0) H 04/11/20 21:52 Lymphocytes % 4.0 % (21.0-51.0) L 04/11/20 21:52 Monocytes % 2.2 % (0.0-10.0) 04/11/20 21:52 Eosinophils % 0.0 % (0.0-10.0) 04/11/20 21:52 Basophils % 0.0 % (0.0-1.0) 04/11/20 21:52 Neutrophils # 7.4 thou/uL (1.40-6.50) H 04/11/20 21:52 Lymphocytes # 0.3 thou/uL (1.20-3.40) L 04/11/20 21:52 Monocytes # 0.2 thou/uL (0.11-0.59) 04/11/20 21:52 Eosinophils # 0.0 thou/uL (0.0-0.7) 04/11/20 21:52 Basophils # 0.0 thou/uL (0.0-0.2) 04/11/20 21:52 Sodium 139 mmol/L (136-145) 04/11/20 21:52 Potassium 4.3 mmol/L (3.5-5.1) 04/11/20 21:52 Chloride 106 mmol/L (98-107) 04/11/20 21:52 Carbon Dioxide 21 mmol/L (22-29) L 04/11/20 21:52 Anion Gap 16 mmol/L (10-20) 04/11/20 21:52 BUN 17 mg/dL (7.0-18.7) 04/11/20 21:52 Creatinine 0.73 mg/dL (0.6-1.1) 04/11/20 21:52 Estimated GFR (MDRD) 85 04/11/20 21:52 Glucose 310 mg/dL (70-105) H 04/11/20 21:52 Calcium 9.1 mg/dL (7.8-10.44) 04/11/20 21:52 Total Bilirubin 0.3 mg/dL (0.2-1.2) 04/11/20 21:52 AST 17 U/L (5-34) 04/11/20 21:52 ALT 15 U/L (8-55) 04/11/20 21:52 Alkaline Phosphatase 47 U/L (40-110) 04/11/20 21:52 Troponin I Less than 0.010 ng/mL (< 0.028) 04/11/20 21:52 Serum Total Protein 6.9 g/dL (6.0-8.3) 04/11/20 21:52 Albumin 4.0 g/dL (3.5-5.0) 04/11/20 21:52 Globulin 2.9 g/dL (2.4-3.5) 04/11/20 21:52 Albumin/Globulin Ratio 1.4 g/dL (1.2-2.2) 04/11/20 21:52 Urine Color Light-Yellow (Yellow) 04/11/20 22:20 Urine Clarity Clear (Clear) 04/11/20 22:20 Urine pH 5.5 (5.0-9.0) 04/11/20 22:20 Ur Specific [place] 1.038 (1.002-1.036) H 04/11/20 22:20 Urine Protein Negative mg/dL (Neg-Trace) 04/11/20 22:20 Urine Glucose (UA) Greater than 1000 mg/dL (Negative) A 04/11/20 22:20 Urine Ketones 10 mg/dL (Negative) A 04/11/20 22:20 Urine Blood Negative (Negative) 04/11/20 22:20 Urine Nitrite Negative (Negative) 04/11/20 22:20 Urine Bilirubin Negative (Negative) 04/11/20 22:20 Urine Urobilinogen Normal mg/dL (Less than 2) 04/11/20 22:20 Ur Leukocyte Esterase 25 Eliazar/uL (Negative) A 04/11/20 22:20 Urine RBC 0-3 HPF (0-3) 04/11/20 22:20 Urine WBC 21-50 HPF (0-3) A 04/11/20 22:20 Ur Squamous Epith Cells 0-3 HPF (0-3) 04/11/20 22:20 Urine Bacteria 3+ HPF (None Seen) A 04/11/20 22:20 Urine Yeast (Budding) 2+ HPF (None Seen) A 04/11/20 22:20 ASSESSMENT AND PLAN: Ms. Arlene Gamez is a 49-year-old female with a significant for myasthenia gravis, diabetes mellitus, presented with myasthenia gravis exacerbation characterized by generalized weakness and fall falls. Most likely recent exacerbation is due to urinary tract infection. Start IVIG 0.4 g/kg and q.24 hours for 3 days. Monitor respiratory status including NIF. Neuro checks every 2 hours. Continue pyridostigmine, Mestinon and steroids - home doses. Continue home medications. Strict control of blood glucose. Continue medical management per primary team. We will continue to follow. Plan discussed in detail with the patient. Thank you for the consult. Job ID: [id number] [facility]
--- NOTE | 2020-04-12 15:42 | PDOC.HOSPP ---
- Subjective Encounter Date: 04/12/20 Encounter Time: 11:45 Subjective: no sob or trouble breathing, has not ambulated yet in icu so far no trouble moving her eyelids or extremities - Objective Vital Signs & Weight: Vital Signs (12 hours) Temp BP Pulse Ox 04/12/20 12:00 98.5 F 04/12/20 09:07 119/66 04/12/20 08:00 97.9 F 96 Weight Weight 177 lb 15.314 oz Most Recent Monitor Data Heart Rate from ECG 72 NIBP 124/78 NIBP BP-Mean 93 Respiration from ECG 17 SpO2 96 I&O: 04/11/20 04/12/20 04/13/20 06:59 06:59 06:59 Intake Total 740 Output Total 1050 Balance -310 Result Diagrams: 04/12/20 04:01 04/12/20 04:01 Additional Labs: Accuchecks 04/12/20 12:07 POC Glucose 110 H Hospitalist ROS - Medication Medications: Active Medications Generic Name Dose Route Start Last Admin Trade Name Thomasq PRN Reason Stop Dose Admin Acetaminophen 650 mg 04/12/20 02:14 04/12/20 06:06 Acetaminophen 325 Mg Tab PO 650 mg Q4H PRN Administration Headache/Fever/Mild Pain (1-3) Azathioprine 50 mg 04/12/20 09:00 04/12/20 09:07 Azathioprine 50 Mg Tab PO 50 mg BID LELO Administration Fluconazole 200 mg 04/12/20 09:00 04/12/20 09:07 Fluconazole 100 Mg Tab PO 200 mg DAILY LELO Administration Fluoxetine HCl 20 mg 04/12/20 09:00 04/12/20 09:07 Fluoxetine Hcl 20 Mg Cap PO 20 mg DAILY LELO Administration Sodium Chloride 1,000 mls @ 50 mls/hr 04/12/20 02:30 04/12/20 04:16 Normal Saline 0.9% IV 1,000 mls .Q20H LELO Administration Levofloxacin 250 mg/ Device 50 mls @ 100 mls/hr 04/12/20 06:00 04/12/20 06:05 IVPB 04/14/20 06:29 50 mls 0600 LELO Administration Levothyroxine Sodium 100 mcg 04/12/20 06:00 04/12/20 08:59 Levothyroxine Sodium 100 Mcg Tab PO 100 mcg 0600 LELO Administration Lisinopril 20 mg 04/12/20 09:00 04/12/20 09:07 Lisinopril 20 Mg Tab PO 20 mg DAILY LELO Administration Pantoprazole Sodium 40 mg 04/12/20 09:00 04/12/20 09:07 Pantoprazole 40 Mg Tab PO 40 mg DAILY LELO Administration Pyridostigmine [place] 120 mg 04/12/20 12:00 04/12/20 12:32 Pyridostigmine [place] Ir 60 Mg Tab PO 120 mg Q6HR LELO Administration Rosuvastatin Calcium 10 mg 04/12/20 09:00 04/12/20 09:07 Rosuvastatin 10 Mg Tab PO 10 mg DAILY LELO Administration Hospitalist Exam Vitals: Vital Signs (12 hours) Temp BP Pulse Ox 04/12/20 12:00 98.5 F 04/12/20 09:07 119/66 04/12/20 08:00 97.9 F 96 Weight Weight 177 lb 15.314 oz Most Recent Monitor Data Heart Rate from ECG 72 NIBP 124/78 NIBP BP-Mean 93 Respiration from ECG 17 SpO2 96 General Appearance: awake alert Eye: PERRL, anicteric sclera ENT: no oropharyngeal lesions, moist mucosa Neck: supple, no JVD Heart: RRR, no murmur Respiratory: no wheezes, no rales Gastrointestinal: soft, non-tender, non-distended, normal bowel sounds Extremities: no cyanosis, no edema Neurological: cranial nerve grossly intact, no focal deficits Psychiatric: normal affect, A&O x 3 Hosp A/P (1) Myasthenia exacerbation Code(s): G70.01 - MYASTHENIA GRAVIS WITH (ACUTE) EXACERBATION Status: Acute (2) UTI (urinary tract infection) Status: Acute Qualifiers: Urinary tract infection type: acute cystitis Hematuria presence: without hematuria Qualified Code(s): N30.00 - Acute cystitis without hematuria (3) Diabetes Code(s): E11.9 - TYPE 2 DIABETES MELLITUS WITHOUT COMPLICATIONS Status: Chronic Qualifiers: Diabetes mellitus type: type 2 Diabetes mellitus termination clerk insulin use: with termination clerk use Diabetes mellitus complication status: without complication Qualified Code(s): E11.9 - Type 2 diabetes mellitus without complications; 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 (4) HTN (hypertension) Code(s): I10 - ESSENTIAL (PRIMARY) HYPERTENSION Status: Chronic Qualifiers: Hypertension type: essential hypertension Qualified Code(s): I10 - Essential (primary) hypertension (5) Hypothyroidism Code(s): E03.9 - HYPOTHYROIDISM, UNSPECIFIED Status: Chronic Qualifiers: Hypothyroidism type: acquired Qualified Code(s): E03.9 - Hypothyroidism, unspecified (6) Obesity (BMI 30.0-34.9) Code(s): E66.9 - OBESITY, UNSPECIFIED Status: Chronic (7) Chronic anemia Code(s): D64.9 - ANEMIA, UNSPECIFIED Status: Chronic (8) Dyslipidemia Code(s): E78.5 - HYPERLIPIDEMIA, UNSPECIFIED Status: Chronic (9) Mood disorder Code(s): F39 - UNSPECIFIED MOOD [AFFECTIVE] DISORDER Status: Chronic - Plan admitted for suspected myasthenia gravis flare up, on ivIG for 3 days start home dose imuran, prednisone and mestinon (no diarrhea with it) is on levaquin for uti continue prozac, crestor, lisinopril, synthroid, lantus hs. dc iv fluids, is tolerating oral diet she has had nearly 3 exacerbations from dec of last year, this is her 3rd ivIG (dec, feb and now) treatment per patient. has no resp muscle compromise based on clinical exam and normal saturations. tx to stroke unit.
[2020-04-12] MEDS: Enoxaparin Sodium 40 MG/0.4 ML SYRINGE SC SCH (21:17)
[2020-04-12] MEDS: Insulin Glargine 10 UNITS in Pre-Filled Syringe 1 EACH SC SCH (22:34)
[2020-04-13] MEDS: Pyridostigmine Bromide IR 60 MG TAB PO SCH ×5 (02:15→23:17)
[2020-04-13 05:32] LABS: #Basophils 0.1 thou/uL (0.0-0.2); #Lymphocytes 2.2 thou/uL (1.20-3.40); #Monocytes 0.6 thou/uL (0.11-0.59); #Neutrophils 2.9 thou/uL (1.40-6.50); %Basophils 1.4 % (0.0-1.0); %Eosinophils 0.7 % (0.0-10.0); %Lymphocytes 37.2 % (21.0-51.0); %Monocytes 10.7 % (0.0-10.0); Hemoglobin 10.4 g/dL (12.0-16.0); Mean Corpuscular HGB CONC 32.4 g/dL (32.0-36.0); Mean Corpuscular Hemoglobin 30.4 pg (27.0-31.0); Mean Corpuscular Volume 93.7 fL (78.0-98.0); Mean Platelet Volume 6.4 fL (7.4-10.4); Platelet Count 356 thou/uL (130-400); RBC Distribution Width 16.4 % (11.5-14.5); Red Blood Cell (RBC) Count 3.44 mill/uL (4.20-5.40); White Blood Cell (WBC) Count 5.8 thou/uL (4.8-10.8)
[2020-04-13] MEDS: Levothyroxine Sodium 100 MCG TAB PO SCH (05:52)
[2020-04-13 05:54] LABS: Anion Gap 10 mmol/L (10-20); BUN (Urea Nitrogen) 12 mg/dL (7.0-18.7); Calc. Creatinine Clearance 142 mL/min (70-130); Calcium 8.6 mg/dL (7.8-10.44); Carbon Dioxide 24 mmol/L (22-29); Chloride 108 mmol/L (98-107); Glucose 86 mg/dL (70-105); Magnesium 2.1 mg/dL (1.6-2.6); Potassium 3.6 mmol/L (3.5-5.1); Sodium 138 mmol/L (136-145)
[2020-04-13] MEDS: Acetaminophen 325 MG TAB PO PRN ×3 (05:56→23:25)
--- NOTE | 2020-04-13 07:41 | PDOC.HOSPP ---
- Subjective Encounter Date: 04/13/20 Encounter Time: 10:00 Subjective: Patient still with continued generalized weakness but no other symptoms from her myasthenia gravis. - Objective Vital Signs & Weight: Vital Signs (12 hours) Temp Pulse Resp BP Pulse Ox 04/13/20 04:00 97.6 F 54 L 24 H 107/79 98 04/13/20 02:00 97.6 F 54 L 18 120/64 97 04/13/20 00:00 97.6 F 52 L 18 130/83 95 04/12/20 22:00 97.7 F 62 18 108/75 96 04/12/20 20:10 97.9 F 69 18 120/86 95 Weight Weight 177 lb 15.314 oz Most Recent Monitor Data Heart Rate from ECG 69 NIBP 124/67 NIBP BP-Mean 86 Respiration from ECG 21 SpO2 96 I&O: 04/12/20 04/13/20 04/14/20 06:59 06:59 06:59 Intake Total 2162 Output Total 2125 Balance 37 Result Diagrams: 04/13/20 05:15 04/13/20 05:15 Additional Labs: Accuchecks 04/12/20 04/12/20 04/12/20 21:26 16:12 12:07 POC Glucose 199 H 137 H 110 H Hospitalist ROS - Review of Systems Constitutional: denies: fever, chills Respiratory: denies: cough, shortness of breath Cardiovascular: denies: chest pain, palpitations Gastrointestinal: denies: nausea, vomiting, abdominal pain - Medication Medications: Active Medications Generic Name Dose Route Start Last Admin Trade Name Freq PRN Reason Stop Dose Admin Acetaminophen 650 mg 04/12/20 02:14 04/13/20 05:56 Acetaminophen 325 Mg Tab PO 650 mg Q4H PRN Administration Headache/Fever/Mild Pain (1-3) Azathioprine 50 mg 04/12/20 09:00 04/12/20 21:17 Azathioprine 50 Mg Tab PO 50 mg BID LELO Administration Enoxaparin Sodium 40 mg 04/12/20 21:00 04/12/20 21:17 Enoxaparin Sodium 40 Mg/0.4 Ml Syringe SC 40 mg 2100 LELO Administration Fluoxetine HCl 20 mg 04/12/20 09:00 04/12/20 09:07 Fluoxetine Hcl 20 Mg Cap PO 20 mg DAILY LELO Administration Insulin Glargine 10 units/ 0.1 mls @ 0 mls/hr 04/12/20 21:00 04/12/20 22:34 Miscellaneous Medication SC 0.1 mls HS LELO Administration Levothyroxine Sodium 100 mcg 04/12/20 06:00 04/13/20 05:52 Levothyroxine Sodium 100 Mcg Tab PO 100 mcg 0600 LELO Administration Lisinopril 20 mg 04/12/20 09:00 04/12/20 09:07 Lisinopril 20 Mg Tab PO 20 mg DAILY LELO Administration Pantoprazole Sodium 40 mg 04/12/20 09:00 04/12/20 09:07 Pantoprazole 40 Mg Tab PO 40 mg DAILY LELO Administration Pyridostigmine [place] 120 mg 04/12/20 12:00 04/13/20 05:52 Pyridostigmine [place] Ir 60 Mg Tab PO 120 mg Q6HR LELO Administration Rosuvastatin Calcium 10 mg 04/12/20 09:00 04/12/20 09:07 Rosuvastatin 10 Mg Tab PO 10 mg DAILY LELO Administration Hospitalist Exam Vitals: Vital Signs (12 hours) Temp Pulse Resp BP Pulse Ox 04/13/20 04:00 97.6 F 54 L 24 H 107/79 98 04/13/20 02:00 97.6 F 54 L 18 120/64 97 04/13/20 00:00 97.6 F 52 L 18 130/83 95 04/12/20 22:00 97.7 F 62 18 108/75 96 04/12/20 20:10 97.9 F 69 18 120/86 95 Weight Weight 177 lb 15.314 oz Most Recent Monitor Data Heart Rate from ECG 69 NIBP 124/67 NIBP BP-Mean 86 Respiration from ECG 21 SpO2 96 General Appearance: NAD, awake alert Eye - other findings: No ptosis ENT: moist mucosa Heart: RRR, no murmur, no gallops, no rubs Respiratory: CTAB, no wheezes, no rales, no ronchi Gastrointestinal: soft, non-tender, non-distended, normal bowel sounds Extremities: no edema Psychiatric: normal affect, normal behavior, A&O x 3 Hosp A/P - Plan (1) Myasthenia exacerbation Code(s): G70.01 - MYASTHENIA GRAVIS WITH (ACUTE) EXACERBATION Status: Acute (2) UTI (urinary tract infection) Status: Acute Qualifiers: Urinary tract infection type: acute cystitis Hematuria presence: without hematuria Qualified Code(s): N30.00 - Acute cystitis without hematuria (3) Diabetes Code(s): E11.9 - TYPE 2 DIABETES MELLITUS WITHOUT COMPLICATIONS Status: Chronic Qualifiers: Diabetes mellitus type: type 2 Diabetes mellitus longterm insulin 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 Diabetes mellitus complication status: without complication Qualified Code(s): E11.9 - Type 2 diabetes mellitus without complications; Z79.4 - [facility] (current) use of insulin (4) HTN (hypertension) Code(s): I10 - ESSENTIAL (PRIMARY) HYPERTENSION Status: Chronic Qualifiers: Hypertension type: essential hypertension Qualified Code(s): I10 - Essential (primary) hypertension (5) Hypothyroidism Code(s): E03.9 - HYPOTHYROIDISM, UNSPECIFIED Status: Chronic Qualifiers: Hypothyroidism type: acquired Qualified Code(s): E03.9 - Hypothyroidism, unspecified (6) Obesity (BMI 30.0-34.9) Code(s): E66.9 - OBESITY, UNSPECIFIED Status: Chronic (7) Chronic anemia Code(s): D64.9 - ANEMIA, UNSPECIFIED Status: Chronic (8) Dyslipidemia Code(s): E78.5 - HYPERLIPIDEMIA, UNSPECIFIED Status: Chronic (9) Mood disorder Code(s): F39 - UNSPECIFIED MOOD [AFFECTIVE] DISORDER Status: Chronic admitted for suspected myasthenia gravis flare up, on ivIG for 3 days (today is day 2/3) started home dose imuran, prednisone and mestinon (no diarrhea with it) is on levaquin for uti, day 2 of 3, e. coli in urine culture sensitive to levaquin continue prozac, crestor, lisinopril, synthroid, lantus hs. dc iv fluids, is tolerating oral diet she has had nearly 3 exacerbations from dec of last year, this is her 3rd ivIG (dec, feb and now) treatment per patient. has no resp muscle compromise based on clinical exam and normal saturations. tx to stroke unit. PT eval and txt Possibly home tomorrow if improved with treatment
[2020-04-13] MEDS: Rosuvastatin 10 MG TAB PO SCH (10:06)
[2020-04-13] MEDS: Ferrous Gluconate 324 MG TAB PO SCH (10:06)
[2020-04-13] MEDS: metFORMIN XR 500 MG TAB PO SCH (10:06)
[2020-04-13] MEDS: Fluconazole 100 MG TAB PO SCH (10:06)
[2020-04-13] MEDS: azaTHIOprine 50 MG TAB PO SCH ×2 (10:07→21:04)
[2020-04-13] MEDS: predniSONE 20 MG TAB PO SCH (10:07)
[2020-04-13] MEDS: FLUoxetine HCl 20 MG CAP PO SCH (10:08)
[2020-04-13] MEDS: Lisinopril 20 MG TAB PO SCH (10:08)
[2020-04-13] MEDS: OCTAGAM 10% 60 GM in Admixture Fee 1 EACH IVPB SCH (10:47)
--- NOTE | 2020-04-13 12:35 | PDOC.NEUPN ---
- Subjective Encounter Date: 04/13/20 Subjective: Mrs. Gamez continues to complain of generalized weakness - Objective Vital Signs & Weight: Vital Signs (12 hours) Temp Pulse Resp BP BP Pulse Ox 04/13/20 11:40 98.1 F 66 18 109/68 94 L 04/13/20 10:08 118/86 04/13/20 07:35 98.4 F 58 L 16 126/84 96 04/13/20 04:00 97.6 F 54 L 24 H 107/79 98 04/13/20 02:00 97.6 F 54 L 18 120/64 97 Weight Weight 177 lb 15.314 oz Most Recent Monitor Data Heart Rate from ECG 69 NIBP 124/67 NIBP BP-Mean 86 Respiration from ECG 21 SpO2 96 I&O: 04/12/20 04/13/20 04/14/20 06:59 06:59 06:59 Intake Total 2162 Output Total 2125 Balance 37 Result Diagrams: 04/13/20 05:15 04/13/20 05:15 Additional Labs: Accuchecks 04/13/20 04/12/20 04/12/20 10:31 21:26 16:12 POC Glucose 91 199 H 137 H Radiology Reviewed by me: Yes EKG Reviewed by me: Yes ROS - Review of Systems Constitutional: denies: fever, chills, sweats, weakness, malaise, other Eyes: denies: pain, vision change, conjunctivae inflammation, eyelid inflammation, redness, other ENT: denies: ear pain, ear discharge, nose pain, nose discharge, nose congestion, mouth pain, mouth swelling, throat pain, throat swelling, other Respiratory: denies: cough, dry, shortness of breath, hemoptysis, SOB with excertion, pleuritic pain, sputum, wheezing, other Cardiovascular: denies: no pertinent history, AFIB, CAD, CHF, HTN, [place], Syncope, Hyperlipidemia, Mitral valve stenosis, Aortic stenosis, Valve insufficiency, Pul monary hypertension, Other Gastrointestinal: denies: nausea, vomiting, abdominal pain, diarrhea, constipation, melena, hematochezia, other Genitourinary: denies: dysuria, frequency, incontinence, hematuria, retention, other Musculoskeletal: denies: neck pain, shoulder pain, arm pain, back pain, hand pain, leg pain, foot pain, other Skin: denies: rash, lesions, yahaira, bruising, other Neurological: reports: weakness All Systems: All other systems reviewed; all pertinent +/- noted in HPI/Subj - Medication Medications: Active Medications Generic Name Dose Route Start Last Admin Trade Name Freq PRN Reason Stop Dose Admin Acetaminophen 650 mg 04/12/20 02:14 04/13/20 05:56 Acetaminophen 325 Mg Tab PO 650 mg Q4H PRN Administration Headache/Fever/Mild Pain (1-3) Azathioprine 50 mg 04/12/20 09:00 04/13/20 10:07 Azathioprine 50 Mg Tab PO 50 mg BID LELO Administration Enoxaparin Sodium 40 mg 04/12/20 21:00 04/12/20 21:17 Enoxaparin Sodium 40 Mg/0.4 Ml Syringe SC 40 mg 2100 LELO Administration Ferrous Gluconate 324 mg 04/13/20 09:00 04/13/20 10:06 Ferrous Gluconate 324 Mg Tab PO 324 mg DAILY LELO Administration Fluconazole 100 mg 04/13/20 09:00 04/13/20 10:06 Fluconazole 100 Mg Tab PO 100 mg DAILY LELO Administration Fluoxetine HCl 20 mg 04/12/20 09:00 04/13/20 10:08 Fluoxetine Hcl 20 Mg Cap PO 20 mg DAILY LELO Administration Insulin Glargine 10 units/ 0.1 mls @ 0 mls/hr 04/12/20 21:00 04/12/20 22:34 Miscellaneous Medication SC 0.1 mls HS LELO Administration Immune Globulin 60 gm/ 600 mls @ 0 mls/hr 04/13/20 09:00 04/13/20 10:47 Miscellaneous Medication IVPB 04/14/20 09:01 600 mls Q24H LELO Administration As Directed Levothyroxine Sodium 100 mcg 04/12/20 06:00 04/13/20 05:52 Levothyroxine Sodium 100 Mcg Tab PO 100 mcg 0600 LELO Administration Lisinopril 20 mg 04/12/20 09:00 04/13/20 10:08 Lisinopril 20 Mg Tab PO 20 mg DAILY LELO Administration Metformin HCl 500 mg 04/13/20 08:00 04/13/20 10:06 Metformin Xr 500 Mg Tab PO 500 mg QAM-WM LELO Administration Pantoprazole Sodium 40 mg 04/12/20 09:00 04/13/20 10:07 Pantoprazole 40 Mg Tab PO 40 mg DAILY LELO Administration Prednisone 20 mg 04/13/20 08:00 04/13/20 10:07 Prednisone 20 Mg Tab PO 20 mg QAM-WM LELO Administration Pyridostigmine [place] 120 mg 04/12/20 12:00 04/13/20 05:52 Pyridostigmine [place] Ir 60 Mg Tab PO 120 mg Q6HR LELO Administration Rosuvastatin Calcium 10 mg 04/12/20 09:00 04/13/20 10:06 Rosuvastatin 10 Mg Tab PO 10 mg DAILY LELO Administration - Exam General Appearance: awake alert Eye: PERRL ENT: normocephalic atraumatic Neck: supple Respiratory: CTAB Cardiovascular: RRR Gastrointestinal: soft Extremities: no cyanosis Skin: normal turgor Neurological: no focal deficits, no new deficit Musculoskeletal: generalized weakness PSYCH: normal affect, normal behavior, A&O x 3, oriented to person, oriented to place, oriented to time Results - Labs Result Diagrams: 04/13/20 05:15 04/13/20 05:15 Lab results: WBC 5.8 thou/uL (4.8-10.8) 04/13/20 05:15 Hgb 10.4 g/dL (12.0-16.0) L 04/13/20 05:15 Hct 32.2 % (36.0-47.0) L 04/13/20 05:15 MCV 93.7 fL (78.0-98.0) 04/13/20 05:15 Plt Count 356 thou/uL (130-400) 04/13/20 05:15 Neutrophils % 50.0 % (42.0-75.0) 04/13/20 05:15 Sodium 138 mmol/L (136-145) 04/13/20 05:15 Potassium 3.6 mmol/L (3.5-5.1) 04/13/20 05:15 Chloride 108 mmol/L (98-107) H 04/13/20 05:15 Carbon Dioxide 24 mmol/L (22-29) 04/13/20 05:15 BUN 12 mg/dL (7.0-18.7) 04/13/20 05:15 Creatinine 0.61 mg/dL (0.6-1.1) 04/13/20 05:15 Glucose 86 mg/dL (70-105) 04/13/20 05:15 Calcium 8.6 mg/dL (7.8-10.44) 04/13/20 05:15 Total Bilirubin 0.3 mg/dL (0.2-1.2) 04/11/20 21:52 AST 17 U/L (5-34) 04/11/20 21:52 ALT 15 U/L (8-55) 04/11/20 21:52 Alkaline Phosphatase 47 U/L (40-110) 04/11/20 21:52 Troponin I Less than 0.010 ng/mL (< 0.028) 04/11/20 21:52 Serum Total Protein 6.9 g/dL (6.0-8.3) 04/11/20 21:52 Albumin 4.0 g/dL (3.5-5.0) 04/11/20 21:52 Urine Ketones 10 mg/dL (Negative) A 04/11/20 22:20 Urine Blood Negative (Negative) 04/11/20 22:20 Urine Nitrite Negative (Negative) 04/11/20 22:20 Ur Leukocyte Esterase 25 Eliazar/uL (Negative) A 04/11/20 22:20 Urine RBC 0-3 HPF (0-3) 04/11/20 22:20 Urine WBC 21-50 HPF (0-3) A 04/11/20 22:20 Ur Squamous Epith Cells 0-3 HPF (0-3) 04/11/20 22:20 Urine Bacteria 3+ HPF (None Seen) A 04/11/20 22:20 - Radiology Interpretation Chest x-ray Additional Comment: No acute cardiopulmonary process PN A/P (1) Myasthenia exacerbation Code(s): G70.01 - MYASTHENIA GRAVIS WITH (ACUTE) EXACERBATION Status: Acute (2) Chronic anemia Code(s): D64.9 - ANEMIA, UNSPECIFIED Status: Chronic (3) Dyslipidemia Code(s): E78.5 - HYPERLIPIDEMIA, UNSPECIFIED Status: Chronic (4) Mood disorder Code(s): F39 - UNSPECIFIED MOOD [AFFECTIVE] DISORDER Status: Chronic (5) Obesity (BMI 30.0-34.9) Code(s): E66.9 - OBESITY, UNSPECIFIED Status: Chronic (6) Diabetes Code(s): E11.9 - TYPE 2 DIABETES MELLITUS WITHOUT COMPLICATIONS Status: Chronic Qualifiers: Diabetes mellitus type: type 2 Diabetes mellitus group home insulin use: with group home use Diabetes mellitus complication status: without complication Qualified Code(s): E11.9 - Type 2 diabetes mellitus without complications; Z79.4 - 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 Cristobal is a 49-year-old female with medical history significant for hyp ertension, hyperlipidemia, and diabetes mellitus and recently diagnosed myasthenia gravis presented with myasthenia gravis exacerbation secondary to UTI. Continues to complain of generalized weakness but denies shortness of breath, double vision or ptosis. Continue IVIG for 3 days. Today is day 2 of 3. Continue home dose of Imuran, prednisone and Mestinon. Neurochecks every 4 hours. Monitor respiratory status. Continue home medications. Strict control of blood pressure and blood glucose. Continue medical management per primary team. PT/OT/speech. DVT prophylaxis. Plan discussed in detail with the patient.
[2020-04-13] MEDS: Ciprofloxacin 500 MG TAB PO SCH ×2 (21:04→21:25)
[2020-04-13] MEDS: Enoxaparin Sodium 40 MG/0.4 ML SYRINGE SC SCH (21:04)
[2020-04-13] MEDS: Insulin Glargine 10 UNITS in Pre-Filled Syringe 1 EACH SC SCH (22:14)
[2020-04-13] MEDS ORDERED: cefTRIAXone\\ROCEPHIN 1 GM in Sodium Chloride 0.9% 100 ML IVPB SCH (23:00)
[2020-04-14 05:38] LABS: #Basophils 0.1 thou/uL (0.0-0.2); #Lymphocytes 1.9 thou/uL (1.20-3.40); #Monocytes 0.4 thou/uL (0.11-0.59); #Neutrophils 1.9 thou/uL (1.40-6.50); %Basophils 1.4 % (0.0-1.0); %Lymphocytes 43.1 % (21.0-51.0); %Neutrophils 44.5 % (42.0-75.0); Hemoglobin 10.6 g/dL (12.0-16.0); Mean Corpuscular HGB CONC 32.9 g/dL (32.0-36.0); Mean Corpuscular Hemoglobin 30.4 pg (27.0-31.0); Mean Corpuscular Volume 92.4 fL (78.0-98.0); Mean Platelet Volume 6.5 fL (7.4-10.4); Platelet Count 361 thou/uL (130-400); RBC Distribution Width 16.1 % (11.5-14.5); Red Blood Cell (RBC) Count 3.47 mill/uL (4.20-5.40); White Blood Cell (WBC) Count 4.3 thou/uL (4.8-10.8)
[2020-04-14 06:01] LABS: Anion Gap 10 mmol/L (10-20); BUN (Urea Nitrogen) 10 mg/dL (7.0-18.7); Calc. Creatinine Clearance 138 mL/min (70-130); Calcium 8.6 mg/dL (7.8-10.44); Carbon Dioxide 25 mmol/L (22-29); Chloride 104 mmol/L (98-107); Glucose 97 mg/dL (70-105); Magnesium 2.1 mg/dL (1.6-2.6); Potassium 3.3 mmol/L (3.5-5.1); Sodium 136 mmol/L (136-145)
[2020-04-14] MEDS: Pyridostigmine Bromide IR 60 MG TAB PO SCH ×2 (06:02→10:45)
[2020-04-14] MEDS: Levothyroxine Sodium 100 MCG TAB PO SCH (06:02)
[2020-04-14] MEDS: Acetaminophen 325 MG TAB PO PRN ×2 (06:04→10:48)
[2020-04-14] MEDS ORDERED: Potassium Chloride 20 MEQ TAB PO SCH (06:30)
[2020-04-14] MEDS ORDERED: Sodium Chloride 0.65% Nasal 44 ML BOT EA NARE PRN (07:13)
[2020-04-14] MEDS ORDERED: Loperamide HCl 2 MG CAP PO PRN (07:13)
[2020-04-14] MEDS ORDERED: Bisacodyl 5 MG TAB PO PRN (07:13)
[2020-04-14] MEDS ORDERED: Cepastat Lozenges 1 LOZ PO PRN (07:13)
[2020-04-14] MEDS ORDERED: Loratadine 10 MG TAB PO PRN (07:13)
[2020-04-14] MEDS ORDERED: Zolpidem Tartrate 5 MG TAB PO PRN (07:13)
[2020-04-14] MEDS ORDERED: Senokot S 8.6-50 MG TAB PO PRN (07:13)
[2020-04-14] MEDS ORDERED: Ondansetron ODT 4 MG TAB PO PRN (07:13)
[2020-04-14] MEDS ORDERED: Benzonatate 100 MG CAP PO PRN (07:13)
[2020-04-14] MEDS ORDERED: GUAIFENESIN SF SOLN 200 MG/10 ML UDCUP PO PRN (07:13)
[2020-04-14] MEDS ORDERED: Calcium Carbonate 500 MG ChewTAB PO PRN (07:13)
--- NOTE | 2020-04-14 10:10 | PDOC.DS.DS ---
Provider Date of Admission: 04/12/20 05:42 Date of Discharge: 04/14/20 Admitting Provider: Julio Griffin MD Consultations: Neurology Primary Care Physician: MARLENE CLINTON Course Hospital Course: Patient is a 49 year old female with PMH myasthenia gravis, DM who presents to ED for weakness. Patient has been ill last few weeks, with UTI 2 weeks ago and a self=limited gastroenteritis last week. For the last 24 hours, however, patient has developed extreme global weakness similar to prior myasthenia gravis flares, she has been unable to ascend stairs in her home. She has fallen 4 times in last 24 hours. Patient has a neurologist she sees in [place], she actually saw him in last 24 hours, with no changes in management made. Patient is a on chronic steroids w/ PO prednisone daily as well as imuran and pyridostygmine. ED physician called patient's neurologist who recommended IVIG and in person neurology consultation in AM, IV IG ordered in ED. Patient admitted for further workup and care After admission neurology evaluated this patient, patient was treated with IVIG while in hospital, patient has significant improvement, during this admission for UTI we continued with the Rocephin, on discharge be changed to Keflex, patient will follow up with neurology after discharge, she will continue all her previous medication, patient is on room air, patient is not in respiratory dis tress, patient wants to go home today. Resuscitation Status: 04/12/20 02:14 Resuscitation Status Routine Resuscitation Status: FULL: Full Resuscitation Lab Results: 04/14/20 04:51 04/14/20 04:51 Abnormal Lab Results - Last 48 hrs 04/12/20 09:23: Free T3 1.27 L 04/13/20 05:15: Chloride 108 H 04/13/20 05:15: RBC 3.44 L, Hgb 10.4 L, Hct 32.2 L, RDW 16.4 H, MPV 6.4 L, Monocytes % 10.7 H, Basophils % 1.4 H, Monocytes # 0.6 H 04/14/20 04:51: Potassium 3.3 L 04/14/20 04:51: WBC 4.3 L, RBC 3.47 L, Hgb 10.6 L, Hct 32.1 L, RDW 16.1 H, MPV 6.5 L, Basophils % 1.4 H Microbiology - Entire Visit 04/11/20 00:00 Urine Straight Catheter Urine Culture - Final Escherichia coli Vitals: Vital Signs (12 hours) Temp Pulse Resp BP Pulse Ox 04/14/20 08:00 97.7 F 62 12 138/90 96 04/14/20 04:05 97.8 F 53 L 17 122/78 99 04/14/20 00:00 97.8 F 56 L 18 114/81 98 Weight Weight 177 lb 15.314 oz Most Recent Monitor Data Heart Rate from ECG 69 NIBP 124/67 NIBP BP-Mean 86 Respiration from ECG 21 SpO2 96 Physical Exam: The patient was seen and examined on the day of discharge. General Appearance: NAD, awake alert Eye: PERRL, anicteric sclera ENT: normocephalic atraumatic, no oropharyngeal lesions Neck: supple, symmetric, no JVD, no thyromegaly Respiratory: no wheezes, no rales, no ronchi Cardiovascular: RRR, no murmur, no gallops, no rubs Gastrointestinal: soft, non-tender, non-distended, normal bowel sounds Extremities: no cyanosis, no clubbing, no edema Skin: normal turgor, no lesions Neurological: no focal deficits Musculoskeletal: normal tone, normal strength PSYCH: normal affect, normal behavior Problem (1) UTI (urinary tract infection) Status: Acute Qualifiers: Urinary tract infection type: acute cystitis Hematuria presence: without hematuria Qualified Code(s): N30.00 - Acute cystitis without hematuria (2) Chronic anemia Code(s): D64.9 - ANEMIA, UNSPECIFIED Status: Chronic (3) Dyslipidemia Code(s): E78.5 - HYPERLIPIDEMIA, UNSPECIFIED Status: Chronic (4) Mood disorder Code(s): F39 - UNSPECIFIED MOOD [AFFECTIVE] DISORDER Status: Chronic (5) Obesity (BMI 30.0-34.9) Code(s): E66.9 - OBESITY, UNSPECIFIED Status: Chronic (6) Myasthenia exacerbation Code(s): G70.01 - MYASTHENIA GRAVIS WITH (ACUTE) EXACERBATION Status: Acute (7) HTN (hypertension) Code(s): I10 - ESSENTIAL (PRIMARY) HYPERTENSION Status: Chronic Qualifiers: Hypertension type: essential hypertension Qualified Code(s): I10 - Essential (primary) hypertension (8) Hypothyroidism Code(s): E03.9 - HYPOTHYROIDISM, UNSPECIFIED Status: Chronic Qualifiers: Hypothyroidism type: acquired Qualified Code(s): E03.9 - Hypothyroidism, unspecified Plan Prescriptions: Cephalexin [Keflex] 500 mg PO Q12H #10 cap Home Medications: Medication Instructions Recorded Confirmed Type Dulaglutide [Trulicity] 0.75 mg SC Q7D 01/15/20 02/19/20 History Ergocalciferol (Vitamin D2) 50,000 unit PO DAILY 01/15/20 02/19/20 History [Vitamin D2] FLUoxetine HCl [Prozac] 20 mg PO DAILY 01/15/20 02/19/20 History Ferrous Gluconate [Fergon] 324 mg PO DAILY 01/15/20 02/19/20 History Rosuvastatin [Crestor] 10 mg PO DAILY 01/15/20 02/19/20 History metFORMIN [Glucophage] 500 mg PO DAILY 01/15/20 02/19/20 History predniSONE 20 mg PO QAM-WM #15 tab 01/18/20 02/19/20 Rx Canagliflozin [Invokana] 300 mg PO DAILY 02/07/20 02/19/20 History Lisinopril 20 mg PO DAILY 02/07/20 02/19/20 History Levothyroxine Sodium [Synthroid] 100 mcg PO 0600 #30 tab 02/22/20 Rx Lorazepam [Ativan] 0.5 mg PO BID PRN #0 02/22/20 02/19/20 Rx Pyridostigmine [place] [Mestinon] 90 mg PO Q6HR tab 02/22/20 Rx azaTHIOprine [Imuran] 50 mg PO BID tab 02/22/20 Rx Cephalexin [Keflex] 500 mg PO Q12H #10 cap 04/14/20 Rx Allergies: No Known Drug Allergies Allergy (Verified 02/19/20 09:32) per patient report Activity:: Activity as Tolerated Nourishment:: Diabetic Diet Therapies:: Not Applicable Equipment/Supplies:: Not Applicable IV Therapy:: Not Applicable Referrals: OFELIA ZAVALA & [Primary Care Provider] - Disposition: HOME Quality CORE MEASURES:: N/A
[2020-04-14] MEDS: metFORMIN XR 500 MG TAB PO SCH (10:43)
[2020-04-14] MEDS: azaTHIOprine 50 MG TAB PO SCH (10:43)
[2020-04-14] MEDS: FLUoxetine HCl 20 MG CAP PO SCH (10:43)
[2020-04-14] MEDS: Fluconazole 100 MG TAB PO SCH (10:44)
[2020-04-14] MEDS: Rosuvastatin 10 MG TAB PO SCH (10:44)
[2020-04-14] MEDS: Ferrous Gluconate 324 MG TAB PO SCH (10:44)
[2020-04-14] MEDS: Lisinopril 20 MG TAB PO SCH (10:46)
[2020-04-14] MEDS: predniSONE 20 MG TAB PO SCH (10:46)
[2020-04-14] MEDS: OCTAGAM 10% 60 GM in Admixture Fee 1 EACH IVPB SCH (14:08)
[2020-04-14 15:48] VITALS: BP 138/87; TEMP 98.7
--- NOTE | 2020-04-15 13:54 | PDOC.NEUPN ---
- Subjective Encounter Date: 04/15/20 Subjective: Ms. Cristobal is doing well and his symptoms improved and she wanted to go home with outpatient rehab. - Objective Vital Signs & Weight: Weight Weight 177 lb 15.314 oz Most Recent Monitor Data Heart Rate from ECG 69 NIBP 124/67 NIBP BP-Mean 86 Respiration from ECG 21 SpO2 96 Result Diagrams: 04/14/20 04:51 04/14/20 04:51 Radiology Reviewed by me: Yes EKG Reviewed by me: Yes ROS - Review of Systems Constitutional: denies: fever, chills, sweats, weakness, malaise, other Eyes: denies: pain, vision change, conjunctivae inflammation, eyelid inflammation, redness, other ENT: denies: ear pain, ear discharge, nose pain, nose discharge, nose congestion, mouth pain, mouth swelling, throat pain, throat swelling, other Respiratory: denies: cough, dry, shortness of breath, hemoptysis, SOB with excertion, pleuritic pain, sputum, wheezing, other Genitourinary: denies: dysuria, frequency, incontinence, hematuria, retention, other Musculoskeletal: denies: neck pain, shoulder pain, arm pain, back pain, hand pain, leg pain, foot pain, other Neurological: reports: change in speech - Exam General Appearance: awake alert Eye: PERRL ENT: normocephalic atraumatic Neck: supple Respiratory: CTAB Cardiovascular: RRR Gastrointestinal: soft Extremities: no cyanosis Skin: normal turgor Neurological: CN's grossly intact, no new deficit Musculoskeletal: normal tone, no muscle wasting PSYCH: normal affect, normal behavior, A&O x 3, oriented to person, oriented to place, oriented to time Results - Labs Result Diagrams: 04/14/20 04:51 04/14/20 04:51 Lab results: WBC 4.3 thou/uL (4.8-10.8) L 04/14/20 04:51 Hgb 10.6 g/dL (12.0-16.0) L 04/14/20 04:51 Hct 32.1 % (36.0-47.0) L 04/14/20 04:51 MCV 92.4 fL (78.0-98.0) 04/14/20 04:51 Plt Count 361 thou/uL (130-400) 04/14/20 04:51 Neutrophils % 44.5 % (42.0-75.0) 04/14/20 04:51 Sodium 136 mmol/L (136-145) 04/14/20 04:51 Potassium 3.3 mmol/L (3.5-5.1) L 04/14/20 04:51 Chloride 104 mmol/L (98-107) 04/14/20 04:51 Carbon Dioxide 25 mmol/L (22-29) 04/14/20 04:51 BUN 10 mg/dL (7.0-18.7) 04/14/20 04:51 Creatinine 0.63 mg/dL (0.6-1.1) 04/14/20 04:51 Glucose 97 mg/dL (70-105) 04/14/20 04:51 Calcium 8.6 mg/dL (7.8-10.44) 04/14/20 04:51 Total Bilirubin 0.3 mg/dL (0.2-1.2) 04/11/20 21:52 AST 17 U/L (5-34) 04/11/20 21:52 ALT 15 U/L (8-55) 04/11/20 21:52 Alkaline Phosphatase 47 U/L (40-110) 04/11/20 21:52 Troponin I Less than 0.010 ng/mL (< 0.028) 04/11/20 21:52 Serum Total Protein 6.9 g/dL (6.0-8.3) 04/11/20 21:52 Albumin 4.0 g/dL (3.5-5.0) 04/11/20 21:52 Urine Ketones 10 mg/dL (Negative) A 04/11/20 22:20 Urine Blood Negative (Negative) 04/11/20 22:20 Urine Nitrite Negative (Negative) 04/11/20 22:20 Ur Leukocyte Esterase 25 Eliazar/uL (Negative) A 04/11/20 22:20 Urine RBC 0-3 HPF (0-3) 04/11/20 22:20 Urine WBC 21-50 HPF (0-3) A 04/11/20 22:20 Ur Squamous Epith Cells 0-3 HPF (0-3) 04/11/20 22:20 Urine Bacteria 3+ HPF (None Seen) A 04/11/20 22:20 - EKG Interpretation EKG: Normal sinus rhythm - Radiology Interpretation MRI - head Additional Comment: MRI of the brain x2 was negative for acute intracranial pathology. 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 Cristobal is a 49-year-old female with medical history significant for hypertension, hyperlipidemia, and diabetes mellitus and recently diagnosed myasthenia gravis presented with myasthenia gravis exacerbation secondary to UTI. Continues to complain of generalized weakness but denies shortness of breath, double vision or ptosis. Continue IVIG for 3 days. Today is day 2 of 3. Continue home dose of Imuran, prednisone and Mestinon. Neurochecks every 4 hours. Monitor respiratory status. Continue home medications. Strict control of blood pressure and blood glucose. Continue medical management per primary team. PT/OT/speech. DVT prophylaxis. Plan discussed in detail with the patient.
== END 2020-04-14 17:00 | disposition home or self-care (01) | DRG 57 ==
LOC: ERS 21:20 → ERHOLD 04-12 00:06 → OBSVTOIN 04-12 05:42 → IMCU/EMU 04-12 05:51 → 2SE 04-12 20:22
PROVIDERS: ADMIT Internal Medicine; ATTEND Internal Medicine
DX: G70.01 Myasthenia gravis with (acute) exacerbation (principal); B37.41 Candidal cystitis and urethritis; Z20.822 Contact with and (suspected) exposure to COVID-19; E11.9 Type 2 diabetes mellitus without complications; I10 Essential (primary) hypertension; E03.9 Hypothyroidism, unspecified; F32.9 Major depressive disorder, single episode, unspecified; E66.9 Obesity, unspecified; D64.9 Anemia, unspecified; Z91.81 History of falling; Z79.84 Long term (current) use of oral hypoglycemic drugs; Z79.52 Long term (current) use of systemic steroids; Z79.899 Other long term (current) drug therapy; Z68.30 Body mass index [BMI] 30.0-30.9, adult
CPT/HCPCS: 36415; 36416; 71045; 80048; 80053; 81003; 81015; 83036; 83735; 84439; 84443; 84481; 84484; 85025; 87077; 87086; 87186; 87635; 93005; 96365; G0378; J0696; J1568; J1650; J1720; J1815; J1956; J3490; J7500; J7512; U0003; U0005

== ENCOUNTER 2020-05-10 12:55 | Emergency (ER) | payer BC ==
[2020-05-10 14:11] LABS: #Lymphocytes 1.1 thou/uL (1.20-3.40); #Monocytes 0.6 thou/uL (0.11-0.59); #Neutrophils 4.3 thou/uL (1.40-6.50); %Basophils 0.6 % (0.0-1.0); %Eosinophils 0.3 % (0.0-10.0); %Lymphocytes 18.5 % (21.0-51.0); %Monocytes 10.5 % (0.0-10.0); %Neutrophils 70.1 % (42.0-75.0); Hemoglobin 12.7 g/dL (12.0-16.0); Mean Corpuscular HGB CONC 32.6 g/dL (32.0-36.0); Mean Corpuscular Hemoglobin 31.3 pg (27.0-31.0); Mean Corpuscular Volume 95.8 fL (78.0-98.0); Mean Platelet Volume 6.5 fL (7.4-10.4); Platelet Count 313 thou/uL (130-400); RBC Distribution Width 15.7 % (11.5-14.5); Red Blood Cell (RBC) Count 4.06 mill/uL (4.20-5.40); White Blood Cell (WBC) Count 6.1 thou/uL (4.8-10.8)
[2020-05-10 14:35] LABS: ALT (SGPT) 25 U/L (8-55); AST (SGOT) 28 U/L (5-34); Albumin 4.3 g/dL (3.5-5.0); Alkaline Phosphatase 50 U/L (40-110); Anion Gap 14 mmol/L (10-20); BUN (Urea Nitrogen) 9 mg/dL (7.0-18.7); Bilirubin, Total 0.4 mg/dL (0.2-1.2); Calc. Creatinine Clearance 0 mL/min (70-130); Carbon Dioxide 24 mmol/L (22-29); Chloride 102 mmol/L (98-107); Globulin 3.2 g/dL (2.4-3.5); Glucose 115 mg/dL (70-105); Potassium 4.3 mmol/L (3.5-5.1); Protein, Total 7.5 g/dL (6.0-8.3); Sodium 136 mmol/L (136-145)
[2020-05-10 16:26] LABS: Bilirubin Negative (Negative); Blood, Urine Negative (Negative); Clarity Clear (Clear); Glucose, Urine (Dipstick) Greater than 1000 mg/dL (Negative); Ketone, Urine Trace mg/dL (Negative); Leukocyte Negative Leu/uL (Negative); Nitrite Negative (Negative); Protein, Urine (Dipstick) Negative (Neg-Trace); Specific Gravity, Urine 1.043 (1.002-1.036); Urobilinogen Normal mg/dL (Less than 2); pH, Urine 5.5 (5.0-9.0)
[2020-05-10] MEDS ORDERED: Ketorolac Tromethamine 30 MG/ML VIAL ONE (17:38)
== END 2020-05-10 19:37 | disposition home or self-care (01) ==
LOC: ERS 12:55
DX: U07.1 COVID-19 (principal); J12.82 Pneumonia due to coronavirus disease 2019; E11.9 Type 2 diabetes mellitus without complications; E03.9 Hypothyroidism, unspecified; I10 Essential (primary) hypertension; Z79.84 Long term (current) use of oral hypoglycemic drugs; Z79.899 Other long term (current) drug therapy
CPT/HCPCS: 36415; 71045; 80053; 81003; 84484; 85025; 93005; 96374; J1885

== ENCOUNTER 2021-05-30 08:31 | Day surgery (SDC) | payer BC ==
[2021-05-27 13:20] VITALS: BMI 37.7
[2021-05-30] MEDS ORDERED: Lidocaine 1% w/Epinephrine 1:100K 20 ML VIAL ONE (10:39)
[2021-05-30] MEDS ORDERED: Bacitracin Zinc Ointment 30 gm TUBE ONE (10:39)
[2021-05-30] MEDS ORDERED: Fentanyl 100 MCG/2 ML VIAL ONE ×2 (10:48→13:00)
[2021-05-30] MEDS ORDERED: Hydrocortisone Sod Succ/PF 100 mg/2 ml Vial ONE (10:49)
[2021-05-30] MEDS ORDERED: Midazolam HCl 2 mg/2 ml Vial ONE ×2 (11:12→11:18)
[2021-05-30] MEDS ORDERED: PHENYLEPHRINE-NS 100 MCG/ML 10 ML SYRINGE ONE ×2 (11:49→12:21)
[2021-05-30] MEDS ORDERED: Ondansetron PF 4 MG/2 ML Vial ONE (11:49)
[2021-05-30] MEDS ORDERED: Lidocaine 1% PF 5 ML VIAL ONE (11:49)
[2021-05-30] MEDS ORDERED: ePHEDrine 50 MG/ML VIAL ONE (11:49)
[2021-05-30] MEDS ORDERED: PROPOFOL 200 MG/20 ML VIAL ONE (11:49)
[2021-05-30] MEDS ORDERED: ePHEDrine Sulfate 50 MG/10 ML VIAL ONE (12:21)
[2021-05-30] MEDS ORDERED: Phenylephrine 10 MG/ML VIAL ONE (12:22)
[2021-05-30] MEDS ORDERED: HYDROcodone/Acetaminophen 5/325 mg Tablet ONE (15:03)
== END 2021-05-30 15:25 | disposition home or self-care (01) ==
LOC: SDC 08:31
PROVIDERS: ATTEND Specialist
PROC: 0CB90ZZ Excision of Left Parotid Gland, Open Approach (ICD-10-PCS; principal; 2021-05-30)
DX: D17.79 Benign lipomatous neoplasm of other sites (principal); E11.9 Type 2 diabetes mellitus without complications; E07.9 Disorder of thyroid, unspecified; I10 Essential (primary) hypertension; Z79.84 Long term (current) use of oral hypoglycemic drugs; Z79.890 Hormone replacement therapy; Z79.899 Other long term (current) drug therapy
CPT/HCPCS: 36416; 88304; C1776; J1720; J2250; J2370; J2405; J2704; J3010; J3490